=== PATIENT | female | born 1995 | race Caucasian/White ===

== ENCOUNTER 2016-06-08 11:29 | Inpatient (IN) | payer OTHER ==
[2016-06-08] MEDS ORDERED: Sodium Chloride 0.9% 1,000 ML IV ONE ×2 (12:30→13:52)
[2016-06-08] MEDS ORDERED: diphenhydrAMINE 50 MG/ML SDV IVPUSH ONE (12:30)
[2016-06-08] MEDS ORDERED: Sodium Chloride 0.9% 10 ML Syringe FLUSH PRN (12:30)
[2016-06-08] MEDS ORDERED: Metoclopramide 10 MG/2 ML SDV IVPUSH ONE (12:31)
--- NOTE | 2016-06-08 12:38 | EDM.PDOC ---
ED HPI GI/ABDOMINAL - General Chief Complaint: Gastrointestinal Problem Stated Complaint: 7 WK PREG/SEVERE NAUSEA Time Seen by Provider: 06/08/16 12:15 Source of Information: Reports: Patient History Limitations: Reports: No limitations - History of Present Illness INITIAL COMMENTS - FREE TEXT/NARRATIVE: Patient is a 21-year-old female who is approximately 7 weeks who presents to the ED complaining of severe morning sickness that started at the fifth week of . States the nausea and vomiting has been persistent with little relief. She has been unable to keep any liquids or foods down. States she has mild abdominal discomfort described as crampy sensation when vomiting. In addition she complains of burning sensation to the posterior throat secondary to vomiting. was confirmed in the clinic. She is currently on no vitamins secondary to uncontrolled emesis. First appointment TELETYPE INSTALLER specialist is July 04. She has a history of cholecystectomy. Preg hx [id number]. She denies any vaginal bleeding, CP,SOB, Fever/Chills, or dysuria. Timing/Duration: Reports: Constant, Waxing/waning Location: generalized Quality: Reports: cramping Severity: mild Worsens with: Reports: vomiting Context: Reports: other () Associated Symptoms (-Female): Reports: diarrhea (intermittent), nausea/ vomiting Treatments SET UP WORKER: Reports: Other (see below) (none stated. ) - Related Data Allergies/ADRs: Allergies Allergy/AdvReac Type Severity Reaction Status Date / Time No Known Allergies Allergy Verified 03/27/16 16:48 Home Meds: Home Meds PNV95/Ferrous Fumarate/FA [ Tablet] 1 each PO DAILY 06/08/16 [History] Past Medical History Genitourinary History: Reports: UTI, recurrent TELETYPE INSTALLER History: Reports: , Spontaneous Other OB/BYN History: x2 - Past Surgical History GI Surgical History: Reports: Cholecystectomy Social & Family History - Family History Family Medical History: Noncontributory - Tobacco Use Smoking Status *Q: Never Smoker - Caffeine Use Caffeine Use: Reports: Soda - Recreational Drug Use Recreational Drug Use: No ED ROS GENERAL - Review of Systems Review Of Systems: See Below Constitutional: Reports: malaise, decreased appetite. Denies: fever, chills HEENT: Reports: Throat pain (From vomiting. ). Denies: Throat swelling Respiratory: Denies: Shortness of Breath, Cough, Sputum Cardiovascular: Denies: Chest pain, Lightheadedness GI/Abdominal: Reports: Abdominal pain (cramping with vomiting. ), Diarrhea, Decreased appetite, Hematemesis, Nausea, Vomiting. Denies: Constipation : Reports: no symptoms Musculoskeletal: Reports: no symptoms Neurological: Reports: Dizziness ED EXAM, GI/ABD - Physical Exam Exam: See Below Exam Limited By: Other (vomiting) General Appearance: alert, WD/WN, moderate distress Ears: hearing grossly normal Nose: normal inspection Throat/Mouth: Normal inspection, Normal oropharynx, Normal voice, No airway compromise Neck: normal inspection, supple, non-tender Respiratory/Chest: no respiratory distress, lungs clear, normal breath sounds, no accessory muscle use Cardiovascular: normal peripheral pulses, regular rate, rhythm GI/Abdominal: normal bowel sounds, soft, non tender, no organomegaly, no distention Neurological: alert, oriented, CN II-XII intact, normal cognition, no motor/ sensory deficits Psychiatric: normal affect, normal mood Skin Exam: Warm, Dry, Intact, Normal color Course - Vital Signs Last Recorded V/S: Last Vital Signs Temp 97.9 F 06/09/16 15:48 Pulse 65 06/09/16 15:48 Resp 13 06/09/16 15:48 BP 91/49 L 06/09/16 15:48 Pulse Ox 97 06/09/16 15:48 - Orders/Labs/Meds Orders: Medication Orders Sodium Chloride (Normal Saline) 1,000 mls @ 250 mls/hr IV ASDIRECTED [facility] Last Admin: 06/08/16 16:16 Dose: 250 mls/hr Dextrose/Lactated Ringer's (Dextrose 5%-Lactated Ringers) 1,000 mls @ 150 mls/ hr IV ASDIRECTED [facility] Last Admin: 06/09/16 15:49 Dose: 150 mls/hr Infusion: 06/09/16 15:49 Dose: 150 mls/hr Admin: 06/09/16 09:26 Dose: 150 mls/hr Infusion: 06/09/16 09:17 Dose: 150 mls/hr Admin: 06/09/16 02:36 Dose: 150 mls/hr Infusion: 06/09/16 02:31 Dose: 150 mls/hr Admin: 06/08/16 19:50 Dose: 150 mls/hr Magnesium Sulfate (Pharmacy To Dose - Magnesium Replacement) 1 dose .XX ASDIRECTED [facility] Metoclopramide HCl (Reglan) 10 mg IVPUSH Q6H PRN PRN Reason: Nausea Last Admin: 06/09/16 17:18 Dose: 10 mg Admin: 06/09/16 05:20 Dose: 10 mg Admin: 06/08/16 17:59 Dose: 10 mg Morphine Sulfate (Morphine) 10 mg IM Q6H PRN PRN Reason: Pain (moderate 4-6) Last Admin: 06/08/16 21:46 Dose: 10 mg Potassium Chloride (Pharmacy To Dose - Potassium Replacement) 1 dose .XX ASDIRECTED [facility] Promethazine HCl (Phenergan) 25 mg IM Q6H PRN PRN Reason: Nausea/Vomiting Last Admin: 06/08/16 21:47 Dose: 25 mg Sodium Chloride (Saline Flush) 10 ml FLUSH ASDIRECTED PRN PRN Reason: Keep Vein Open Last Admin: 06/08/16 12:51 Dose: 10 ml Labs: Laboratory Tests 06/08/16 06/08/16 06/08/16 Range/Units 12:39 12:39 12:39 WBC 10.13 H (3.98-10.04) K/mm3 RBC 5.43 H (3.98-5.22) M/mm3 Hgb 15.9 H (11.2-15.7) gm/L Hct 42.6 (34.1-44.9) % MCV 78.5 L (79.4-94.8) fl MCH 29.3 (25.6-32.2) pg MCHC 37.3 H (32.2-35.5) g/dl RDW Std Deviation 35.9 L (36.4-46.3) fL Plt Count 252 (182-369) K/mm3 MPV 11.8 (9.4-12.3) fl Neut % (Auto) 83.4 H (34.0-71.1) % Lymph % (Auto) 10.7 L (19.3-51.7) % [place] % (Auto) 5.7 (4.7-12.5) % Eos % (Auto) 0 L (0.7-5.8) Baso % (Auto) 0.1 (0.1-1.2) % Neut # 8.45 H (1.56-6.13) K/mm3 Lymph # 1.08 L (1.18-3.74) K/mm3 [place] # 0.58 H (0.24-0.36) K/mm3 Eos # 0.00 L (0.04-0.36) K/mm3 Baso # 0.01 (0.01-0.08) K/mm3 Manual Slide Review Normal smear Sodium 136 (136-145) mEq/L Potassium 3.3 L (3.5-5.1) mEq/L Chloride 99 (98-107) mEq/L Carbon Dioxide 21 (21-32) mEq/L Anion Gap 19.3 H (5-15) BUN 12 (7-18) mg/dL Creatinine 0.8 (0.55-1.02) mg/dL Est Cr Clr Drug Dosing 121.30 mL/min Estimated GFR (MDRD) > 60 (>60) mL/min BUN/Creatinine Ratio 15.0 (14-18) Glucose 109 H (74-106) mg/dL Calcium 10.1 (8.5-10.1) mg/dL Magnesium (1.8-2.4) mg/dl Total Bilirubin 1.0 (0.2-1.0) mg/dL AST 24 (15-37) U/L ALT 49 (14-59) U/L Alkaline Phosphatase 85 (46-116) U/L C-Reactive Protein 1.6 H* (<1.0) mg/dL Total Protein 8.7 H (6.4-8.2) g/dl Albumin 4.2 (3.4-5.0) g/dl Globulin 4.5 gm/dL Albumin/Globulin Ratio 0.9 L (1-2) Lipase 89 (73-393) U/L HCG, Quant 812999.0 mIU/mL Urine Color (Yellow) Urine Appearance (Clear) Urine pH (5.0-8.0) Ur Specific [place] (1.005-1.030) Urine Protein (Negative) Urine Glucose (UA) (Negative) Urine Ketones (Negative) Urine Occult Blood (Negative) Urine Nitrite (Negative) Urine Bilirubin (Negative) Urine Urobilinogen (0.2-1.0) Ur Leukocyte Esterase (Negative) Urine RBC (0-5) /hpf Urine WBC (0-5) /hpf Ur Squamous Epith Cells (0-5) /hpf Urine Bacteria (FEW) /hpf Urine Mucus (FEW) /hpf Hep Bs Antigen (NONREACTIVE) HIV-1 Ab Rapid Screen (NEGATIVE) Rubella IgG Antibody (REACTIVE) Blood Type Gel Antibody Screen 06/08/16 06/08/16 06/08/16 Range/Units 12:39 12:39 12:39 WBC (3.98-10.04) K/mm3 RBC (3.98-5.22) M/mm3 Hgb (11.2-15.7) gm/L Hct (34.1-44.9) % MCV (79.4-94.8) fl MCH (25.6-32.2) pg MCHC (32.2-35.5) g/dl RDW Std Deviation (36.4-46.3) fL Plt Count (182-369) K/mm3 MPV (9.4-12.3) fl Neut % (Auto) (34.0-71.1) % Lymph % (Auto) (19.3-51.7) % [place] % (Auto) (4.7-12.5) % Eos % (Auto) (0.7-5.8) Baso % (Auto) (0.1-1.2) % Neut # (1.56-6.13) K/mm3 Lymph # (1.18-3.74) K/mm3 [place] # (0.24-0.36) K/mm3 Eos # (0.04-0.36) K/mm3 Baso # (0.01-0.08) K/mm3 Manual Slide Review Sodium (136-145) mEq/L Potassium (3.5-5.1) mEq/L Chloride (98-107) mEq/L Carbon Dioxide (21-32) mEq/L Anion Gap (5-15) BUN (7-18) mg/dL Creatinine (0.55-1.02) mg/dL Est Cr Clr Drug Dosing mL/min Estimated GFR (MDRD) (>60) mL/min BUN/Creatinine Ratio (14-18) Glucose (74-106) mg/dL Calcium (8.5-10.1) mg/dL Magnesium 1.9 (1.8-2.4) mg/dl Total Bilirubin (0.2-1.0) mg/dL AST (15-37) U/L ALT (14-59) U/L Alkaline Phosphatase (46-116) U/L C-Reactive Protein (<1.0) mg/dL Total Protein (6.4-8.2) g/dl Albumin (3.4-5.0) g/dl Globulin gm/dL Albumin/Globulin Ratio (1-2) Lipase (73-393) U/L HCG, Quant mIU/mL Urine Color (Yellow) Urine Appearance (Clear) Urine pH (5.0-8.0) Ur Specific [place] (1.005-1.030) Urine Protein (Negative) Urine Glucose (UA) (Negative) Urine Ketones (Negative) Urine Occult Blood (Negative) Urine Nitrite (Negative) Urine Bilirubin (Negative) Urine Urobilinogen (0.2-1.0) Ur Leukocyte Esterase (Negative) Urine RBC (0-5) /hpf Urine WBC (0-5) /hpf Ur Squamous Epith Cells (0-5) /hpf Urine Bacteria (FEW) /hpf Urine Mucus (FEW) /hpf Hep Bs Antigen Nonreactive (NONREACTIVE) HIV-1 Ab Rapid Screen Negative (NEGATIVE) Rubella IgG Antibody Reactive (pos) (REACTIVE) Blood Type Gel Antibody Screen 06/08/16 06/08/16 Range/Units 12:39 13:59 WBC (3.98-10.04) K/mm3 RBC (3.98-5.22) M/mm3 Hgb (11.2-15.7) gm/L Hct (34.1-44.9) % MCV (79.4-94.8) fl MCH (25.6-32.2) pg MCHC (32.2-35.5) g/dl RDW Std Deviation (36.4-46.3) fL Plt Count (182-369) K/mm3 MPV (9.4-12.3) fl Neut % (Auto) (34.0-71.1) % Lymph % (Auto) (19.3-51.7) % [place] % (Auto) (4.7-12.5) % Eos % (Auto) (0.7-5.8) Baso % (Auto) (0.1-1.2) % Neut # (1.56-6.13) K/mm3 Lymph # (1.18-3.74) K/mm3 [place] # (0.24-0.36) K/mm3 Eos # (0.04-0.36) K/mm3 Baso # (0.01-0.08) K/mm3 Manual Slide Review Sodium (136-145) mEq/L Potassium (3.5-5.1) mEq/L Chloride (98-107) mEq/L Carbon Dioxide (21-32) mEq/L Anion Gap (5-15) BUN (7-18) mg/dL Creatinine (0.55-1.02) mg/dL Est Cr Clr Drug Dosing mL/min Estimated GFR (MDRD) (>60) mL/min BUN/Creatinine Ratio (14-18) Glucose (74-106) mg/dL Calcium (8.5-10.1) mg/dL Magnesium (1.8-2.4) mg/dl Total Bilirubin (0.2-1.0) mg/dL AST (15-37) U/L ALT (14-59) U/L Alkaline Phosphatase (46-116) U/L C-Reactive Protein (<1.0) mg/dL Total Protein (6.4-8.2) g/dl Albumin (3.4-5.0) g/dl Globulin gm/dL Albumin/Globulin Ratio (1-2) Lipase (73-393) U/L HCG, Quant mIU/mL Urine Color Yellow (Yellow) Urine Appearance Slt cloudy H (Clear) Urine pH 5.5 (5.0-8.0) Ur Specific [place] > or = 1.030 (1.005-1.030) Urine Protein 2+ H (Negative) Urine Glucose (UA) Negative (Negative) Urine Ketones 3+ H (Negative) Urine Occult Blood Negative (Negative) Urine Nitrite Negative (Negative) Urine Bilirubin 1+ H (Negative) Urine Urobilinogen 1.0 (0.2-1.0) Ur Leukocyte Esterase Negative (Negative) Urine RBC 0-5 (0-5) /hpf Urine WBC 0-5 (0-5) /hpf Ur Squamous Epith Cells 0-5 (0-5) /hpf Urine Bacteria Moderate H (FEW) /hpf Urine Mucus Many H (FEW) /hpf Hep Bs Antigen (NONREACTIVE) HIV-1 Ab Rapid Screen (NEGATIVE) Rubella IgG Antibody (REACTIVE) Blood Type O POSITIVE Gel Antibody Screen Negative Meds: Medications Generic Name Dose Route Start Last Admin Trade Name Courtney PRN Reason Stop Dose Admin Sodium Chloride 1,000 mls @ 250 mls/hr 06/08/16 16:15 06/08/16 16:16 Normal Saline IV 250 mls/hr ASDIRECTED KIKI Administration Dextrose/Lactated Ringer's 1,000 mls @ 150 mls/hr 06/08/16 19:09 06/09/16 15: 49 Dextrose 5%-Lactated Ringers IV 150 mls/hr ASDIRECTED KIKI Administration Magnesium Sulfate 1 dose 06/08/16 19:30 Pharmacy To Dose - Magnesium Replacement .XX ASDIRECTED [facility] Metoclopramide HCl 10 mg 06/08/16 19:09 06/09/16 17:18 Reglan IVPUSH 10 mg Q6H PRN Administration Nausea Morphine Sulfate 10 mg 06/08/16 21:33 06/08/16 21:46 Morphine IM 10 mg Q6H PRN Administration Pain (moderate 4-6) Potassium Chloride 1 dose 06/08/16 19:30 Pharmacy To Dose - Potassium Replacement .XX ASDIRECTED [facility] Promethazine HCl 25 mg 06/08/16 21:34 06/08/16 21:47 Phenergan IM 25 mg Q6H PRN Administration Nausea/Vomiting Sodium Chloride 10 ml 06/08/16 12:30 06/08/16 12:51 Saline Flush FLUSH 10 ml ASDIRECTED PRN Administration Keep Vein Open Discontinued Medications Generic Name Dose Route Start Last Admin Trade Name Courtney PRN Reason Stop Dose Admin Diphenhydramine HCl 50 mg 06/08/16 12:30 06/08/16 12:55 Benadryl IVPUSH 06/08/16 12:31 50 mg ONETIME ONE Administration Sodium Chloride 1,000 mls @ 999 mls/hr 06/08/16 12:30 06/08/16 12:49 Normal Saline IV 06/08/16 13:30 999 mls/hr ONETIME ONE Administration Sodium Chloride 1,000 mls @ 999 mls/hr 06/08/16 13:52 06/08/16 13:58 Normal Saline IV 06/08/16 14:52 999 mls/hr ONETIME ONE Administration Potassium Chloride 10 meq/ 100 mls @ 100 mls/hr 06/08/16 19:30 06/08/16 23:41 Premix IV 06/08/16 23:29 100 mls/hr Q1H KIKI Administration Magnesium Sulfate 50 mls @ 50 mls/hr 06/08/16 19:45 06/09/16 00:44 Magnesium Sulfate 2 Gm In Water 50 Ml IV 06/08/16 20:44 50 mls/hr ONETIME ONE Administration Lorazepam 0.5 mg 06/08/16 15:41 06/08/16 15:59 Ativan IVPUSH 06/08/16 15:42 0.5 mg ONETIME ONE Administration Metoclopramide HCl 7.5 mg 06/08/16 12:31 06/08/16 12:49 Reglan IVPUSH 06/08/16 12:32 7.5 mg ONETIME ONE Administration Metoclopramide HCl Confirm 06/08/16 17:56 06/08/16 19:40 Reglan Administered 06/08/16 17:57 Not Given Dose 10 mg .ROUTE .STK-MED ONE Ondansetron HCl 8 mg 06/08/16 14:36 06/08/16 15:54 Zofran IVPUSH 06/08/16 14:37 8 mg ONETIME ONE Administration Potassium Chloride 40 meq 06/08/16 14:03 06/08/16 14:08 Klor-Con M20 PO 06/08/16 14:04 40 meq ONETIME ONE Administration Promethazine HCl 25 mg 06/08/16 14:45 06/08/16 15:02 Phenergan IM 06/08/16 14:46 25 mg ONETIME ONE Administration - Re-Assessments/Exams Free Text/Narrative Re-Assessment/Exam: Order peripheral IV with normal saline 1000 mL per hour, reglan 7.5, benadryl 50 mg IV, CBC, chem 14, CRP, UA with micro, quantitative hCG, lipase, UA with micro. 06/08/16 12:34 Labs reviewed. 06/08/16 13:53 reassessment, nausea vomiting has subsided with the above therapies. She is resting comfortably. Will order additional liter of normal saline. 06/08/16 14:02 Patient able to tolerate PO medications. Ordered potassium supplementation. 06/08/16 14:36 reassessment, patient vomited short after swallowing a potassium supplementation. Have ordered Zofran 8 mg IV. Patient's currently receiving a second liter of fluid. 06/08/16 14:40 Discontinued IV Zofran. Patient refused. Will look at ordering IM Phenergan. 06/08/16 15:41 Reassessement, Patients nausea/emesis has not improved. Ordered ativan 0.5mg IVP. Will arrange admission to the hospital. 06/08/16 15:[address] Paul on-call TELETYPE INSTALLER specialist. Requested Dr. Cardenas admit for management of nausea and rehydration. Dr. Paul will manage the . Requests N.p.o. after midnight gallbladder ultrasound in the a.m. Upon admission IV fluids started lactated Ringer's 20 mEq per bag of LR150 per hour. In addition he requests CMP and CBC in the a.m. Test for H.Pylori. Transvaginal ultrasound will be obtained as well in the a.m. 06/08/16 16:24 Case management is completing MCG in preparation for admission. Attempted to contact Dr. Cardenas with no answer. 06/08/16 16:34 Dr. Paul will admit to the OB Floor and consult Dr. Cardenas for management of electrolyte/Nausea/Vomiting. Admission orders placed by Dr. Snow. Departure - Departure Time of Disposition: 16:35 Disposition: Admitted As Inpatient 67 Clinical Impression: Hyperemesis arising during , Dehydration, Hypokalemia
[2016-06-08] MEDS ORDERED: Potassium Chloride 20 MEQ Tab.ER PO ONE (14:03)
[2016-06-08] MEDS ORDERED: Ondansetron 4 MG/2 ML SDV IVPUSH ONE (14:36)
[2016-06-08] MEDS ORDERED: Promethazine 25 MG/ML SDV IM ONE (14:45)
[2016-06-08] MEDS ORDERED: LORazepam 2 MG/ML MDV IVPUSH ONE (15:41)
[2016-06-08] MEDS ORDERED: Sodium Chloride 0.9% 1,000 ML IV SCH (16:15)
--- NOTE | 2016-06-08 17:39 | PCM.LDHP ---
L&D History of Present Illness - General Date of Service: 06/08/16 Admit Problem/Dx: Admission Diagnosis/Problem Admission Diagnosis/Problem Vomiting during Source of Information: Patient History Limitations: Reports: No limitations - History of Present Illness Introduction:: 21-year-old, G2, P0, 010, LMP 04/20/16 with estimated gestational age of 7 weeks one day and ANETA by LMP 01/27/17 . Patient presented to the ER with 2 week history of nausea and vomiting of . Patient had one previous with miscarriage which occurred spontaneously without medication. After the miscarriage, and no D&C performed. Patient unsure. Blood type and Rh. Same has been ordered. Patient has had no vaginal bleeding transvaginal OB ultrasound has been ordered for tomorrow morning. Patient has had previous, cholecystectomy. No adnexal pain. Patient unable: Solid. Neck was hyperemesis , gravidarum with nausea and vomiting, and metabolic embolic Timing/Duration: Reports: day(s):, gradual onset Improves with: Reports: None Worsens with: Reports: None Associated Symptoms: Reports: N - Related Data Allergies/Adverse Reactions: Allergies Allergy/AdvReac Type Severity Reaction Status Date / Time No Known Allergies Allergy Verified 03/27/16 16:48 Home Medications: Home Meds PNV95/Ferrous Fumarate/FA [ Tablet] 1 each PO DAILY 06/08/16 [History] Past Medical History Genitourinary History: Reports: UTI, recurrent BUYING INTERN History: Reports: , Spontaneous : 2 Para: 0 (0010) Other OB/BYN History: x2 - Past Surgical History GI Surgical History: Reports: Cholecystectomy Social & Family History - Family History Family Medical History: Noncontributory - Tobacco Use Smoking Status *Q: Never Smoker - Caffeine Use Caffeine Use: Reports: Soda - Recreational Drug Use Recreational Drug Use: No H&P Review of Systems - Review of Systems: Review Of Systems: See Below General: Reports: no symptoms HEENT: Reports: no symptoms Pulmonary: Reports: No Symptoms Cardiovascular: Reports: no symptoms Gastrointestinal: Reports: Nausea, Vomiting Genitourinary: Reports: no symptoms Musculoskeletal: Reports: no symptoms Skin: Reports: no symptoms Psychiatric: Reports: no symptoms Neurological: Reports: No Symptoms Hematologic/Lymphatic: Reports: no symptoms Immunologic: Reports: no symptoms L&D Exam - Exam Exam: See Below - Vital Signs Vital Signs: Last Vital Signs Temp 98.4 F 06/08/16 11:45 Pulse 92 06/08/16 11:45 Resp 18 06/08/16 11:45 BP 154/107 H 06/08/16 11:45 Pulse Ox 99 06/08/16 11:45 Weight: 200 lb - OB Specific Fundal Height in cm: 7 - Exam General: alert, oriented HEENT: Mucosa moist & pink (Dry, patient appears dehydrated) Neck: supple, trachea midline Lungs: Clear to auscultation, Normal respiratory effort Cardiovascular: regular rate, regular rhythm Abdomen: normal bowel sounds, soft Genitourinary: Normal external exam (Uterus is retroflexed, 7-8 week size) Extremities: normal inspection Skin: warm, dry, intact Psychiatric: alert, normal affect, normal mood - Patient Data Result Diagrams: 06/08/16 12:39 06/08/16 12:39 - Problem List (1) 7 weeks gestation of SNOMED Code(s): 04468169 ICD Code: Z3A.01 - LESS THAN 8 WEEKS GESTATION OF Status: Acute Current Visit: Yes (2) Dehydration SNOMED Code(s): 68440227 ICD Code: E86.0 - DEHYDRATION Status: Acute Current Visit: Yes (3) Hyperemesis arising during SNOMED Code(s): 06997170 ICD Code: O21.0 - MILD HYPEREMESIS GRAVIDARUM Status: Acute Current Visit : Yes (4) Hypokalemia SNOMED Code(s): 57949018 ICD Code: E87.6 - HYPOKALEMIA Status: Acute Current Visit: Yes Problem List Initiated/Reviewed/Updated: No Orders Last 24hrs: Active Orders 24 hr Category Date Time Status Patient Status Manage Transfer [TRANSFER] Routine ADT 06/08/16 17:13 Active Notify Provider Consults [RC] ASDIRECTED Care 06/08/16 17:30 Active Consult to Physician [CONS] Urgent Cons 06/08/16 17:27 Active Medication Orders Sodium Chloride (Normal Saline) 1,000 mls @ 250 mls/hr IV ASDIRECTED KIKI Last Admin: 06/08/16 16:16 Dose: 250 mls/hr Sodium Chloride (Saline Flush) 10 ml FLUSH ASDIRECTED PRN PRN Reason: Keep Vein Open Last Admin: 06/08/16 12:51 Dose: 10 ml
[2016-06-08] MEDS ORDERED: Metoclopramide 10 MG/2 ML SDV ONE (17:56)
[2016-06-08] MEDS: Metoclopramide 10 MG/2 ML SDV IVPUSH PRN (17:59)
--- NOTE | 2016-06-08 19:03 | PCM.CONS ---
H&P History of Present Illness - General Date of Service: 06/08/16 Admit Problem/Dx: Admission Diagnosis/Problem Admission Diagnosis/Problem Vomiting during Source of Information: Patient, Family, Old records, Provider, RN notes reviewed History Limitations: Reports: No limitations - History of Present Illness Initial Comments - Free Text/Narative: This is a pleasant 21 yo, G2, P0, 010, LMP 04/20/16 with estimated gestational age of 7 weeks who comes in with a 2 week hx/o nausea and vomiting. She denies any other acute issues. Her initial work in ED shows a CBC remarkable for WBC 10.13, Hgb15.9, and Neutrophils 8.45. He Chemistry is significant for K 3.3, AG 19.3, BS 109, CRP 1.6, Total protein 8.7, and Hcg [id number]. UA shows spec gravity > or + 1030 suggestive of dehydration. Hospitalist Team was consulted for medical management related to e-lytes abnormality. 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 Denies: fever, chills, weakness HEENT: Reports: no symptoms Pulmonary: Denies: Shortness of Breath Cardiovascular: Denies: chest pain Gastrointestinal: Reports: Nausea, Vomiting. Denies: Abdominal pain Genitourinary: Reports: no symptoms Musculoskeletal: Reports: no symptoms Skin: Denies: cyanosis, pruritis, rash, erythema Psychiatric: Denies: depression, anxiety, hallucinations Neurological: Denies: Confusion, Difficulty Walking, Gait Disturbance Hematologic/Lymphatic: Reports: no symptoms Immunologic: Reports: no symptoms Exam - Exam Exam: See Below - Vital Signs Vital Signs: Last Vital Signs Temp 37.1 C 06/08/16 17:42 Pulse 113 H 06/08/16 18:17 Resp 16 06/08/16 18:17 BP 143/95 H 06/08/16 18:17 Pulse Ox 100 06/08/16 18:17 Weight: 90.718 kg - Exam General: alert, oriented, cooperative, mild distress HEENT: Conjunctiva clear, EACs clear, EOMI, Hearing intact, Mucosa moist & pink , Nares patent, Normal nasal septum, Posterior pharynx clear, PERRLA Neck: supple, trachea midline, 2+ carotid pulse wo bruit, full range of motion Lungs: Clear to auscultation, Normal respiratory effort Cardiovascular: regular rate, regular rhythm Abdomen: normal bowel sounds, soft. No: organomegaly (Female) Exam: Deferred Rectal (Female) Exam: Deferred Back Exam: normal inspection, decreased range of motion Extremities: normal inspection, normal pulses. No: clubbing, cyanosis, calf tenderness, edema Peripheral Pulses: 3+: posterior tibial (L), posterior tibial (R), dorsalis pedis (L), dorsalis pedis (R) Skin: warm, dry, intact Neuro Extensive - Mental Status: oriented x3, normal cognition, memory intact Neuro Extensive - Motor, Sensory, Reflexes: CN II-XII intact, normal gait Psychiatric: alert, normal affect, normal mood - Patient Data Result Diagrams: 06/08/16 12:39 06/08/16 12:39 Consult PN Assessment/Plan POD#: 0 Procedures: Procedures EMERGENCY DEPT VISIT (03/27/16) THER/PROPH/DIAG INJ SC/IM (03/27/16) Problem List Initiated/Reviewed/Updated: Yes Plan: Assessment: 7th Week Dehydration Hyperemesis Gravidum Hypokalemia Plan: Patient is fairly stable Routine AM Labs Continue IV fluids She was not able to keep her oral K dose Will start her with IV 40 mEq, orders called in to her nurse Continue supportive care Thank you for he opportunity to participate in the management of this patient. We will follow her along with you. Requesting Provider: Dr. Paul Date Consult Requested: 06/08/16 Reason for Consult: E-Lytes Management Patient History Reviewed: Yes Admission H&P Reviewed: Yes Consult Result/Summary:: Hypokalemia to replete and monitor
[2016-06-08] MEDS ORDERED: Magnesium Sulfate/Water 50 ML IV ONE (19:45)
[2016-06-08] MEDS: Dextrose 5%-Lactated Ringers 1,000 ML IV SCH (19:50)
[2016-06-08] MEDS: Potassium Chloride 10 MEQ in Premix Bag 1 BAG IV SCH ×4 (19:52→23:41)
[2016-06-08] MEDS: Morphine 10 MG/ML Syringe IM PRN (21:46)
[2016-06-08] MEDS: Promethazine 25 MG/ML SDV IM PRN (21:47)
[2016-06-09] MEDS: Dextrose 5%-Lactated Ringers 1,000 ML IV SCH ×4 (02:36→22:37)
[2016-06-09] MEDS: Metoclopramide 10 MG/2 ML SDV IVPUSH PRN ×2 (05:20→17:18)
--- NOTE | 2016-06-09 07:50 | PCM.PN ---
- General Info Date of Service: 06/09/16 Admission Dx/Problem (Free Text): Admission Diagnosis/Problem Admission Diagnosis/Problem Vomiting during Functional Status: Reports: pain controlled - Review of Systems General: Reports: No Symptoms HEENT: Reports: no symptoms Pulmonary: Reports: no symptoms Cardiovascular: Reports: No Symptoms Gastrointestinal: Reports: No symptoms Genitourinary: Reports: no symptoms Musculoskeletal: Reports: no symptoms Skin: Reports: no symptoms Neurological: Reports: No Symptoms Psychiatric: Reports: no symptoms - Patient Data Vitals - most recent: Last Vital Signs Temp 98.2 F 06/09/16 04:00 Pulse 71 06/09/16 05:02 Resp 16 06/09/16 04:00 BP 116/67 06/09/16 05:02 Pulse Ox 97 06/09/16 05:02 Weight - most recent: 202 lb 8 oz I&O - last 24 hours: Intake & Output 06/08/16 06/09/16 06/09/16 22:59 06:59 14:59 Output Total 350 600 Balance -350 -600 Med Orders - Current: Current Medications Sodium Chloride (Normal Saline) 1,000 mls @ 250 mls/hr IV ASDIRECTED [facility]IKI Last Admin: 06/08/16 16:16 Dose: 250 mls/hr Dextrose/Lactated Ringer's (Dextrose 5%-Lactated Ringers) 1,000 mls @ 150 mls/ hr IV ASDIRECTED [facility]IKI Last Admin: 06/09/16 02:36 Dose: 150 mls/hr Magnesium Sulfate (Pharmacy To Dose - Magnesium Replacement) 1 dose .XX ASDIRECTED [facility] Metoclopramide HCl (Reglan) 10 mg IVPUSH Q6H PRN PRN Reason: Nausea Last Admin: 06/09/16 05:20 Dose: 10 mg Morphine Sulfate (Morphine) 10 mg IM Q6H PRN PRN Reason: Pain (moderate 4-6) Last Admin: 06/08/16 21:46 Dose: 10 mg Potassium Chloride (Pharmacy To Dose - Potassium Replacement) 1 dose .XX ASDIRECTED [facility] Promethazine HCl (Phenergan) 25 mg IM Q6H PRN PRN Reason: Nausea/Vomiting Last Admin: 06/08/16 21:47 Dose: 25 mg Sodium Chloride (Saline Flush) 10 ml FLUSH ASDIRECTED PRN PRN Reason: Keep Vein Open Last Admin: 06/08/16 12:51 Dose: 10 ml Discontinued Medications Diphenhydramine HCl (Benadryl) 50 mg IVPUSH ONETIME ONE Stop: 06/08/16 12:31 Last Admin: 06/08/16 12:55 Dose: 50 mg Sodium Chloride (Normal Saline) 1,000 mls @ 999 mls/hr IV ONETIME ONE Stop: 06/08/16 13:30 Last Admin: 06/08/16 12:49 Dose: 999 mls/hr Sodium Chloride (Normal Saline) 1,000 mls @ 999 mls/hr IV ONETIME ONE Stop: 06/08/16 14:52 Last Admin: 06/08/16 13:58 Dose: 999 mls/hr Potassium Chloride 10 meq/ (Premix) 100 mls @ 100 mls/hr IV Q1H KIKI Stop: 06/08/16 23:29 Last Admin: 06/08/16 23:41 Dose: 100 mls/hr Magnesium Sulfate (Magnesium Sulfate 2 Gm In Water 50 Ml) 50 mls @ 50 mls/hr IV ONETIME ONE Stop: 06/08/16 20:44 Last Admin: 06/09/16 00:44 Dose: 50 mls/hr Lorazepam (Ativan) 0.5 mg IVPUSH ONETIME ONE Stop: 06/08/16 15:42 Last Admin: 06/08/16 15:59 Dose: 0.5 mg Metoclopramide HCl (Reglan) 7.5 mg IVPUSH ONETIME ONE Stop: 06/08/16 12:32 Last Admin: 06/08/16 12:49 Dose: 7.5 mg Metoclopramide HCl (Reglan) Confirm Administered Dose 10 mg .ROUTE .STK-MED ONE Stop: 06/08/16 17:57 Last Admin: 06/08/16 19:40 Dose: Not Given Ondansetron HCl (Zofran) 8 mg IVPUSH ONETIME ONE Stop: 06/08/16 14:37 Last Admin: 06/08/16 15:54 Dose: 8 mg Potassium Chloride (Klor-Con M20) 40 meq PO ONETIME ONE Stop: 06/08/16 14:04 Last Admin: 06/08/16 14:08 Dose: 40 meq Promethazine HCl (Phenergan) 25 mg IM ONETIME ONE Stop: 06/08/16 14:46 Last Admin: 06/08/16 15:02 Dose: 25 mg - Exam General: alert, oriented HEENT: Mucous membr. moist/pink Neck: supple Lungs: Clear to auscultation, Normal respiratory effort Cardiovascular: Regular Rate, Regular Rhythm Abdomen: bowel sounds present, soft, no tenderness, no distension (Female) Exam: Normal external exam, Normal speculum exam, Normal bimanual exam Extremities: no edema Skin: warm, dry, intact Wound/Incisions: healing well Neurological: no new focal deficit Psy/Mental Status: alert, normal affect, normal mood - Problem List & Annotations (1) 7 weeks gestation of SNOMED Code(s): 79059712 Code(s): Z3A.01 - LESS THAN 8 WEEKS GESTATION OF Status: Acute Current Visit: Yes (2) Dehydration SNOMED Code(s): 15002825 Code(s): E86.0 - DEHYDRATION Status: Acute Current Visit: Yes (3) Hyperemesis arising during SNOMED Code(s): 19441886 Code(s): O21.0 - MILD HYPEREMESIS GRAVIDARUM Status: Acute Current Visit : Yes (4) Hypokalemia SNOMED Code(s): 87603929 Code(s): E87.6 - HYPOKALEMIA Status: Acute Current Visit: Yes - Problem List Review Problem List Initiated/Reviewed/Updated: No - My Orders Last 24 Hours: My Active Orders 06/08/16 17:27 Consult to Physician [CONS] Urgent 06/08/16 17:30 Notify Provider Consults [RC] ASDIRECTED 06/08/16 19:09 Daily Weight [Height and Weight] [RC] DAILY Vital Signs [RC] 04,12,20 RPR [REF] Stat Dextrose 5%-Lactated Ringers 1,000 ml IV ASDIRECTED Metoclopramide [Reglan] 10 mg IVPUSH Q6H PRN 06/08/16 21:33 Morphine 10 mg IM Q6H PRN 06/08/16 21:34 Promethazine [Phenergan] 25 mg IM Q6H PRN 06/08/16 Breakfast NPO [Nothing Per Oral Diet] [DIET] 06/09/16 06:15 HCG QUANTITATIVE,SERUM [CHEM] DAILY HELICOBACTER PYLORI AB IGG [CHEM] Routine 06/09/16 19:09 OB Transvaginal [US] Routine 06/10/16 05:11 CBC WITH AUTO DIFF [HEME] AM CMP [COMPREHENSIVE METABOLIC PN,CMP] [CHEM] AM HCG QUANTITATIVE,SERUM [CHEM] DAILY MAGNESIUM [CHEM] AM OB Panel [OM.PC] AM 06/11/16 05:11 CBC WITH AUTO DIFF [HEME] AM CMP [COMPREHENSIVE METABOLIC PN,CMP] [CHEM] AM HCG QUANTITATIVE,SERUM [CHEM] DAILY MAGNESIUM [CHEM] AM 06/12/16 05:11 CBC WITH AUTO DIFF [HEME] AM CMP [COMPREHENSIVE METABOLIC PN,CMP] [CHEM] AM HCG QUANTITATIVE,SERUM [CHEM] DAILY MAGNESIUM [CHEM] AM 06/13/16 05:11 CBC WITH AUTO DIFF [HEME] AM CMP [COMPREHENSIVE METABOLIC PN,CMP] [CHEM] AM MAGNESIUM [CHEM] AM - Assessment Assessment:: Advance diet to clear liquids
--- NOTE | 2016-06-09 13:09 | US ---
First trimester obstetrical ultrasound: Multiple real-time images were obtained transvaginally. Comparison: No previous study. Dates: LMP: LMP given as 04/20/16, ANETA 01/25/17, gestational age 7 weeks 1 day Current ultrasound: ANETA 01/23/17, gestational age 7 weeks 3 days Single intrauterine gestation is seen. Amniotic fluid volume is normal. Yolk sac and embryo are identified. No subchorionic hemorrhage is seen. Maternal ovaries appear unremarkable. Measurements: Gestational sac: 3.11 cm - 8 weeks 1 day [place]-rump length: 1.21 cm - 7 weeks 3 days Heart rate: 149 bpm Impression: 1. Single intrauterine gestation. Dates as noted above. 2. No complicating process is identified by ultrasound exam. Diagnostic code #1
--- NOTE | 2016-06-09 15:12 | PCM.CONSN ---
- General Info Date of Service: 06/09/16 Admission Dx/Problem (Free Text): Admission Diagnosis/Problem Admission Diagnosis/Problem Vomiting during Follow up visit Hyperemesis in early ; electrolyte abnormalities of potassium and magnesium on admission. Patient has had no further vomiting today but has been nauseous- much improved. Afebrile, VSS otherwise Functional Status: Reports: pain controlled, ambulating, urinating. Denies: new symptoms - Review of Systems General: Reports: Fatigue HEENT: Reports: no symptoms Pulmonary: Reports: no symptoms Cardiovascular: Reports: No Symptoms Gastrointestinal: Reports: Nausea. Denies: Diarrhea, Vomiting Genitourinary: Reports: no symptoms Musculoskeletal: Reports: no symptoms Neurological: Reports: No Symptoms Psychiatric: Reports: no symptoms - Patient Data Vitals - most recent: Last Vital Signs Temp 98.2 F 06/09/16 04:00 Pulse 71 06/09/16 05:02 Resp 16 06/09/16 04:00 BP 116/67 06/09/16 05:02 Pulse Ox 97 06/09/16 05:02 Weight - most recent: 202 lb 8 oz I&O - last 24 hours: Intake & Output 06/09/16 06/09/16 06/09/16 06:59 14:59 22:59 Output Total 600 300 Balance -600 -300 Lab Results last 24 hrs: Laboratory Results - last 24 hr 06/09/16 06/09/16 Range/Units 06:15 06:15 HCG, Quant 160718.0 mIU/mL H. pylori IgG Antibody Negative (NEGATIVE) Med Orders - Current: Current Medications Sodium Chloride (Normal Saline) 1,000 mls @ 250 mls/hr IV ASDIRECTED [facility] Last Admin: 06/08/16 16:16 Dose: 250 mls/hr Dextrose/Lactated Ringer's (Dextrose 5%-Lactated Ringers) 1,000 mls @ 150 mls/ hr IV ASDIRECTED [facility] Last Admin: 06/09/16 09:26 Dose: 150 mls/hr Magnesium Sulfate (Pharmacy To Dose - Magnesium Replacement) 1 dose .XX ASDIRECTED [facility] Metoclopramide HCl (Reglan) 10 mg IVPUSH Q6H PRN PRN Reason: Nausea Last Admin: 06/09/16 05:20 Dose: 10 mg Morphine Sulfate (Morphine) 10 mg IM Q6H PRN PRN Reason: Pain (moderate 4-6) Last Admin: 06/08/16 21:46 Dose: 10 mg Potassium Chloride (Pharmacy To Dose - Potassium Replacement) 1 dose .XX ASDIRECTED [facility] Promethazine HCl (Phenergan) 25 mg IM Q6H PRN PRN Reason: Nausea/Vomiting Last Admin: 06/08/16 21:47 Dose: 25 mg Sodium Chloride (Saline Flush) 10 ml FLUSH ASDIRECTED PRN PRN Reason: Keep Vein Open Last Admin: 06/08/16 12:51 Dose: 10 ml Discontinued Medications Diphenhydramine HCl (Benadryl) 50 mg IVPUSH ONETIME ONE Stop: 06/08/16 12:31 Last Admin: 06/08/16 12:55 Dose: 50 mg Sodium Chloride (Normal Saline) 1,000 mls @ 999 mls/hr IV ONETIME ONE Stop: 06/08/16 13:30 Last Admin: 06/08/16 12:49 Dose: 999 mls/hr Sodium Chloride (Normal Saline) 1,000 mls @ 999 mls/hr IV ONETIME ONE Stop: 06/08/16 14:52 Last Admin: 06/08/16 13:58 Dose: 999 mls/hr Potassium Chloride 10 meq/ (Premix) 100 mls @ 100 mls/hr IV Q1H [facility]I Stop: 06/08/16 23:29 Last Admin: 06/08/16 23:41 Dose: 100 mls/hr Magnesium Sulfate (Magnesium Sulfate 2 Gm In Water 50 Ml) 50 mls @ 50 mls/hr IV ONETIME ONE Stop: 06/08/16 20:44 Last Admin: 06/09/16 00:44 Dose: 50 mls/hr Lorazepam (Ativan) 0.5 mg IVPUSH ONETIME ONE Stop: 06/08/16 15:42 Last Admin: 06/08/16 15:59 Dose: 0.5 mg Metoclopramide HCl (Reglan) 7.5 mg IVPUSH ONETIME ONE Stop: 06/08/16 12:32 Last Admin: 06/08/16 12:49 Dose: 7.5 mg Metoclopramide HCl (Reglan) Confirm Administered Dose 10 mg .ROUTE .STK-MED ONE Stop: 06/08/16 17:57 Last Admin: 03/15/17 19:40 Dose: Not Given Ondansetron HCl (Zofran) 8 mg IVPUSH ONETIME ONE Stop: 06/08/16 14:37 Last Admin: 06/08/16 15:54 Dose: 8 mg Potassium Chloride (Klor-Con M20) 40 meq PO ONETIME ONE Stop: 06/08/16 14:04 Last Admin: 06/08/16 14:08 Dose: 40 meq Promethazine HCl (Phenergan) 25 mg IM ONETIME ONE Stop: 06/08/16 14:46 Last Admin: 06/08/16 15:02 Dose: 25 mg - Exam General: alert, oriented, cooperative, no acute distress HEENT: Pupils equal, Pupils reactive, EOMI, Mucous membr. moist/pink Neck: supple Lungs: Normal respiratory effort Cardiovascular: Regular Rate, Regular Rhythm Extremities: no edema Psy/Mental Status: alert, normal affect, normal mood Consult PN Assessment/Plan Procedures: Procedures EMERGENCY DEPT VISIT (03/27/16) THER/PROPH/DIAG INJ SC/IM (03/27/16) (1) Hyperemesis arising during SNOMED Code(s): 19500819 Code(s): O21.0 - MILD HYPEREMESIS GRAVIDARUM Priority: High Current Visit : Yes (2) 7 weeks gestation of SNOMED Code(s): 24870891 Code(s): Z3A.01 - LESS THAN 8 WEEKS GESTATION OF Priority: Medium Current Visit: Yes (3) Dehydration SNOMED Code(s): 27212230 Code(s): E86.0 - DEHYDRATION Priority: High Current Visit: Yes (4) Hypokalemia SNOMED Code(s): 36147600 Code(s): E87.6 - HYPOKALEMIA Priority: High Current Visit: Yes Problem List Initiated/Reviewed/Updated: Yes Plan: Assessment: 7th Week Dehydration Hyperemesis Gravidum Hypokalemia Plan: Patient is stable; vomiting resolved, nausea improved Routine AM Labs Continue IV fluids Replace potassium PRN, IV and can transition to PO once able to tolerate; pharmacy to assist with mag and potassium replacement. Continue supportive care Thank you for he opportunity to participate in the management of this patient. We will follow her along with you.
--- NOTE | 2016-06-09 16:57 | PCM.SN ---
- Free Text/Narrative Note: Advance diet to regular, no vomiting, and less nausea.
[2016-06-09] MEDS: Promethazine 25 MG/ML SDV IM PRN (20:20)
[2016-06-09] MEDS: Morphine 10 MG/ML Syringe IM PRN (20:21)
[2016-06-10 09:27] VITALS: BP 132/87
--- NOTE | 2016-06-10 10:15 | PCM.DCSUM1 ---
Discharge Summary - Hospital Course Free Text/Narrative:: [facility] LIVE Admission H&P Patient Name: ORI BROCK Date of : 89 Patient Status: Inpatient Attending Provider: Santo Paul Date: 06/08/16 17:34 Initialization Date: 06/08/16 17:34 L&D History of Present Illness - General Date of Service: 06/08/16 Admit Problem/Dx: Admission Diagnosis/Problem Admission Diagnosis/Problem Vomiting during Source of Information: Patient History Limitations: Reports: No limitations - History of Present Illness Introduction:: 21-year-old, G2, P0, 010, LMP 04/20/16 with estimated gestational age of 7 weeks one day and ANETA by LMP 01/27/17 . Patient presented to the ER with 2 week history of nausea and vomiting of . Patient had one previous with miscarriage which occurred spontaneously without medication. After the miscarriage, and no D&C performed. Patient unsure. Blood type and Rh. Same has been ordered. Patient has had no vaginal bleeding transvaginal OB ultrasound has been ordered for tomorrow morning. Patient has had previous, cholecystectomy. No adnexal pain. Patient unable: Solid. 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: , Spontaneous : 2 Para: 0 (0010) Other OB/BYN History: x2 - Past Surgical History GI Surgical History: Reports: Cholecystectomy Social & Family History - Family History Family Medical History: Noncontributory - Tobacco Use Smoking Status *Q: Never Smoker - Caffeine Use Caffeine Use: Reports: Soda - Recreational Drug Use Recreational Drug Use: No H&P Review of Systems - Review of Systems: Review Of Systems: See Below General: Reports: no symptoms HEENT: Reports: no symptoms Pulmonary: Reports: No Symptoms Cardiovascular: Reports: no symptoms Gastrointestinal: Reports: Nausea, Vomiting Genitourinary: Reports: no symptoms Musculoskeletal: Reports: no symptoms Skin: Reports: no symptoms Psychiatric: Reports: no symptoms Neurological: Reports: No Symptoms Hematologic/Lymphatic: Reports: no symptoms Immunologic: Reports: no symptoms L&D Exam - Exam Exam: See Below - Vital Signs Vital Signs: Last Vital Signs Temp 98.4 F 06/08/16 11:45 Pulse 92 06/08/16 11:45 Resp 18 06/08/16 11:45 BP 154/107 H 06/08/16 11:45 Pulse Ox 99 06/08/16 11:45 Weight: 200 lb - OB Specific Fundal Height in cm: 7 - Exam General: alert, oriented HEENT: Mucosa moist & pink (Dry, patient appears dehydrated) Neck: supple, trachea midline Lungs: Clear to auscultation, Normal respiratory effort Cardiovascular: regular rate, regular rhythm Abdomen: normal bowel sounds, soft Genitourinary: Normal external exam (Uterus is retroflexed, 7-8 week size) Extremities: normal inspection Skin: warm, dry, intact Psychiatric: alert, normal affect, normal mood - Patient Data Result Diagrams: 06/08/16 12:39 06/08/16 12:39 - Problem List (1) 7 weeks gestation of SNOMED Code(s): 71270974 ICD Code: Z3A.01 - LESS THAN 8 WEEKS GESTATION OF Status: Acute Current Visit: Yes (2) Dehydration SNOMED Code(s): 60345323 ICD Code: E86.0 - DEHYDRATION Status: Acute Current Visit: Yes (3) Hyperemesis arising during SNOMED Code(s): 74775898 ICD Code: O21.0 - MILD HYPEREMESIS GRAVIDARUM Status: Acute Current Visit : Yes (4) Hypokalemia SNOMED Code(s): 75932836 ICD Code: E87.6 - HYPOKALEMIA Status: Acute Current Visit: Yes Problem List Initiated/Reviewed/Updated: No Orders Last 24hrs: Active Orders 24 hr Category Date Time Status Patient Status Manage Transfer [TRANSFER] Routine ADT 06/08/16 17:13 Active Notify Provider Consults [RC] ASDIRECTED Care 06/08/16 17:30 Active Consult to Physician [CONS] Urgent Cons 06/08/16 17:27 Active Medication Orders Sodium Chloride (Normal Saline) 1,000 mls @ 250 mls/hr IV ASDIRECTED KIKI Last Admin: 06/08/16 16:16 Dose: 250 mls/hr Sodium Chloride (Saline Flush) 10 ml FLUSH ASDIRECTED PRN PRN Reason: Keep Vein Open Last Admin: 06/08/16 12:51 Dose: 10 ml Additional CC's: Nola Cardenas Dismiss Monday06/10/16 placed on Reglan 10 mg po q6-8h disp 50 refill 1. On regular diet no vomiting x24 hr. Report given to Dr Chavez whom she will be seeing 07/04/16 HPI Initial Comments: [facility] LIVE Admission H&P Patient Name: ORI BROCK Date of : [birth year] Patient Status: Inpatient Attending Provider: Santo Paul Date: 06/08/16 17:34 Initialization Date: 06/08/16 17:34 L&D History of Present Illness - General Date of Service: 06/08/16 Admit Problem/Dx: Admission Diagnosis/Problem Admission Diagnosis/Problem Vomiting during Source of Information: Patient History Limitations: Reports: No limitations - History of Present Illness Introduction:: 21-year-old, G2, P0, 010, LMP 04/20/16 with estimated gestational age of 7 weeks one day and ANETA by LMP 01/27/17 . Patient presented to the ER with 2 week history of nausea and vomiting of . Patient had one previous with miscarriage which occurred spontaneously without medication. After the miscarriage, and no D&C performed. Patient unsure. Blood type and Rh. Same has been ordered. Patient has had no vaginal bleeding transvaginal OB ultrasound has been ordered for tomorrow morning. Patient has had previous, cholecystectomy. No adnexal pain. Patient unable: Solid. 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: , Spontaneous : 2 Para: 0 (0010) Other OB/BYN History: x2 - Past Surgical History GI Surgical History: Reports: Cholecystectomy Social & Family History - Family History Family Medical History: Noncontributory - Tobacco Use Smoking Status *Q: Never Smoker - Caffeine Use Caffeine Use: Reports: Soda - Recreational Drug Use Recreational Drug Use: No H&P Review of Systems - Review of Systems: Review Of Systems: See Below General: Reports: no symptoms HEENT: Reports: no symptoms Pulmonary: Reports: No Symptoms Cardiovascular: Reports: no symptoms Gastrointestinal: Reports: Nausea, Vomiting Genitourinary: Reports: no symptoms Musculoskeletal: Reports: no symptoms Skin: Reports: no symptoms Psychiatric: Reports: no symptoms Neurological: Reports: No Symptoms Hematologic/Lymphatic: Reports: no symptoms Immunologic: Reports: no symptoms L&D Exam - Exam Exam: See Below - Vital Signs Vital Signs: Last Vital Signs Temp 98.4 F 06/08/16 11:45 Pulse 92 06/08/16 11:45 Resp 18 06/08/16 11:45 BP 154/107 H 06/08/16 11:45 Pulse Ox 99 06/08/16 11:45 Weight: 200 lb - OB Specific Fundal Height in cm: 7 - Exam General: alert, oriented HEENT: Mucosa moist & pink (Dry, patient appears dehydrated) Neck: supple, trachea midline Lungs: Clear to auscultation, Normal respiratory effort Cardiovascular: regular rate, regular rhythm Abdomen: normal bowel sounds, soft Genitourinary: Normal external exam (Uterus is retroflexed, 7-8 week size) Extremities: normal inspection Skin: warm, dry, intact Psychiatric: alert, normal affect, normal mood - Patient Data Result Diagrams: 06/08/16 12:39 06/08/16 12:39 - Problem List (1) 7 weeks gestation of SNOMED Code(s): 90164262 ICD Code: Z3A.01 - LESS THAN 8 WEEKS GESTATION OF Status: Acute Current Visit: Yes (2) Dehydration SNOMED Code(s): 85579439 ICD Code: E86.0 - DEHYDRATION Status: Acute Current Visit: Yes (3) Hyperemesis arising during SNOMED Code(s): 77912817 ICD Code: O21.0 - MILD HYPEREMESIS GRAVIDARUM Status: Acute Current Visit : Yes (4) Hypokalemia SNOMED Code(s): 53089814 ICD Code: E87.6 - HYPOKALEMIA Status: Acute Current Visit: Yes Problem List Initiated/Reviewed/Updated: No Orders Last 24hrs: Active Orders 24 hr Category Date Time Status Patient Status Manage Transfer [TRANSFER] Routine ADT 06/08/16 17:13 Active Notify Provider Consults [RC] ASDIRECTED Care 06/08/16 17:30 Active Consult to Physician [CONS] Urgent Cons 06/08/16 17:27 Active Medication Orders Sodium Chloride (Normal Saline) 1,000 mls @ 250 mls/hr IV ASDIRECTED KIKI Last Admin: 06/08/16 16:16 Dose: 250 mls/hr Sodium Chloride (Saline Flush) 10 ml FLUSH ASDIRECTED PRN PRN Reason: Keep Vein Open Last Admin: 06/08/16 12:51 Dose: 10 ml Additional CC's: Nola Cardenas Dismiss Monday06/10/16 placed on Reglan 10 mg po q6-8h disp 50 refill 1. On regular diet no vomiting x24 hr. Report given to Dr Chavez whom she will be seeing 07/04/16 Brief History: [facility] LIVE . [facility] . [facility]: [id number] Date of : [birth year]Patient Status: Inpatient. Attending Provider: Santo Paul Number: [id number]. Date: 06/08/16 17:34Initialization Date: 17:34. L&D History of Present Illness. - General. Date of Service: . Admit Problem/Dx: Admission Diagnosis/Problem. Admission Diagnosis/ Problem Vomiting during . Source of Information: Patient. History Limitations: Reports: No limitations. - History of Present Illness. Introduction:: 21-year-old, G2, P0, 010, LMP 04/20/16 with estimated gestational age of 7 weeks one day and ANETA by LMP 01/27/17 . Patient presented to the ER with 2 week history of nausea and vomiting of . Patient had one previous with miscarriage which occurred spontaneously without medication. After the miscarriage, and no D&C performed. Patient unsure. Blood type and Rh. Same has been ordered. Patient has had no vaginal bleeding transvaginal OB ultrasound has been ordered for tomorrow morning. Patient has had previous, cholecystectomy. No adnexal pain. Patient unable: Solid. Neck was hyperemesis, gravidarum with nausea and vomiting, and metabolic embolic. Timing/Duration: Reports: day(s):, gradual onset. Improves with: Reports: None. Worsens with: Reports: None. Associated Symptoms: Reports: N. - Related Data. Allergies/Adverse Reactions: Allergies. Allergy/ AdvReacTypeSeverityReactionStatusDate / Time. No Known QdolbpipkKvltwlaAnbwpzsi31/01/17 16:48. Home Medications: Home Meds. PNV95/ Ferrous Fumarate/FA [ Tablet] 1 each PO DAILY 06/08/16 [History]. Past Medical History. Genitourinary History: Reports: UTI, recurrent. 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 : 2. Para: 0 (0010) . Other OB/BYN History: x2. - Past Surgical History. GI Surgical History: Reports: Cholecystectomy. Social & Family History. - Family History. Family Medical History: Noncontributory. - Tobacco Use. Smoking Status *Q: Never Smoker. - Caffeine Use. Caffeine Use: Reports: Soda. - Recreational Drug Use. Recreational Drug Use: No. H&P Review of Systems. - Review of Systems: Review Of Systems: See Below. General: Reports: no symptoms. HEENT: Reports: no symptoms. Pulmonary: Reports: No Symptoms. Cardiovascular: Reports: no symptoms. Gastrointestinal: Reports: Nausea, Vomiting. Genitourinary: Reports : no symptoms. Musculoskeletal: Reports: no symptoms. Skin: Reports: no symptoms. Psychiatric: Reports: no symptoms. Neurological: Reports: No Symptoms. Hematologic/Lymphatic: Reports: no symptoms. Immunologic: Reports: no symptoms. L&D Exam. - Exam. Exam: See Below. - Vital Signs. Vital Signs : Last Vital Signs. Temp 98.4 F 06/08/16 11:45. Pulse 92 06/08/16 11:45. Resp 18 06/08/16 11:45. BP 154/107 H 06/08/16 11:45. Pulse Ox 99 06/08/16 11 :45. Weight: 200 lb. - OB Specific. Fundal Height in cm: 7. - Exam. General : alert, oriented. HEENT: Mucosa moist & pink (Dry, patient appears dehydrated) . Neck: supple, trachea midline. Lungs: Clear to auscultation, Normal respiratory effort. Cardiovascular: regular rate, regular rhythm. Abdomen: normal bowel sounds, soft. Genitourinary: Normal external exam (Uterus is retroflexed, 7-8 week size). Extremities: normal inspection. Skin: warm, dry, intact. Psychiatric: alert, normal affect, normal mood. - Patient Data. Result Diagrams: 06/08/16 12:39. 06/08/16 12:39. - Problem List. (1) 7 weeks gestation of . SNOMED Code(s): 13108218. ICD Code: Z3A.01 - LESS THAN 8 WEEKS GESTATION OF Status: Acute Current Visit: Yes. (2) Dehydration. SNOMED Code(s): 76686395. ICD Code: E86.0 - DEHYDRATION Status: Acute Current Visit: Yes. (3) Hyperemesis arising during . SNOMED Code(s): 29854657. ICD Code: O21.0 - MILD HYPEREMESIS GRAVIDARUM Status: Acute Current Visit: Yes. (4) Hypokalemia. SNOMED Code(s): 23822038. ICD Code: E87.6 - HYPOKALEMIA Status: Acute Current Visit: Yes. Problem List Initiated/Reviewed/Updated: No. Orders Last 24hrs: Active Orders 24 hr. CategoryDate TimeStatus. Patient Status Manage Transfer [TRANSFER] RoutineADT 06/08/16 17:13Active. Notify Provider Consults [RC] ASDIRECTEDCare 06/08/16 17:30Active. Consult to Physician [CONS] UrgentCons 06/08/16 17: 27Active. Medication Orders. Sodium Chloride (Normal Saline) 1,000 mls @ 250 mls/hr IV ASDIRECTED KIKI. Last Admin: 06/08/16 16:16 Dose: 250 mls/hr. Sodium Chloride (Saline Flush) 10 ml FLUSH ASDIRECTED PRN. PRN Reason: Keep Vein Open. Last Admin: 06/08/16 12:51 Dose: 10 ml. Additional CC's: Nola Cardenas. Dismiss Monday06/10/16 placed on Reglan 10 mg po q6-8h disp 50 refill 1. On regular diet no vomiting x24 hr. Report given to Dr Chavez whom she will be seeing 07/04/16 - Discharge Data Discharge Date: 06/10/16 Discharge Disposition: Home, Self-Care 01 Condition: Good - Discharge Diagnosis/Problem(s) (1) 7 weeks gestation of SNOMED Code(s): 06818017 ICD Code: Z3A.01 - LESS THAN 8 WEEKS GESTATION OF Status: Acute Priority: Medium Current Visit: Yes (2) Dehydration SNOMED Code(s): 46781652 ICD Code: E86.0 - DEHYDRATION Status: Acute Priority: High Current Visit: Yes (3) Hyperemesis arising during SNOMED Code(s): 64084748 ICD Code: O21.0 - MILD HYPEREMESIS GRAVIDARUM Status: Acute Priority: High Current Visit: Yes (4) Hypokalemia SNOMED Code(s): 44913492 ICD Code: E87.6 - HYPOKALEMIA Status: Acute Priority: High Current Visit: Yes - Patient Summary/Data Complications: none Consults: Consultations 06/08/16 17:27 Consult to Physician [CONS] Urgent Hospital Course: uneventful - Patient Instructions Diet: Heart Healthy Diet Driving: Do Not Drive (x48 hrs) Showering/Bathing: May Shower Notify Provider of: Fever, Increased Pain, Swelling and Redness, Drainage, Nausea and/or Vomiting - Discharge Plan Prescriptions/Med Rec: Metoclopramide [Reglan] 10 mg PO Q6H PRN #50 tab PRN Reason: Nausea Home Medications: Home Meds PNV95/Ferrous Fumarate/FA [ Tablet] 1 each PO DAILY 06/08/16 [History] Metoclopramide [Reglan] 10 mg PO Q6H PRN #50 tab 06/10/16 [Rx] Patient Handouts: Eating Plan for Hyperemesis Gravidarum, Hyperemesis Gravidarum, Hypokalemia Referrals: Dotty Chavez MD [Physician] - (has apt 07/04/2016 I called and gave report on patient to Dr Chavez [phone] 07/11/16) - Discharge Summary/Plan Comment DC Time >30 min.: No - Patient Data Vitals - Most Recent: Last Vital Signs Temp 98.6 F 06/10/16 08:41 Pulse 76 06/10/16 08:41 Resp 16 06/10/16 08:41 BP 132/87 06/10/16 08:41 Pulse Ox 97 06/10/16 08:41 Weight - Most Recent: 202 lb 8 oz I&O - Last 24 hours: Intake & Output 06/09/16 06/10/16 06/10/16 22:59 06:59 14:59 Intake Total 2500 1500 Output Total 1000 Balance 1500 1500 Lab Results - Last 24 hrs: Laboratory Results - last 24 hr 06/08/16 06/09/16 06/10/16 Range/Units 19:00 06:15 05:51 WBC 7.40 (3.98-10.04) K/mm3 RBC 4.38 (3.98-5.22) M/mm3 Hgb 12.8 (11.2-15.7) gm/L Hct 36.3 (34.1-44.9) % MCV 82.9 (79.4-94.8) fl MCH 29.2 (25.6-32.2) pg MCHC 35.3 (32.2-35.5) g/dl RDW Std Deviation 38.2 (36.4-46.3) fL Plt Count 177 L (182-369) K/mm3 MPV 12.0 (9.4-12.3) fl Neut % (Auto) 53.0 (34.0-71.1) % Lymph % (Auto) 35.7 (19.3-51.7) % [place] % (Auto) 9.9 (4.7-12.5) % Eos % (Auto) 1.2 (0.7-5.8) Baso % (Auto) 0.1 (0.1-1.2) % Neut # 3.92 (1.56-6.13) K/mm3 Lymph # 2.64 (1.18-3.74) K/mm3 [place] # 0.73 H (0.24-0.36) K/mm3 Eos # 0.09 (0.04-0.36) K/mm3 Baso # 0.01 (0.01-0.08) K/mm3 Sodium (136-145) mEq/L Potassium (3.5-5.1) mEq/L Chloride (98-107) mEq/L Carbon Dioxide (21-32) mEq/L Anion Gap (5-15) BUN (7-18) mg/dL Creatinine (0.55-1.02) mg/dL Est Cr Clr Drug Dosing mL/min Estimated GFR (MDRD) (>60) mL/min BUN/Creatinine Ratio (14-18) Glucose (74-106) mg/dL Calcium (8.5-10.1) mg/dL Magnesium (1.8-2.4) mg/dl Total Bilirubin (0.2-1.0) mg/dL AST (15-37) U/L ALT (14-59) U/L Alkaline Phosphatase (46-116) U/L Total Protein (6.4-8.2) g/dl Albumin (3.4-5.0) g/dl Globulin gm/dL Albumin/Globulin Ratio (1-2) HCG, Quant mIU/mL RPR Non-reac (Non-Reac) H. pylori IgG Antibody Negative (NEGATIVE) 06/10/16 Range/Units 05:51 WBC (3.98-10.04) K/mm3 RBC (3.98-5.22) M/mm3 Hgb (11.2-15.7) gm/L Hct (34.1-44.9) % MCV (79.4-94.8) fl MCH (25.6-32.2) pg MCHC (32.2-35.5) g/dl RDW Std Deviation (36.4-46.3) fL Plt Count (182-369) K/mm3 MPV (9.4-12.3) fl Neut % (Auto) (34.0-71.1) % Lymph % (Auto) (19.3-51.7) % [place] % (Auto) (4.7-12.5) % Eos % (Auto) (0.7-5.8) Baso % (Auto) (0.1-1.2) % Neut # (1.56-6.13) K/mm3 Lymph # (1.18-3.74) K/mm3 [place] # (0.24-0.36) K/mm3 Eos # (0.04-0.36) K/mm3 Baso # (0.01-0.08) K/mm3 Sodium 140 (136-145) mEq/L Potassium 3.5 (3.5-5.1) mEq/L Chloride 106 (98-107) mEq/L Carbon Dioxide 26 (21-32) mEq/L Anion Gap 11.5 (5-15) BUN 5 L (7-18) mg/dL Creatinine 0.6 (0.55-1.02) mg/dL Est Cr Clr Drug Dosing 161.74 mL/min Estimated GFR (MDRD) > 60 (>60) mL/min BUN/Creatinine Ratio 8.3 L (14-18) Glucose 67 L (74-106) mg/dL Calcium 8.5 (8.5-10.1) mg/dL Magnesium 1.5 L (1.8-2.4) mg/dl Total Bilirubin 0.4 (0.2-1.0) mg/dL AST 46 H (15-37) U/L ALT 78 H (14-59) U/L Alkaline Phosphatase 57 (46-116) U/L Total Protein 6.2 L (6.4-8.2) g/dl Albumin 3.2 L (3.4-5.0) g/dl Globulin 3.0 gm/dL Albumin/Globulin Ratio 1.1 (1-2) HCG, Quant 107417.0 mIU/mL RPR (Non-Reac) H. pylori IgG Antibody (NEGATIVE) Med Orders - Current: Current Medications Sodium Chloride (Normal Saline) 1,000 mls @ 250 mls/hr IV ASDIRECTED KIKI Last Admin: 06/08/16 16:16 Dose: 250 mls/hr Dextrose/Lactated Ringer's (Dextrose 5%-Lactated Ringers) 1,000 mls @ 150 mls/ hr IV ASDIRECTED KIKI Last Admin: 06/09/16 22:37 Dose: 150 mls/hr Magnesium Sulfate (Pharmacy To Dose - Magnesium Replacement) 1 dose .XX ASDIRECTED KIKI Metoclopramide HCl (Reglan) 10 mg IVPUSH Q6H PRN PRN Reason: Nausea Last Admin: 06/09/16 17:18 Dose: 10 mg Morphine Sulfate (Morphine) 10 mg IM Q6H PRN PRN Reason: Pain (moderate 4-6) Last Admin: 06/09/16 20:21 Dose: 10 mg Potassium Chloride (Pharmacy To Dose - Potassium Replacement) 1 dose .XX ASDIRECTED KIKI Promethazine HCl (Phenergan) 25 mg IM Q6H PRN PRN Reason: Nausea/Vomiting Last Admin: 06/09/16 20:20 Dose: 25 mg Sodium Chloride (Saline Flush) 10 ml FLUSH ASDIRECTED PRN PRN Reason: Keep Vein Open Last Admin: 06/08/16 12:51 Dose: 10 ml Discontinued Medications Diphenhydramine HCl (Benadryl) 50 mg IVPUSH ONETIME ONE Stop: 06/08/16 12:31 Last Admin: 06/08/16 12:55 Dose: 50 mg Sodium Chloride (Normal Saline) 1,000 mls @ 999 mls/hr IV ONETIME ONE Stop: 06/08/16 13:30 Last Admin: 06/08/16 12:49 Dose: 999 mls/hr Sodium Chloride (Normal Saline) 1,000 mls @ 999 mls/hr IV ONETIME ONE Stop: 06/08/16 14:52 Last Admin: 06/08/16 13:58 Dose: 999 mls/hr Potassium Chloride 10 meq/ (Premix) 100 mls @ 100 mls/hr IV Q1H KIKI Stop: 06/08/16 23:29 Last Admin: 06/08/16 23:41 Dose: 100 mls/hr Magnesium Sulfate (Magnesium Sulfate 2 Gm In Water 50 Ml) 50 mls @ 50 mls/hr IV ONETIME ONE Stop: 06/08/16 20:44 Last Admin: 06/09/16 00:44 Dose: 50 mls/hr Lorazepam (Ativan) 0.5 mg IVPUSH ONETIME ONE Stop: 06/08/16 15:42 Last Admin: 06/08/16 15:59 Dose: 0.5 mg Metoclopramide HCl (Reglan) 7.5 mg IVPUSH ONETIME ONE Stop: 06/08/16 12:32 Last Admin: 06/08/16 12:49 Dose: 7.5 mg Metoclopramide HCl (Reglan) Confirm Administered Dose 10 mg .ROUTE .STK-MED ONE Stop: 06/08/16 17:57 Last Admin: 06/08/16 19:40 Dose: Not Given Ondansetron HCl (Zofran) 8 mg IVPUSH ONETIME ONE Stop: 06/08/16 14:37 Last Admin: 06/08/16 15:54 Dose: 8 mg Potassium Chloride (Klor-Con M20) 40 meq PO ONETIME ONE Stop: 06/08/16 14:04 Last Admin: 06/08/16 14:08 Dose: 40 meq Promethazine HCl (Phenergan) 25 mg IM ONETIME ONE Stop: 06/08/16 14:46 Last Admin: 06/08/16 15:02 Dose: 25 mg *Q Meaningful Use (DIS) - VTE *Q VTE Criteria *Q: - Stroke *Q Stroke Criteria *Q: - AMI *Q AMI Criteria *Q:
[2016-06-13] MEDS ORDERED: Magnesium Sulfate/Water 2 GM in Premix Bag 1 BAG IV ONE (22:04)
== END 2016-06-10 10:30 | disposition home or self-care (01) | DRG 781 ==
LOC: JD.ED 11:29 → JD.OB 16:35
PROVIDERS: ADMIT Obstetrics & Gynecology; ATTEND Obstetrics & Gynecology
DX: O21.1 Hyperemesis gravidarum with metabolic disturbance (principal); Z3A.01 Less than 8 weeks gestation of pregnancy
CPT/HCPCS: 36415; 76817; 76817-26; 80053; 81001; 83690; 83735; 84702; 85025; 86140; 86592; 86677; 86762; 86850; 86900; 86901; 87340; 87449; 96361; 96372; 96374; 96375; 99285; 99285-25; A9270-GY; J1200; J2060; J2270; J2405; J2550; J2765; J3475; J3480; J7040; J7042; J7050

== ENCOUNTER 2016-06-13 15:05 | Inpatient (IN) | payer OTHER ==
[2016-06-13] MEDS ORDERED: Sodium Chloride 0.9% 10 ML Syringe FLUSH PRN (15:44)
[2016-06-13] MEDS ORDERED: Sodium Chloride 0.9% 1,000 ML IV ONE ×2 (15:45→15:50)
[2016-06-13] MEDS ORDERED: Metoclopramide 10 MG/2 ML SDV IVPUSH ONE (15:45)
[2016-06-13] MEDS ORDERED: diphenhydrAMINE 50 MG/ML SDV IVPUSH ONE (15:46)
--- NOTE | 2016-06-13 16:21 | EDM.PDOC ---
ED HPI - General Chief Complaint: Gastrointestinal Problem Stated Complaint: 7 WEEKS PREG, VOMITING AND ABDOMINAL PAIN Time Seen by Provider: 06/13/16 15:09 Source of Information: Reports: Patient, Significant Other History Limitations: Reports: No limitations - History of Present Illness INITIAL COMMENTS - FREE TEXT/NARRATIVE: Patient presents for evaluation and treatment of nausea and vomiting. Patient is approximately 7 weeks . She is a . Her last ended in a miscarriage at 7 weeks. She states that she has been struggling with nausea and vomiting during this . She was admitted to our hospital on and discharged on Monday. After leaving the hospital she states that Monday was okay. She reports some nausea and vomiting on Monday. She reports that today has significantly been worse. She states that she has vomited about 30 times today. She states she's had about 5 episodes of diarrhea. She also reports chills and abdominal pain in the epigastric area. She denies any fevers , vaginal bleeding, pelvic pain or cramping. Patient states that she has not been able to keep anything down today. Her WIRER provider is Dr. Chavez, However, she has not seen her for this . Dr. Paul managed her care in the hospital earlier. - Related Data Allergies/ADRs: Allergies Allergy/AdvReac Type Severity Reaction Status Date / Time No Known Allergies Allergy Verified 06/13/16 15:23 Home Meds: Home Meds PNV95/Ferrous Fumarate/FA [ Tablet] 1 each PO DAILY 06/08/16 [History] Metoclopramide [Reglan] 10 mg PO Q6HR PRN 06/13/16 [History] Past Medical History Genitourinary History: Reports: UTI, recurrent WIRER History: Reports: , Spontaneous Other OB/BYN History: x2 - Past Surgical History GI Surgical History: Reports: Cholecystectomy Social & Family History - Family History Family Medical History: Noncontributory - Tobacco Use Smoking Status *Q: Never Smoker Second Hand Smoke Exposure: No - Caffeine Use Caffeine Use: Reports: None Other Caffeine Use: one daily - Recreational Drug Use Recreational Drug Use: No ED ROS GENERAL - Review of Systems Review Of Systems: See Below Constitutional: Reports: malaise. Denies: fever GI/Abdominal: Reports: Abdominal pain, Nausea, Vomiting : Reports: other (denies any vaginal bleeding ). Denies: dysuria, hematuria, pain ED EXAM - Physical Exam Exam: See Below Exam Limited By: No limitations General Appearance: alert, WD/WN, mild distress, obese Respiratory/Chest: no respiratory distress, lungs clear, normal breath sounds Cardiovascular: normal peripheral pulses, regular rate, rhythm, no murmur GI/Abdominal: normal bowel sounds, tender (generalized) Neurological: alert, oriented, normal cognition Psychiatric: normal affect, normal mood Skin Exam: Diaphoretic, Pallor Course - Vital Signs Last Recorded V/S: Last Vital Signs Temp 37.1 C 06/14/16 14:19 Pulse 77 06/14/16 14:19 Resp 14 06/14/16 14:19 BP 100/47 L 06/14/16 14:19 Pulse Ox 98 06/14/16 14:19 - Orders/Labs/Meds Orders: Active Orders 24 hr Category Date Time Status Dextrose 5%-Lactated Ringers 1,000 ml Med 06/13/16 19:30 Active IV ASDIRECTED Sodium Chloride 0.9% [Saline Flush] Med 06/13/16 15:44 Active 10 ml FLUSH ASDIRECTED PRN Peripheral IV Insertion Adult [OM.PC] Routine Oth 06/13/16 15:44 Ordered Medication Orders Dextrose/Lactated Ringer's (Dextrose 5%-Lactated Ringers) 1,000 mls @ 150 mls/ hr IV ASDIRECTED KIKI Last Admin: 06/14/16 10:19 Dose: 150 mls/hr Infusion: 06/14/16 10:19 Dose: 150 mls/hr Admin: 06/14/16 04:22 Dose: 150 mls/hr Infusion: 06/14/16 02:20 Dose: 150 mls/hr Admin: 06/13/16 19:39 Dose: 150 mls/hr Magnesium Sulfate (Pharmacy To Dose - Magnesium Replacement) 0 dose .XX ASDIRECTED PRN PRN Reason: RX DOSE Metoclopramide HCl (Reglan) 10 mg IVPUSH Q6H PRN PRN Reason: Nausea Morphine Sulfate (Morphine) 10 mg IM Q6H PRN PRN Reason: Nausea Last Admin: 06/14/16 04:06 Dose: 10 mg Admin: 06/13/16 22:14 Dose: 10 mg Potassium Chloride (Pharmacy To Dose - Potassium Replacement) 0 dose .XX ASDIRECTED PRN PRN Reason: RX DOSE Promethazine HCl (Phenergan) 25 mg IM Q6H PRN PRN Reason: Nausea Last Admin: 06/14/16 11:39 Dose: 25 mg Admin: 06/14/16 04:06 Dose: 25 mg Admin: 06/13/16 22:13 Dose: 25 mg Sodium Chloride (Saline Flush) 10 ml FLUSH ASDIRECTED PRN PRN Reason: Keep Vein Open Last Admin: 06/13/16 15:55 Dose: 10 ml Labs: Laboratory Tests 06/13/16 06/13/16 06/13/16 Range/Units 15:37 15:37 15:37 WBC 11.01 H (3.98-10.04) K/mm3 RBC 5.54 H (3.98-5.22) M/mm3 Hgb 16.5 H (11.2-15.7) gm/L Hct 43.4 (34.1-44.9) % MCV 78.3 L (79.4-94.8) fl MCH 29.8 (25.6-32.2) pg MCHC 38.0 H (32.2-35.5) g/dl RDW Std Deviation 36.1 L (36.4-46.3) fL Plt Count 228 (182-369) K/mm3 MPV 12.0 (9.4-12.3) fl Neut % (Auto) 88.8 H (34.0-71.1) % Lymph % (Auto) 6.9 L (19.3-51.7) % [place] % (Auto) 4.0 L (4.7-12.5) % Eos % (Auto) 0 L (0.7-5.8) Baso % (Auto) 0.1 (0.1-1.2) % Neut # 9.78 H (1.56-6.13) K/mm3 Lymph # 0.76 L (1.18-3.74) K/mm3 [place] # 0.44 H (0.24-0.36) K/mm3 Eos # 0.00 L (0.04-0.36) K/mm3 Baso # 0.01 (0.01-0.08) K/mm3 Manual Slide Review Abnormal smear Sodium 135 L (136-145) mEq/L Potassium 3.7 (3.5-5.1) mEq/L Chloride 100 (98-107) mEq/L Carbon Dioxide 19 L (21-32) mEq/L Anion Gap 19.7 H (5-15) BUN 11 (7-18) mg/dL Creatinine 0.8 (0.55-1.02) mg/dL Est Cr Clr Drug Dosing 121.30 mL/min Estimated GFR (MDRD) > 60 (>60) mL/min BUN/Creatinine Ratio 13.8 L (14-18) Glucose 135 H (74-106) mg/dL Calcium 9.9 (8.5-10.1) mg/dL Magnesium 1.7 L (1.8-2.4) mg/dl Total Bilirubin 0.8 (0.2-1.0) mg/dL AST 22 (15-37) U/L ALT 69 H (14-59) U/L Alkaline Phosphatase 84 (46-116) U/L C-Reactive Protein (<1.0) mg/dL Total Protein 8.4 H (6.4-8.2) g/dl Albumin 4.3 (3.4-5.0) g/dl Globulin 4.1 gm/dL Albumin/Globulin Ratio 1.1 (1-2) HCG, Quant 328001.0 mIU/mL Urine Color (Yellow) Urine Appearance (Clear) Urine pH (5.0-8.0) Ur Specific [place] (1.005-1.030) Urine Protein (Negative) Urine Glucose (UA) (Negative) Urine Ketones (Negative) Urine Occult Blood (Negative) Urine Nitrite (Negative) Urine Bilirubin (Negative) Urine Urobilinogen (0.2-1.0) Ur Leukocyte Esterase (Negative) Urine RBC (0-5) /hpf Urine WBC (0-5) /hpf Ur Squamous Epith Cells (0-5) /hpf Urine Bacteria (FEW) /hpf Urine Mucus (FEW) /hpf 06/13/16 06/13/16 Range/Units 15:37 18:44 WBC (3.98-10.04) K/mm3 RBC (3.98-5.22) M/mm3 Hgb (11.2-15.7) gm/L Hct (34.1-44.9) % MCV (79.4-94.8) fl MCH (25.6-32.2) pg MCHC (32.2-35.5) g/dl RDW Std Deviation (36.4-46.3) fL Plt Count (182-369) K/mm3 MPV (9.4-12.3) fl Neut % (Auto) (34.0-71.1) % Lymph % (Auto) (19.3-51.7) % [place] % (Auto) (4.7-12.5) % Eos % (Auto) (0.7-5.8) Baso % (Auto) (0.1-1.2) % Neut # (1.56-6.13) K/mm3 Lymph # (1.18-3.74) K/mm3 [place] # (0.24-0.36) K/mm3 Eos # (0.04-0.36) K/mm3 Baso # (0.01-0.08) K/mm3 Manual Slide Review Sodium (136-145) mEq/L Potassium (3.5-5.1) mEq/L Chloride (98-107) mEq/L Carbon Dioxide (21-32) mEq/L Anion Gap (5-15) BUN (7-18) mg/dL Creatinine (0.55-1.02) mg/dL Est Cr Clr Drug Dosing mL/min Estimated GFR (MDRD) (>60) mL/min BUN/Creatinine Ratio (14-18) Glucose (74-106) mg/dL Calcium (8.5-10.1) mg/dL Magnesium (1.8-2.4) mg/dl Total Bilirubin (0.2-1.0) mg/dL AST (15-37) U/L ALT (14-59) U/L Alkaline Phosphatase (46-116) U/L C-Reactive Protein 1.5 H* (<1.0) mg/dL Total Protein (6.4-8.2) g/dl Albumin (3.4-5.0) g/dl Globulin gm/dL Albumin/Globulin Ratio (1-2) HCG, Quant mIU/mL Urine Color Yellow (Yellow) Urine Appearance Slt cloudy H (Clear) Urine pH 5.5 (5.0-8.0) Ur Specific [place] > or = 1.030 (1.005-1.030) Urine Protein 1+ H (Negative) Urine Glucose (UA) Negative (Negative) Urine Ketones 3+ H (Negative) Urine Occult Blood Negative (Negative) Urine Nitrite Negative (Negative) Urine Bilirubin Negative (Negative) Urine Urobilinogen 0.2 (0.2-1.0) Ur Leukocyte Esterase Negative (Negative) Urine RBC Not seen (0-5) /hpf Urine WBC 0-5 (0-5) /hpf Ur Squamous Epith Cells 5-10 H (0-5) /hpf Urine Bacteria Rare (FEW) /hpf Urine Mucus Many H (FEW) /hpf Meds: Medications Generic Name Dose Route Start Last Admin Trade Name Freq PRN Reason Stop Dose Admin Dextrose/Lactated Ringer's 1,000 mls @ 150 mls/hr 06/13/16 19:30 06/14/16 10: 19 Dextrose 5%-Lactated Ringers IV 150 mls/hr ASDIRECTED KIKI Administration Magnesium Sulfate 0 dose 06/13/16 22:00 Pharmacy To Dose - Magnesium Replacement .XX ASDIRECTED PRN RX DOSE Metoclopramide HCl 10 mg 06/13/16 22:00 Reglan IVPUSH Q6H PRN Nausea Morphine Sulfate 10 mg 06/13/16 21:49 06/14/16 04:06 Morphine IM 10 mg Q6H PRN Administration Nausea Potassium Chloride 0 dose 06/13/16 22:00 Pharmacy To Dose - Potassium Replacement .XX ASDIRECTED PRN RX DOSE Promethazine HCl 25 mg 06/13/16 21:48 06/14/16 11:39 Phenergan IM 25 mg Q6H PRN Administration Nausea Sodium Chloride 10 ml 06/13/16 15:44 06/13/16 15:55 Saline Flush FLUSH 10 ml ASDIRECTED PRN Administration Keep Vein Open Discontinued Medications Generic Name Dose Route Start Last Admin Trade Name Freq PRN Reason Stop Dose Admin Diphenhydramine HCl 50 mg 06/13/16 15:46 06/13/16 15:56 Benadryl IVPUSH 06/13/16 15:47 50 mg ONETIME ONE Administration Sodium Chloride 1,000 mls @ 999 mls/hr 06/13/16 15:45 06/13/16 15:52 Normal Saline IV 06/13/16 16:45 999 mls/hr ONETIME ONE Administration Sodium Chloride 1,000 mls @ 999 mls/hr 06/13/16 15:50 06/13/16 16:55 Normal Saline IV 06/13/16 16:50 999 mls/hr ONETIME ONE Administration Magnesium Sulfate 2 gm/ Premix 50 mls @ 25 mls/hr 06/13/16 17:03 06/13/16 17: 14 IV 06/13/16 19:02 25 mls/hr ONETIME ONE Administration Magnesium Sulfate 2 gm/ Premix 50 mls @ 50 mls/hr 06/13/16 22:30 06/13/16 22: 17 IV 06/13/16 23:29 50 mls/hr ONETIME ONE Administration Potassium Chloride 10 meq/ 100 mls @ 100 mls/hr 06/13/16 23:30 06/14/16 02:27 Premix IV 06/14/16 02:29 100 mls/hr Q1H KIKI Administration Metoclopramide HCl 10 mg 06/13/16 15:45 06/13/16 15:52 Reglan IVPUSH 06/13/16 15:46 10 mg ONETIME ONE Administration Morphine Sulfate 5 mg 06/13/16 16:50 06/13/16 16:56 Morphine IVPUSH 06/13/16 16:51 5 mg ONETIME ONE Administration Morphine Sulfate 2 mg 06/13/16 19:08 06/13/16 19:22 Morphine IVPUSH 06/13/16 19:09 2 mg ONETIME ONE Administration Ondansetron HCl 4 mg 06/13/16 16:41 06/13/16 16:46 Zofran IVPUSH 06/13/16 16:42 4 mg ONETIME ONE Administration Ondansetron HCl 4 mg 06/13/16 18:53 06/13/16 18:58 Zofran IVPUSH 06/13/16 18:54 4 mg ONETIME ONE Administration - Re-Assessments/Exams Free Text/Narrative Re-Assessment/Exam: 06/13/16 16:[address] Paul. Recommended giving the second liter NS and magnesium PO. If improved will plan to discharge home. If not, may require admission. Lab studies have returned. WBC is 11.01, hemoglobin is 16.5 and platelets are 228. Sodium is 135, potassium is 3.7 chloride is 100. Anion gap is 19.7. Magnesium is 1.7. CRP is 1.5. HCG is 175109. UA with 3+ ketones 1+ protein. Negative for nitrates and leukocytes. 06/13/16 20:03 The patient was given 2 1 L fluid boluses, 2 doses 4 mg each of Zofran, one 10 mg doses Reglan, 5 mg IV morphine and 2 mg IV morphine. She was unwilling to take a magnesium by mouth, thus I give it IV. She required the morphine for the abdominal, epigastric discomfort. At this time she does not feel she can safely go home. She does live in [place]. She continues to have some retching. I discussed the case again with Dr. Paul. He will come and see the patient. Plan is to admit for hyperemesis. He asked that I start her on D5-LR. Departure - Departure Time of Disposition: 20:00 Disposition: Admitted As Inpatient 67 Condition: poor Clinical Impression: Hypomagnesemia, Hyperemesis arising during - My Orders Last 24 Hours: My Active Orders 06/13/16 15:44 Sodium Chloride 0.9% [Saline Flush] 10 ml FLUSH ASDIRECTED PRN Peripheral IV Insertion Adult [OM.PC] Routine 06/13/16 19:30 Dextrose 5%-Lactated Ringers 1,000 ml IV ASDIRECTED - Assessment/Plan Last 24 Hours: My Active Orders 06/13/16 15:44 Sodium Chloride 0.9% [Saline Flush] 10 ml FLUSH ASDIRECTED PRN Peripheral IV Insertion Adult [OM.PC] Routine 06/13/16 19:30 Dextrose 5%-Lactated Ringers 1,000 ml IV ASDIRECTED
[2016-06-13] MEDS ORDERED: Ondansetron 4 MG/2 ML SDV IVPUSH ONE ×2 (16:41→18:53)
[2016-06-13] MEDS ORDERED: Morphine 10 MG/ML Syringe IVPUSH ONE (16:50)
[2016-06-13] MEDS ORDERED: Magnesium Sulfate/Water 2 GM in Premix Bag 1 BAG IV ONE ×2 (17:03→22:30)
[2016-06-13] MEDS ORDERED: Morphine 2 MG/ML Syringe IVPUSH ONE (19:08)
[2016-06-13] MEDS: Dextrose 5%-Lactated Ringers 1,000 ML IV SCH (19:39)
--- NOTE | 2016-06-13 20:20 | PCM.HP ---
H&P History of Present Illness - General Date of Service: 06/13/16 Admit Problem/Dx: Admission Diagnosis/Problem Admission Diagnosis/Problem complications Source of Information: Patient History Limitations: Reports: No limitations - History of Present Illness Initial Comments - Free Text/Narative: 21 Y/O LMP 04/20/2016 ANETA 01/27/2017 EGA 7w6d. Admitted last week 06/08- for Nausea and vomiting with dehydration and low potassium and magnesium. Dismissed on medication for nausea presentied to ER with recurrence of N&V and dehydration and low magnesium. Given two liters of IV fluids and IV magnesium and Reglan and Zofran and continues to dry heave. To see [facility] Dr Chavez . Admit for rehydration and consulsted Dr Cardenas to co-manage (hospitalist) CBC, CMP, Magnesium daily. Has had gallbladder removed. Onset of Symptoms: Reports: gradual Symptom Onset Date: 06/12/16 Duration of Symptoms: Reports: Day(s): Location: Reports: abdomen Improves with: Reports: None Worsens with: Reports: None Associated Symptoms: Reports: no other symptoms Upper Abdomen Pain Score (Numeric/FACES): 7 - Related Data Allergies/Adverse Reactions: Allergies Allergy/AdvReac Type Severity Reaction Status Date / Time No Known Allergies Allergy Verified 06/13/16 15:23 Home Medications: Home Meds PNV95/Ferrous Fumarate/FA [ Tablet] 1 each PO DAILY 06/08/16 [History] Metoclopramide [Reglan] 10 mg PO Q6HR PRN 06/13/16 [History] Past Medical History Genitourinary History: Reports: UTI, recurrent [employer] History: Reports: , Spontaneous Other OB/BYN History: x2 - Past Surgical History GI Surgical History: Reports: Cholecystectomy Social & Family History - Family History Family Medical History: Noncontributory - Tobacco Use Smoking Status *Q: Never Smoker Second Hand Smoke Exposure: No - Caffeine Use Caffeine Use: Reports: None Other Caffeine Use: one daily - Recreational Drug Use Recreational Drug Use: No H&P Review of Systems - Review of Systems: Review Of Systems: See Below General: Reports: weakness, fatigue, decreased appetite HEENT: Reports: no symptoms Pulmonary: Reports: No Symptoms Cardiovascular: Reports: no symptoms Gastrointestinal: Reports: No symptoms Genitourinary: Reports: no symptoms Musculoskeletal: Reports: no symptoms Skin: Reports: other (dry mucous membranes and decreased skin turgor) Psychiatric: Reports: no symptoms Neurological: Reports: No Symptoms Hematologic/Lymphatic: Reports: no symptoms Immunologic: Reports: no symptoms Exam - Exam Exam: See Below - Vital Signs Vital Signs: Last Vital Signs Temp 97.1 F 06/13/16 15:26 Pulse 103 H 06/13/16 15:26 Resp 26 H 06/13/16 15:26 BP 146/100 H 06/13/16 15:26 Pulse Ox 100 06/13/16 15:26 Weight: 200 lb - Exam General: alert, oriented, 4 HEENT: Mucosa moist & pink (dry mucous membranes), PERRLA Neck: supple, trachea midline, 2 Lungs: Clear to auscultation, Normal respiratory effort Cardiovascular: regular rate, regular rhythm Abdomen: normal bowel sounds, soft Back Exam: normal inspection, full range of motion, NT Extremities: 3, normal inspection, 10 Skin: warm, dry, intact Neurological: cranial nerves intact, reflexes equal bilateral Neuro Extensive - Mental Status: alert, oriented x3, normal mood/affect, normal cognition Psychiatric: alert, normal affect, normal mood - Patient Data Lab Results last 24 hrs: Laboratory Results - last 24 hr 06/13/16 06/13/16 06/13/16 Range/Units 15:37 15:37 15:37 WBC 11.01 H (3.98-10.04) K/mm3 RBC 5.54 H (3.98-5.22) M/mm3 Hgb 16.5 H (11.2-15.7) gm/L Hct 43.4 (34.1-44.9) % MCV 78.3 L (79.4-94.8) fl MCH 29.8 (25.6-32.2) pg MCHC 38.0 H (32.2-35.5) g/dl RDW Std Deviation 36.1 L (36.4-46.3) fL Plt Count 228 (182-369) K/mm3 MPV 12.0 (9.4-12.3) fl Neut % (Auto) 88.8 H (34.0-71.1) % Lymph % (Auto) 6.9 L (19.3-51.7) % [place] % (Auto) 4.0 L (4.7-12.5) % Eos % (Auto) 0 L (0.7-5.8) Baso % (Auto) 0.1 (0.1-1.2) % Neut # 9.78 H (1.56-6.13) K/mm3 Lymph # 0.76 L (1.18-3.74) K/mm3 [place] # 0.44 H (0.24-0.36) K/mm3 Eos # 0.00 L (0.04-0.36) K/mm3 Baso # 0.01 (0.01-0.08) K/mm3 Manual Slide Review Abnormal smear Sodium 135 L (136-145) mEq/L Potassium 3.7 (3.5-5.1) mEq/L Chloride 100 (98-107) mEq/L Carbon Dioxide 19 L (21-32) mEq/L Anion Gap 19.7 H (5-15) BUN 11 (7-18) mg/dL Creatinine 0.8 (0.55-1.02) mg/dL Est Cr Clr Drug Dosing 121.30 mL/min Estimated GFR (MDRD) > 60 (>60) mL/min BUN/Creatinine Ratio 13.8 L (14-18) Glucose 135 H (74-106) mg/dL Calcium 9.9 (8.5-10.1) mg/dL Magnesium 1.7 L (1.8-2.4) mg/dl Total Bilirubin 0.8 (0.2-1.0) mg/dL AST 22 (15-37) U/L ALT 69 H (14-59) U/L Alkaline Phosphatase 84 (46-116) U/L C-Reactive Protein (<1.0) mg/dL Total Protein 8.4 H (6.4-8.2) g/dl Albumin 4.3 (3.4-5.0) g/dl Globulin 4.1 gm/dL Albumin/Globulin Ratio 1.1 (1-2) HCG, Quant 343178.0 mIU/mL Urine Color (Yellow) Urine Appearance (Clear) Urine pH (5.0-8.0) Ur Specific [place] (1.005-1.030) Urine Protein (Negative) Urine Glucose (UA) (Negative) Urine Ketones (Negative) Urine Occult Blood (Negative) Urine Nitrite (Negative) Urine Bilirubin (Negative) Urine Urobilinogen (0.2-1.0) Ur Leukocyte Esterase (Negative) Urine RBC (0-5) /hpf Urine WBC (0-5) /hpf Ur Squamous Epith Cells (0-5) /hpf Urine Bacteria (FEW) /hpf Urine Mucus (FEW) /hpf 06/13/16 06/13/16 Range/Units 15:37 18:44 WBC (3.98-10.04) K/mm3 RBC (3.98-5.22) M/mm3 Hgb (11.2-15.7) gm/L Hct (34.1-44.9) % MCV (79.4-94.8) fl MCH (25.6-32.2) pg MCHC (32.2-35.5) g/dl RDW Std Deviation (36.4-46.3) fL Plt Count (182-369) K/mm3 MPV (9.4-12.3) fl Neut % (Auto) (34.0-71.1) % Lymph % (Auto) (19.3-51.7) % [place] % (Auto) (4.7-12.5) % Eos % (Auto) (0.7-5.8) Baso % (Auto) (0.1-1.2) % Neut # (1.56-6.13) K/mm3 Lymph # (1.18-3.74) K/mm3 [place] # (0.24-0.36) K/mm3 Eos # (0.04-0.36) K/mm3 Baso # (0.01-0.08) K/mm3 Manual Slide Review Sodium (136-145) mEq/L Potassium (3.5-5.1) mEq/L Chloride (98-107) mEq/L Carbon Dioxide (21-32) mEq/L Anion Gap (5-15) BUN (7-18) mg/dL Creatinine (0.55-1.02) mg/dL Est Cr Clr Drug Dosing mL/min Estimated GFR (MDRD) (>60) mL/min BUN/Creatinine Ratio (14-18) Glucose (74-106) mg/dL Calcium (8.5-10.1) mg/dL Magnesium (1.8-2.4) mg/dl Total Bilirubin (0.2-1.0) mg/dL AST (15-37) U/L ALT (14-59) U/L Alkaline Phosphatase (46-116) U/L C-Reactive Protein 1.5 H* (<1.0) mg/dL Total Protein (6.4-8.2) g/dl Albumin (3.4-5.0) g/dl Globulin gm/dL Albumin/Globulin Ratio (1-2) HCG, Quant mIU/mL Urine Color Yellow (Yellow) Urine Appearance Slt cloudy H (Clear) Urine pH 5.5 (5.0-8.0) Ur Specific [place] > or = 1.030 (1.005-1.030) Urine Protein 1+ H (Negative) Urine Glucose (UA) Negative (Negative) Urine Ketones 3+ H (Negative) Urine Occult Blood Negative (Negative) Urine Nitrite Negative (Negative) Urine Bilirubin Negative (Negative) Urine Urobilinogen 0.2 (0.2-1.0) Ur Leukocyte Esterase Negative (Negative) Urine RBC Not seen (0-5) /hpf Urine WBC 0-5 (0-5) /hpf Ur Squamous Epith Cells 5-10 H (0-5) /hpf Urine Bacteria Rare (FEW) /hpf Urine Mucus Many H (FEW) /hpf Result Diagrams: 06/13/16 15:37 06/13/16 15:37 *Q Meaningful Use (ADM) - VTE *Q VTE Criteria *Q: - Stroke *Q Stroke Criteria *Q: - AMI *Q AMI Criteria *Q: - Problem List (1) Hypomagnesemia SNOMED Code(s): 399761576 ICD Code: E83.42 - HYPOMAGNESEMIA Status: Acute Current Visit: Yes (2) 7 weeks gestation of SNOMED Code(s): 77142547 ICD Code: Z3A.01 - LESS THAN 8 WEEKS GESTATION OF Status: Acute Priority: Medium Current Visit: No (3) Dehydration SNOMED Code(s): 72011086 ICD Code: E86.0 - DEHYDRATION Status: Acute Priority: High Current Visit: No (4) Hyperemesis arising during SNOMED Code(s): 09361846 ICD Code: O21.0 - MILD HYPEREMESIS GRAVIDARUM Status: Acute Priority: High Current Visit: No Problem List Initiated/Reviewed/Updated: No Orders Last 24hrs: Active Orders 24 hr Category Date Time Status Patient Status Manage Transfer [TRANSFER] Routine ADT 06/13/16 20:09 Ordered Peripheral IV Care [RC] . DIRECTED Care 06/13/16 15:44 Active NPO [Nothing Per Oral Diet] [DIET] Diet 06/13/16 Breakfast Active Dextrose 5%-Lactated Ringers 1,000 ml Med 06/13/16 19:30 Active IV ASDIRECTED Sodium Chloride 0.9% [Saline Flush] Med 06/13/16 15:44 Active 10 ml FLUSH ASDIRECTED PRN Peripheral IV Insertion Adult [OM.PC] Routine Oth 06/13/16 15:44 Ordered Resuscitation Status Stat Resus Stat 06/13/16 20:11 Ordered Medication Orders Dextrose/Lactated Ringer's (Dextrose 5%-Lactated Ringers) 1,000 mls @ 150 mls/ hr IV ASDIRECTED KIKI Last Admin: 06/13/16 19:39 Dose: 150 mls/hr Sodium Chloride (Saline Flush) 10 ml FLUSH ASDIRECTED PRN PRN Reason: Keep Vein Open Last Admin: 06/13/16 15:55 Dose: 10 ml Assessment/Plan Comment:: Admit for rehydration IV fluids, gradually increase diet.
--- NOTE | 2016-06-13 21:55 | PCM.CONS ---
H&P History of Present Illness - General Date of Service: 06/13/16 Admit Problem/Dx: Admission Diagnosis/Problem Admission Diagnosis/Problem complications Source of Information: Patient, Family, Old records, Provider, RN notes reviewed History Limitations: Reports: No limitations - History of Present Illness Initial Comments - Free Text/Narative: This is a pleasant 21 yo, G2, P0, 010, LMP 04/20/16 with gestational age of 7 weeks who comes in with a 2 week hx/o nausea and vomiting. She was recently discharged on the for similar presentation. At the time of my examination, patient is actively vomiting. She denies any other acute issues. Her initial work in ED shows an unremarkable CBC. Her chemistry is significant for BUN 5, BS 67, Mg 1.7, AST 46, ALT 78, Total Protein 6.2 and Albumin 3.2. Hospitalist Team was consulted for medical management related to e-lytes abnormality. 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 Denies: fever, chills HEENT: Reports: no symptoms Pulmonary: Denies: Shortness of Breath Cardiovascular: Denies: chest pain Gastrointestinal: Reports: Nausea, Vomiting. Denies: Abdominal pain Genitourinary: Reports: no symptoms Musculoskeletal: Reports: no symptoms Skin: Denies: pruritis, rash, change in hair/nails Psychiatric: Denies: depression, anxiety, hallucinations Neurological: Denies: Confusion Hematologic/Lymphatic: Reports: no symptoms Immunologic: Reports: no symptoms Exam - Exam Exam: See Below - Vital Signs Vital Signs: Last Vital Signs Temp 36.2 C 06/13/16 15:26 Pulse 103 H 06/13/16 15:26 Resp 26 H 06/13/16 15:26 BP 146/100 H 06/13/16 15:26 Pulse Ox 100 06/13/16 15:26 Weight: 90.718 kg - Exam General: alert, oriented, cooperative, mild distress HEENT: Conjunctiva clear, EACs clear, EOMI, Hearing intact, Nares patent, Normal nasal septum, Posterior pharynx clear, PERRLA. No: Mucosa moist & pink Neck: supple, trachea midline Lungs: Clear to auscultation, Normal respiratory effort Cardiovascular: regular rate, regular rhythm Abdomen: normal bowel sounds, soft. No: organomegaly (Female) Exam: Deferred Rectal (Female) Exam: Normal Exam, Deferred Back Exam: normal inspection, decreased range of motion Extremities: normal inspection, normal pulses Peripheral Pulses: 3+: posterior tibial (L), posterior tibial (R), dorsalis pedis (L), dorsalis pedis (R) Skin: warm, dry, intact, other (decreased skin turgor) Neuro Extensive - Mental Status: oriented x3, normal cognition, memory intact Neuro Extensive - Motor, Sensory, Reflexes: CN II-XII intact, normal gait Psychiatric: alert, normal affect, normal mood - Patient Data Result Diagrams: 06/13/16 15:37 06/13/16 15:37 Consult PN Assessment/Plan POD#: 0 Procedures: Procedures EMERGENCY DEPT VISIT (03/27/16) THER/PROPH/DIAG INJ SC/IM (03/27/16) Problem List Initiated/Reviewed/Updated: Yes Plan: Assessment: 7th Week Dehydration Hyperemesis Gravidum Hypomagnesemia Plan: Patient is fairly stable Routine AM Labs Continue IV fluids Magnesium 2 gm IV x1 now KCL 10 mEQ 1 hr x 3 doses only Continue supportive care Thank you for he opportunity to participate in the management of this patient. We will follow her along with you. Requesting Provider: Dr. Paul Date Consult Requested: 06/13/16 Reason for Consult: E-Lytes Management Patient History Reviewed: Yes Admission H&P Reviewed: Yes Consult Result/Summary:: Hypomagnesemia to replete and monitor
[2016-06-13] MEDS: Promethazine 25 MG/ML SDV IM PRN (22:13)
[2016-06-13] MEDS: Morphine 10 MG/ML Syringe IM PRN (22:14)
[2016-06-13] MEDS: Potassium Chloride 10 MEQ in Premix Bag 1 BAG IV SCH (23:33)
[2016-06-14] MEDS: Potassium Chloride 10 MEQ in Premix Bag 1 BAG IV SCH ×2 (01:04→02:27)
[2016-06-14] MEDS: Promethazine 25 MG/ML SDV IM PRN ×2 (04:06→11:39)
[2016-06-14] MEDS: Morphine 10 MG/ML Syringe IM PRN (04:06)
[2016-06-14] MEDS: Dextrose 5%-Lactated Ringers 1,000 ML IV SCH ×3 (04:22→22:50)
--- NOTE | 2016-06-14 06:59 | PCM.SN ---
- Free Text/Narrative Note: Patient awakened on rounds. C/O continuing nausea. NPO except ice chips for now. Re-evaluate later.
--- NOTE | 2016-06-14 08:44 | PCM.CONSN ---
- General Info Date of Service: 06/14/16 Admission Dx/Problem (Free Text): Admission Diagnosis/Problem Admission Diagnosis/Problem complications Patient seen this morning; sleeping/resting comfortably. Still nauseous but less wretching. VSS. Functional Status: Reports: pain controlled, ambulating, urinating - Review of Systems General: Reports: Fatigue HEENT: Reports: no symptoms Pulmonary: Reports: no symptoms Cardiovascular: Reports: No Symptoms Gastrointestinal: Reports: Decreased appetite, Nausea. Denies: Abdominal pain, Constipation, Diarrhea Genitourinary: Reports: no symptoms Musculoskeletal: Reports: no symptoms Neurological: Reports: No Symptoms Psychiatric: Reports: no symptoms - Patient Data Vitals - most recent: Last Vital Signs Temp 98.4 F 06/14/16 04:20 Pulse 99 06/14/16 04:15 Resp 18 06/14/16 04:15 BP 121/61 06/14/16 04:15 Pulse Ox 100 06/14/16 04:15 Weight - most recent: 200 lb I&O - last 24 hours: Intake & Output 06/13/16 06/14/16 06/14/16 22:59 06:59 14:59 Intake Total 2350 Balance 2350 Lab Results last 24 hrs: Laboratory Results - last 24 hr 06/14/16 06/14/16 Range/Units 05:07 05:17 WBC 8.25 (3.98-10.04) K/mm3 RBC 4.44 (3.98-5.22) M/mm3 Hgb 12.9 (11.2-15.7) gm/L Hct 35.6 (34.1-44.9) % MCV 80.2 (79.4-94.8) fl MCH 29.1 (25.6-32.2) pg MCHC 36.2 H (32.2-35.5) g/dl RDW Std Deviation 35.7 L (36.4-46.3) fL Plt Count 188 (182-369) K/mm3 MPV 11.8 (9.4-12.3) fl Neut % (Auto) 69.9 (34.0-71.1) % Lymph % (Auto) 20.0 (19.3-51.7) % [place] % (Auto) 9.8 (4.7-12.5) % Eos % (Auto) 0.2 L (0.7-5.8) Baso % (Auto) 0.0 L (0.1-1.2) % Neut # 5.76 (1.56-6.13) K/mm3 Lymph # 1.65 (1.18-3.74) K/mm3 [place] # 0.81 H (0.24-0.36) K/mm3 Eos # 0.02 L (0.04-0.36) K/mm3 Baso # 0.00 L (0.01-0.08) K/mm3 Sodium 137 (136-145) mEq/L Potassium 3.5 (3.5-5.1) mEq/L Chloride 104 (98-107) mEq/L Carbon Dioxide 25 (21-32) mEq/L Anion Gap 11.5 (5-15) BUN 4 L (7-18) mg/dL Creatinine 0.6 (0.55-1.02) mg/dL Est Cr Clr Drug Dosing 161.74 mL/min Estimated GFR (MDRD) > 60 (>60) mL/min BUN/Creatinine Ratio 6.7 L (14-18) Glucose 106 (74-106) mg/dL Calcium 8.6 (8.5-10.1) mg/dL Magnesium 2.1 (1.8-2.4) mg/dl Total Bilirubin 0.5 (0.2-1.0) mg/dL AST 13 L (15-37) U/L ALT 47 (14-59) U/L Alkaline Phosphatase 66 (46-116) U/L Total Protein 6.4 (6.4-8.2) g/dl Albumin 3.1 L (3.4-5.0) g/dl Globulin 3.3 gm/dL Albumin/Globulin Ratio 0.9 L (1-2) Med Orders - Current: Current Medications Dextrose/Lactated Ringer's (Dextrose 5%-Lactated Ringers) 1,000 mls @ 150 mls/ hr IV ASDIRECTED [facility] Last Admin: 06/14/16 04:22 Dose: 150 mls/hr Magnesium Sulfate (Pharmacy To Dose - Magnesium Replacement) 0 dose .XX ASDIRECTED PRN PRN Reason: RX DOSE Metoclopramide HCl (Reglan) 10 mg IVPUSH Q6H PRN PRN Reason: Nausea Morphine Sulfate (Morphine) 10 mg IM Q6H PRN PRN Reason: Nausea Last Admin: 06/14/16 04:06 Dose: 10 mg Potassium Chloride (Pharmacy To Dose - Potassium Replacement) 0 dose .XX ASDIRECTED PRN PRN Reason: RX DOSE Promethazine HCl (Phenergan) 25 mg IM Q6H PRN PRN Reason: Nausea Last Admin: 06/14/16 04:06 Dose: 25 mg Sodium Chloride (Saline Flush) 10 ml FLUSH ASDIRECTED PRN PRN Reason: Keep Vein Open Last Admin: 06/13/16 15:55 Dose: 10 ml Discontinued Medications Diphenhydramine HCl (Benadryl) 50 mg IVPUSH ONETIME ONE Stop: 06/13/16 15:47 Last Admin: 06/13/16 15:56 Dose: 50 mg Sodium Chloride (Normal Saline) 1,000 mls @ 999 mls/hr IV ONETIME ONE Stop: 06/13/16 16:45 Last Admin: 06/13/16 15:52 Dose: 999 mls/hr Sodium Chloride (Normal Saline) 1,000 mls @ 999 mls/hr IV ONETIME ONE Stop: 06/13/16 16:50 Last Admin: 06/13/16 16:55 Dose: 999 mls/hr Magnesium Sulfate 2 gm/ Premix 50 mls @ 25 mls/hr IV ONETIME ONE Stop: 06/13/16 19:02 Last Admin: 06/13/16 17:14 Dose: 25 mls/hr Magnesium Sulfate 2 gm/ Premix 50 mls @ 50 mls/hr IV ONETIME ONE Stop: 06/13/16 23:29 Last Admin: 06/13/16 22:17 Dose: 50 mls/hr Potassium Chloride 10 meq/ (Premix) 100 mls @ 100 mls/hr IV Q1H KIKI Stop: 06/14/16 02:29 Last Admin: 06/14/16 02:27 Dose: 100 mls/hr Metoclopramide HCl (Reglan) 10 mg IVPUSH ONETIME ONE Stop: 06/13/16 15:46 Last Admin: 06/13/16 15:52 Dose: 10 mg Morphine Sulfate (Morphine) 5 mg IVPUSH ONETIME ONE Stop: 06/13/16 16:51 Last Admin: 06/13/16 16:56 Dose: 5 mg Morphine Sulfate (Morphine) 2 mg IVPUSH ONETIME ONE Stop: 06/13/16 19:09 Last Admin: 06/13/16 19:22 Dose: 2 mg Ondansetron HCl (Zofran) 4 mg IVPUSH ONETIME ONE Stop: 06/13/16 16:42 Last Admin: 06/13/16 16:46 Dose: 4 mg Ondansetron HCl (Zofran) 4 mg IVPUSH ONETIME ONE Stop: 06/13/16 18:54 Last Admin: 06/13/16 18:58 Dose: 4 mg - Exam General: alert, oriented, cooperative, no acute distress HEENT: Pupils equal, EOMI Neck: supple Lungs: Clear to auscultation, Normal respiratory effort Cardiovascular: Regular Rate, Regular Rhythm Abdomen: bowel sounds present, soft, no tenderness, no distension (Female) Exam: Deferred Back Exam: normal inspection Extremities: no edema, no calf tenderness Peripheral Pulses: 1+: dorsalis pedis (L), dorsalis pedis (R) Skin: warm, dry, intact Neurological: no new focal deficit Psy/Mental Status: alert, normal affect, normal mood Consult PN Assessment/Plan Procedures: Procedures EMERGENCY DEPT VISIT (03/27/16) THER/PROPH/DIAG INJ SC/IM (03/27/16) (1) Hyperemesis arising during SNOMED Code(s): 11228066 Code(s): O21.0 - MILD HYPEREMESIS GRAVIDARUM Priority: High Current Visit : Yes (2) 7 weeks gestation of SNOMED Code(s): 24229268 Code(s): Z3A.01 - LESS THAN 8 WEEKS GESTATION OF Priority: High Current Visit: Yes (3) Hypomagnesemia SNOMED Code(s): 052811677 Code(s): E83.42 - HYPOMAGNESEMIA Priority: High Current Visit: Yes Problem List Initiated/Reviewed/Updated: Yes Plan: Assessment: 7th Week Dehydration Hyperemesis Gravidum Hypomagnesemia Plan: Patient is fairly stable Routine AM Labs Continue IV fluids Magnesium 2 gm IV x1 yesterday- mag stable today at 2.1 KCL 10 mEQ 1 hr x 3 doses only yesterday- K+ stable at 3.5 today Continue supportive care
--- NOTE | 2016-06-14 12:03 | US ---
Addendum: Impression stating that no growth occurred within the embryo is incorrect. Growth is appropriate from prior study and no further follow-up is needed if patient has no clinical indications. --- Addendum1 above dictated on [06/14/2016 13:01] by [Kory Willis, Jason Sands] --- --- Addendum1 above signed on [06/14/2016 13:03] by [Kory Willis Hilton J.] --- --- Original report below dictated on [06/14/2016 11:59] by [Kory Willis, Jason Sands] --- --- Original report below signed on [06/14/2016 12:01] by [Kory Willis, Jason Sands] --- 1st trimester obstetrical ultrasound: Multiple real-time images were obtained transvaginally. Comparison: Previous study of 06/09/16. Dates: LMP: LMP given as 04/20/16, ANETA 01/25/17, gestational age 7 weeks 6 days Current ultrasound: ANETA 01/22/17, gestational age 8 weeks 2 days Earlier ultrasound (06/09/16): ANETA 01/23/17, gestational age 8 weeks 1 day Single intrauterine gestation is seen. Embryo is identified. Debris identified within the amniotic fluid. Yolk sac again noted. Maternal ovaries are unremarkable. Measurements: Gestational sac: 3.72 cm - 9 weeks 0 days [place]-rump length: 1.77 cm - 8 weeks 2 days Heart rate: 168 bpm Impression: 1. Single intrauterine gestation. Heart activity is seen. Debris noted within the amniotic fluid. 2. Lack of growth is identified from prior study. Note: Recommend continued follow-up. If patient clinically remains stable, recommend follow-up study in 11 days to reevaluate embryo growth Diagnostic code #3 --- Addendum1 signed ---
--- NOTE | 2016-06-14 17:13 | PCM.SN ---
- Free Text/Narrative Note: Patient doing better with phenergan will apply topical phenergan q4-6h to volar surface of wrist. Advanced diet to regular and patient feeling better. Hopefully home tomorrow.
[2016-06-14] MEDS: PROMETHAZINE TOP PRN (17:22)
[2016-06-14] MEDS: Metoclopramide 10 MG/2 ML SDV IVPUSH PRN ×2 (17:58→23:46)
[2016-06-14] MEDS ORDERED: Acetaminophen 325 MG Tab PO PRN (23:54)
[2016-06-15] MEDS: Promethazine 25 MG/ML SDV IM PRN (04:14)
--- NOTE | 2016-06-15 06:49 | PCM.SN ---
- Free Text/Narrative Note: Still c/o nausea, less vomiting. Patient [id number] she is not ready to go home, will be moved to [place] home tomorrow. Patient states she tried topical Phenergan one time without relief, recommended using it as directed to allow absorption and better results.
[2016-06-15] MEDS: Dextrose 5%-Lactated Ringers 1,000 ML IV SCH (07:49)
[2016-06-15] MEDS: PROMETHAZINE TOP PRN (08:45)
[2016-06-15] MEDS ORDERED: Magnesium Sulfate/Water 2 GM in Premix Bag 1 BAG IV ONE ×2 (09:45→16:27)
[2016-06-15] MEDS: Potassium Chloride 20 MEQ Tab.ER PO SCH ×2 (10:51→11:57)
[2016-06-15] MEDS: Dextrose 5%-Lact Ringers w/KCl 1,000 ML IV SCH ×2 (13:57→20:22)
--- NOTE | 2016-06-15 15:26 | PCM.CONSN ---
- General Info Date of Service: 06/15/16 Admission Dx/Problem (Free Text): Admission Diagnosis/Problem Admission Diagnosis/Problem complications Patient seen this morning, awake, alert- sitting up, looks much better. States feels much better; nausea improved. Functional Status: Reports: pain controlled, ambulating, urinating. Denies: new symptoms - Review of Systems General: Reports: No Symptoms HEENT: Reports: no symptoms Pulmonary: Reports: no symptoms Cardiovascular: Reports: No Symptoms Gastrointestinal: Reports: Nausea (improving) Genitourinary: Reports: no symptoms Musculoskeletal: Reports: no symptoms Skin: Reports: no symptoms Neurological: Reports: No Symptoms Psychiatric: Reports: no symptoms - Patient Data Vitals - most recent: Last Vital Signs Temp 98.2 F 06/15/16 11:51 Pulse 80 06/15/16 11:51 Resp 18 06/15/16 11:51 BP 106/58 L 06/15/16 11:51 Pulse Ox 99 06/15/16 11:51 Weight - most recent: 200 lb I&O - last 24 hours: Intake & Output 06/15/16 06/15/16 06/15/16 06:59 14:59 22:59 Intake Total 1450 Balance 1450 Lab Results last 24 hrs: Laboratory Results - last 24 hr 06/15/16 06/15/16 Range/Units 05:53 05:53 WBC 6.40 (3.98-10.04) K/mm3 RBC 4.54 (3.98-5.22) M/mm3 Hgb 13.1 (11.2-15.7) gm/L Hct 36.9 (34.1-44.9) % MCV 81.3 (79.4-94.8) fl MCH 28.9 (25.6-32.2) pg MCHC 35.5 (32.2-35.5) g/dl RDW Std Deviation 37.2 (36.4-46.3) fL Plt Count 155 L (182-369) K/mm3 MPV 12.0 (9.4-12.3) fl Neut % (Auto) 61.4 (34.0-71.1) % Lymph % (Auto) 27.5 (19.3-51.7) % [place] % (Auto) 9.8 (4.7-12.5) % Eos % (Auto) 0.9 (0.7-5.8) Baso % (Auto) 0.2 (0.1-1.2) % Neut # 3.93 (1.56-6.13) K/mm3 Lymph # 1.76 (1.18-3.74) K/mm3 [place] # 0.63 H (0.24-0.36) K/mm3 Eos # 0.06 (0.04-0.36) K/mm3 Baso # 0.01 (0.01-0.08) K/mm3 Sodium 137 (136-145) mEq/L Potassium 3.2 L (3.5-5.1) mEq/L Chloride 103 (98-107) mEq/L Carbon Dioxide 24 (21-32) mEq/L Anion Gap 13.2 (5-15) BUN 3 L (7-18) mg/dL Creatinine 0.6 (0.55-1.02) mg/dL Est Cr Clr Drug Dosing 161.74 mL/min Estimated GFR (MDRD) > 60 (>60) mL/min BUN/Creatinine Ratio 5.0 L (14-18) Glucose 83 (74-106) mg/dL Calcium 8.8 (8.5-10.1) mg/dL Magnesium 1.7 L (1.8-2.4) mg/dl Total Bilirubin 0.5 (0.2-1.0) mg/dL AST 27 (15-37) U/L ALT 65 H (14-59) U/L Alkaline Phosphatase 68 (46-116) U/L Total Protein 6.4 (6.4-8.2) g/dl Albumin 3.2 L (3.4-5.0) g/dl Globulin 3.2 gm/dL Albumin/Globulin Ratio 1.0 (1-2) Med Orders - Current: Current Medications Acetaminophen (Tylenol) 650 mg PO Q6H PRN PRN Reason: Headache Last Admin: 06/15/16 00:06 Dose: 650 mg Potassium Cl/Dextrose/Lact Ringer's (D5 Lr With 20 Meq Kcl) 1,000 mls @ 150 mls /hr IV ASDIRECTED KIKI Last Admin: 06/15/16 13:57 Dose: 150 mls/hr Metoclopramide HCl (Reglan) 10 mg IVPUSH Q6H PRN PRN Reason: Nausea Last Admin: 06/14/16 23:46 Dose: 10 mg Morphine Sulfate (Morphine) 10 mg IM Q6H PRN PRN Reason: Nausea Last Admin: 06/14/16 04:06 Dose: 10 mg C-Promethazine Plo (Gel) 0 each TOP Q4H PRN PRN Reason: Nausea/Vomiting Last Admin: 06/15/16 08:45 Dose: 0.5 each Promethazine HCl (Phenergan) 25 mg IM Q6H PRN PRN Reason: Nausea Last Admin: 06/15/16 04:14 Dose: 25 mg Sodium Chloride (Saline Flush) 10 ml FLUSH ASDIRECTED PRN PRN Reason: Keep Vein Open Last Admin: 06/13/16 15:55 Dose: 10 ml Discontinued Medications Diphenhydramine HCl (Benadryl) 50 mg IVPUSH ONETIME ONE Stop: 06/13/16 15:47 Last Admin: 06/13/16 15:56 Dose: 50 mg Sodium Chloride (Normal Saline) 1,000 mls @ 999 mls/hr IV ONETIME ONE Stop: 06/13/16 16:45 Last Admin: 06/13/16 15:52 Dose: 999 mls/hr Sodium Chloride (Normal Saline) 1,000 mls @ 999 mls/hr IV ONETIME ONE Stop: 06/13/16 16:50 Last Admin: 06/13/16 16:55 Dose: 999 mls/hr Magnesium Sulfate 2 gm/ Premix 50 mls @ 25 mls/hr IV ONETIME ONE Stop: 06/13/16 19:02 Last Admin: 06/13/16 17:14 Dose: 25 mls/hr Dextrose/Lactated Ringer's (Dextrose 5%-Lactated Ringers) 1,000 mls @ 150 mls/ hr IV ASDIRECTED KIKI Last Admin: 06/15/16 07:49 Dose: 150 mls/hr Magnesium Sulfate 2 gm/ Premix 50 mls @ 50 mls/hr IV ONETIME ONE Stop: 06/13/16 23:29 Last Admin: 06/13/16 22:17 Dose: 50 mls/hr Potassium Chloride 10 meq/ (Premix) 100 mls @ 100 mls/hr IV Q1H KIKI Stop: 06/14/16 02:29 Last Admin: 06/14/16 02:27 Dose: 100 mls/hr Magnesium Sulfate 2 gm/ Premix 50 mls @ 25 mls/hr IV ONETIME ONE Stop: 06/15/16 11:44 Last Admin: 06/15/16 10:48 Dose: 25 mls/hr Magnesium Sulfate (Pharmacy To Dose - Magnesium Replacement) 0 dose .XX ASDIRECTED PRN PRN Reason: RX DOSE Metoclopramide HCl (Reglan) 10 mg IVPUSH ONETIME ONE Stop: 06/13/16 15:46 Last Admin: 06/13/16 15:52 Dose: 10 mg Morphine Sulfate (Morphine) 5 mg IVPUSH ONETIME ONE Stop: 06/13/16 16:51 Last Admin: 06/13/16 16:56 Dose: 5 mg Morphine Sulfate (Morphine) 2 mg IVPUSH ONETIME ONE Stop: 06/13/16 19:09 Last Admin: 06/13/16 19:22 Dose: 2 mg Ondansetron HCl (Zofran) 4 mg IVPUSH ONETIME ONE Stop: 06/13/16 16:42 Last Admin: 06/13/16 16:46 Dose: 4 mg Ondansetron HCl (Zofran) 4 mg IVPUSH ONETIME ONE Stop: 06/13/16 18:54 Last Admin: 06/13/16 18:58 Dose: 4 mg Potassium Chloride (Pharmacy To Dose - Potassium Replacement) 0 dose .XX ASDIRECTED PRN PRN Reason: RX DOSE Potassium Chloride (Klor-Con M20) 20 meq PO Q3H KIKI Stop: 06/15/16 12:46 Last Admin: 06/15/16 11:57 Dose: Not Given - Exam General: alert, oriented, cooperative, no acute distress HEENT: Pupils equal, Pupils reactive, EOMI, Mucous membr. moist/pink Neck: supple Lungs: Normal respiratory effort Cardiovascular: Regular Rate, Regular Rhythm Abdomen: bowel sounds present, soft, no tenderness Extremities: no edema Neurological: no new focal deficit Psy/Mental Status: alert, normal affect, normal mood Consult PN Assessment/Plan Procedures: Procedures EMERGENCY DEPT VISIT (03/27/16) THER/PROPH/DIAG INJ SC/IM (03/27/16) (1) Hyperemesis arising during SNOMED Code(s): 00028992 Code(s): O21.0 - MILD HYPEREMESIS GRAVIDARUM Priority: High Current Visit : Yes (2) Hypomagnesemia SNOMED Code(s): 697415992 Code(s): E83.42 - HYPOMAGNESEMIA Priority: High Current Visit: Yes (3) 8 weeks gestation of SNOMED Code(s): 57106024 Code(s): Z3A.08 - 8 WEEKS GESTATION OF Priority: High Current Visit: Yes Problem List Initiated/Reviewed/Updated: Yes Plan: Assessment: 8th Week Dehydration Hyperemesis Gravidum Hypomagnesemia Plan: Patient is improved, looking better today, less nausea. Routine AM Labs Continue IV fluids Cont to replace mag and K+ PRN based on am labs.
--- NOTE | 2016-06-15 16:25 | PCM.SN ---
- Free Text/Narrative Note: Patient has not vomited since early this AM, has used the topical Phenergan twice. SCD's to prevent thrombosis. Probably home tomorrow. IV D5LR w/KCL 20 meq and po magnesium.
[2016-06-16] MEDS: Dextrose 5%-Lact Ringers w/KCl 1,000 ML IV SCH (02:47)
--- NOTE | 2016-06-16 08:15 | PCM.DCSUM1 ---
Discharge Summary - Hospital Course Free Text/Narrative:: Patient admitted with severe nausea and vomiting of (hyperemesis graviadarum) with hypoklemia and hypomagnesiemia and dehydration. Prior GB removal (considered stones in common duct but responded to rehydration and antiemetics) Now on topical phenergan tid will see Dr garduno for new OB soon. HPI Initial Comments: Patient admitted with severe nausea and vomiting of (hyperemesis graviadarum) with hypoklemia and hypomagnesiemia and dehydration. Prior GB removal (considered stones in common duct but responded to rehydration and antiemetics) Now on topical phenergan tid will see Dr garduno for new OB soon. Brief History: Patient admitted with severe nausea and vomiting of ( hyperemesis graviadarum) with hypoklemia and hypomagnesiemia and dehydration. Prior GB removal (considered stones in common duct but responded to rehydration and antiemetics) Now on topical phenergan tid will see Dr garduno for new OB soon. - Discharge Data Discharge Date: 06/16/16 Discharge Disposition: Home, Self-Care 01 Condition: Good - Discharge Diagnosis/Problem(s) (1) Hypomagnesemia SNOMED Code(s): 254936405 ICD Code: E83.42 - HYPOMAGNESEMIA Status: Acute Priority: High Current Visit: Yes (2) 7 weeks gestation of SNOMED Code(s): 40503728 ICD Code: Z3A.01 - LESS THAN 8 WEEKS GESTATION OF Status: Acute Priority: High Current Visit: Yes (3) Dehydration SNOMED Code(s): 98824772 ICD Code: E86.0 - DEHYDRATION Status: Acute Priority: High Current Visit: No (4) Hyperemesis arising during SNOMED Code(s): 60198857 ICD Code: O21.0 - MILD HYPEREMESIS GRAVIDARUM Status: Acute Priority: High Current Visit: Yes (5) Hypokalemia SNOMED Code(s): 48105795 ICD Code: E87.6 - HYPOKALEMIA Status: Acute Priority: High Current Visit: No - Patient Summary/Data Complications: none Consults: Consultations 06/13/16 21:25 Consult to Physician [CONS] Urgent Hospital Course: uneventful - Patient Instructions Diet: Heart Healthy Diet Driving: Do Not Drive (x48 hrs) Showering/Bathing: May Shower Notify Provider of: Fever, Increased Pain, Swelling and Redness, Drainage, Nausea and/or Vomiting - Discharge Plan Home Medications: Home Meds PNV95/Ferrous Fumarate/FA [ Tablet] 1 each PO DAILY 06/08/16 [History] Metoclopramide [Reglan] 10 mg PO Q6HR PRN 06/13/16 [History] Patient Handouts: Eating Plan for Hyperemesis Gravidarum, Hyperemesis Gravidarum Forms: ED Department Discharge Referrals: Santo Paul MD [Physician] - PCP,None [Primary Care Provider] - - Discharge Summary/Plan Comment DC Time >30 min.: No - Patient Data Vitals - Most Recent: Last Vital Signs Temp 98.1 F 06/16/16 02:50 Pulse 72 06/16/16 02:50 Resp 16 06/16/16 02:50 BP 110/58 L 06/16/16 02:50 Pulse Ox 99 06/16/16 02:50 Weight - Most Recent: 200 lb 14.4 oz I&O - Last 24 hours: Intake & Output 06/15/16 06/16/16 06/16/16 22:59 06:59 14:59 Intake Total 540 3383 Balance 540 3383 Lab Results - Last 24 hrs: Laboratory Results - last 24 hr 06/15/16 06/16/16 06/16/16 Range/Units 05:53 05:36 05:36 WBC 5.91 (3.98-10.04) K/mm3 RBC 4.17 (3.98-5.22) M/mm3 Hgb 12.3 (11.2-15.7) gm/L Hct 34.4 (34.1-44.9) % MCV 82.5 (79.4-94.8) fl MCH 29.5 (25.6-32.2) pg MCHC 35.8 H (32.2-35.5) g/dl RDW Std Deviation 36.9 (36.4-46.3) fL Plt Count 148 L (182-369) K/mm3 MPV 11.9 (9.4-12.3) fl Neut % (Auto) 53.9 (34.0-71.1) % Lymph % (Auto) 31.3 (19.3-51.7) % [place] % (Auto) 12.4 (4.7-12.5) % Eos % (Auto) 1.9 (0.7-5.8) Baso % (Auto) 0.3 (0.1-1.2) % Neut # (Auto) 3.19 (1.56-6.13) K/mm3 Lymph # (Auto) 1.85 (1.18-3.74) K/mm3 [place] # (Auto) 0.73 H (0.24-0.36) K/mm3 Eos # (Auto) 0.11 (0.04-0.36) K/mm3 Baso # (Auto) 0.02 (0.01-0.08) K/mm3 Sodium 137 138 (136-145) mEq/L Potassium 3.2 L 3.6 (3.5-5.1) mEq/L Chloride 103 104 (98-107) mEq/L Carbon Dioxide 24 25 (21-32) mEq/L Anion Gap 13.2 12.6 (5-15) BUN 3 L 5 L (7-18) mg/dL Creatinine 0.6 0.6 (0.55-1.02) mg/dL Est Cr Clr Drug Dosing 161.74 161.74 mL/min Estimated GFR (MDRD) > 60 > 60 (>60) mL/min BUN/Creatinine Ratio 5.0 L 8.3 L (14-18) Glucose 83 78 (74-106) mg/dL Calcium 8.8 8.5 (8.5-10.1) mg/dL Magnesium 1.7 L 1.9 (1.8-2.4) mg/dl Total Bilirubin 0.5 0.3 (0.2-1.0) mg/dL AST 27 31 (15-37) U/L ALT 65 H 76 H (14-59) U/L Alkaline Phosphatase 68 65 (46-116) U/L Total Protein 6.4 6.1 L (6.4-8.2) g/dl Albumin 3.2 L 3.0 L (3.4-5.0) g/dl Globulin 3.2 3.1 gm/dL Albumin/Globulin Ratio 1.0 1.0 (1-2) Med Orders - Current: Current Medications Acetaminophen (Tylenol) 650 mg PO Q6H PRN PRN Reason: Headache Last Admin: 06/15/16 00:06 Dose: 650 mg Potassium Cl/Dextrose/Lact Ringer's (D5 Lr With 20 Meq Kcl) 1,000 mls @ 150 mls /hr IV ASDIRECTED KIKI Last Admin: 06/16/16 02:47 Dose: 150 mls/hr Metoclopramide HCl (Reglan) 10 mg IVPUSH Q6H PRN PRN Reason: Nausea Last Admin: 06/14/16 23:46 Dose: 10 mg Morphine Sulfate (Morphine) 10 mg IM Q6H PRN PRN Reason: Nausea Last Admin: 06/14/16 04:06 Dose: 10 mg C-Promethazine Plo (Gel) 0 each TOP Q4H PRN PRN Reason: Nausea/Vomiting Last Admin: 06/15/16 08:45 Dose: 0.5 each Promethazine HCl (Phenergan) 25 mg IM Q6H PRN PRN Reason: Nausea Last Admin: 06/15/16 04:14 Dose: 25 mg Sodium Chloride (Saline Flush) 10 ml FLUSH ASDIRECTED PRN PRN Reason: Keep Vein Open Last Admin: 06/13/16 15:55 Dose: 10 ml Discontinued Medications Diphenhydramine HCl (Benadryl) 50 mg IVPUSH ONETIME ONE Stop: 06/13/16 15:47 Last Admin: 06/13/16 15:56 Dose: 50 mg Sodium Chloride (Normal Saline) 1,000 mls @ 999 mls/hr IV ONETIME ONE Stop: 06/13/16 16:45 Last Admin: 06/13/16 15:52 Dose: 999 mls/hr Sodium Chloride (Normal Saline) 1,000 mls @ 999 mls/hr IV ONETIME ONE Stop: 06/13/16 16:50 Last Admin: 06/13/16 16:55 Dose: 999 mls/hr Magnesium Sulfate 2 gm/ Premix 50 mls @ 25 mls/hr IV ONETIME ONE Stop: 06/13/16 19:02 Last Admin: 06/13/16 17:14 Dose: 25 mls/hr Dextrose/Lactated Ringer's (Dextrose 5%-Lactated Ringers) 1,000 mls @ 150 mls/ hr IV ASDIRECTED [facility] Last Admin: 06/15/16 07:49 Dose: 150 mls/hr Magnesium Sulfate 2 gm/ Premix 50 mls @ 50 mls/hr IV ONETIME ONE Stop: 06/13/16 23:29 Last Admin: 06/13/16 22:17 Dose: 50 mls/hr Potassium Chloride 10 meq/ (Premix) 100 mls @ 100 mls/hr IV Q1H KIKI Stop: 06/14/16 02:29 Last Admin: 06/14/16 02:27 Dose: 100 mls/hr Magnesium Sulfate 2 gm/ Premix 50 mls @ 25 mls/hr IV ONETIME ONE Stop: 06/15/16 11:44 Last Admin: 06/15/16 10:48 Dose: 25 mls/hr Magnesium Sulfate 2 gm/ Premix 50 mls @ 25 mls/hr IV ONETIME ONE Stop: 06/15/16 18:26 Last Admin: 06/15/16 17:17 Dose: 25 mls/hr Magnesium Sulfate (Pharmacy To Dose - Magnesium Replacement) 0 dose .XX ASDIRECTED PRN PRN Reason: RX DOSE Metoclopramide HCl (Reglan) 10 mg IVPUSH ONETIME ONE Stop: 06/13/16 15:46 Last Admin: 06/13/16 15:52 Dose: 10 mg Morphine Sulfate (Morphine) 5 mg IVPUSH ONETIME ONE Stop: 06/13/16 16:51 Last Admin: 06/13/16 16:56 Dose: 5 mg Morphine Sulfate (Morphine) 2 mg IVPUSH ONETIME ONE Stop: 06/13/16 19:09 Last Admin: 06/13/16 19:22 Dose: 2 mg Ondansetron HCl (Zofran) 4 mg IVPUSH ONETIME ONE Stop: 06/13/16 16:42 Last Admin: 06/13/16 16:46 Dose: 4 mg Ondansetron HCl (Zofran) 4 mg IVPUSH ONETIME ONE Stop: 06/13/16 18:54 Last Admin: 06/13/16 18:58 Dose: 4 mg Potassium Chloride (Pharmacy To Dose - Potassium Replacement) 0 dose .XX ASDIRECTED PRN PRN Reason: RX DOSE Potassium Chloride (Klor-Con M20) 20 meq PO Q3H KIKI Stop: 06/15/16 12:46 Last Admin: 06/15/16 11:57 Dose: Not Given *Q Meaningful Use (DIS) - VTE *Q VTE Criteria *Q: - Stroke *Q Stroke Criteria *Q: - AMI *Q AMI Criteria *Q:
[2016-06-16 08:18] VITALS: BP 131/68
== END 2016-06-16 09:47 | disposition home or self-care (01) | DRG 781 ==
LOC: JD.ED 15:05 → JD.OB 20:09 → JD.MS 20:09 → JD.OB 06-15 09:00 → JD.MS 06-15 09:00 → UNDODISIN 06-16 09:47
PROVIDERS: ADMIT Obstetrics & Gynecology; ATTEND Obstetrics & Gynecology
DX: O21.0 Mild hyperemesis gravidarum (principal); O21.1 Hyperemesis gravidarum with metabolic disturbance; Z3A.01 Less than 8 weeks gestation of pregnancy; E83.42 Hypomagnesemia
CPT/HCPCS: 36415; 80053; 81001; 83735; 84702; 85025; 86140; 96361; 96365; 96366; 96375; 96376; 99285; J1200; J2270 ×2; J2405 ×2; J2765; J7040 ×2; J7042; J7050; 76817; 76817-26; 99284; A9270-GY; J2550; J3475; J3480

== ENCOUNTER 2016-06-19 01:32 | Inpatient (IN) | payer OTHER ==
[2016-06-19] MEDS ORDERED: Metoclopramide 10 MG/2 ML SDV IVPUSH ONE (01:51)
[2016-06-19] MEDS ORDERED: LORazepam 2 MG/ML MDV IVPUSH ONE (01:51)
[2016-06-19] MEDS ORDERED: HYDROmorphone 0.5 MG/0.5 ML Syringe IVPUSH ONE (01:55)
--- NOTE | 2016-06-19 01:56 | EDM.PDOC ---
ED HPI GI/ABDOMINAL - General Chief Complaint: Abdominal Pain Stated Complaint: 8 WKS VOMITING/STOMACH PAIN Time Seen by Provider: 06/19/16 01:55 Source of Information: Reports: Patient, Family (spouse) History Limitations: Reports: No limitations - History of Present Illness INITIAL COMMENTS - FREE TEXT/NARRATIVE: 21-year-old female presents the ED with intractable nausea and vomiting in first trimester of . She is clinically 8 weeks gestation. Started vomiting about 4 and one half weeks gestation. She's been seen and hospitalized twice in the last week due to hyperemesis gravidarum and severe intractable nausea and vomiting with metabolic acidosis. Was admitted to June 08 to the and again from June 13 to the . She reports that she's vomited about 25 times the last 24 hours. Dry heaving for the most part bilious no blood. Also having some loose stools for 5 per day. Again no blood. She is 2 para zero. Prescription is at 7 weeks of miscarriage. She has no vaginal bleeding or spotting. As a lot of upper abdominal cramping pain due to recurrent vomiting. A multitude of medications have been tried to control the vomiting and nothing seems to work better than another. I believe she was discharged home on Phenergan gel use of in her wrists. Symptom Onset Date: 06/17/16 Timing/Duration: Reports: Day(s):, Getting worse, Intermittent, Waxing/waning Location: other (Continuous vomiting with epigastric and bilateral upper quadrant abdominal pain) Quality: Reports: ache, burning, cramping, fullness Improves with: Reports: vomiting Worsens with: Reports: vomiting Context: Reports: other (First trimester .). Denies: sick contact, bad /questionable food, out of country travel, recent surgery Associated Symptoms (-Female): Reports: chest pain, diarrhea, loss of appetite , malaise, nausea/vomiting. Denies: back pain (Epigastric lower retrosternal chest pain from vomiting so much), groin pain, shoulder pain, constipation ( Loose stools usually 4-5 per day), bloody stools, fever/chills Treatments SPECIAL PROCEDURES NURSE: Reports: Other (see below) (Phenergan gel.) - Related Data Allergies/ADRs: Allergies Allergy/AdvReac Type Severity Reaction Status Date / Time No Known Allergies Allergy Verified 06/19/16 01:39 Home Meds: Home Meds PNV95/Ferrous Fumarate/FA [ Tablet] 1 each PO DAILY 06/08/16 [History] Metoclopramide [Reglan] 10 mg PO Q6HR PRN 06/13/16 [History] Past Medical History - Past Health History Medical/Surgical History: Denies Medical/Surgical History Genitourinary History: Reports: UTI, recurrent [employer] History: Reports: , Spontaneous Other OB/BYN History: x2 - Past Surgical History GI Surgical History: Reports: Cholecystectomy Social & Family History - Family History Family Medical History: Noncontributory - Tobacco Use Smoking Status *Q: Never Smoker Second Hand Smoke Exposure: No - Caffeine Use Caffeine Use: Reports: Soda Other Caffeine Use: one daily - Recreational Drug Use Recreational Drug Use: No - Living Situation & Occupation Living situation: Reports: ED ROS GENERAL - Review of Systems Review Of Systems: See Below Constitutional: Reports: no symptoms HEENT: Reports: No symptoms, Vertigo Cardiovascular: Reports: No symptoms Endocrine: Reports: fatigue GI/Abdominal: Reports: Abdominal pain (Epigastric and both upper quadrants. Radiates through to her mid back.), Diarrhea, Nausea, Vomiting (Intractable nausea and vomiting.) : Reports: no symptoms Musculoskeletal: Reports: no symptoms Skin: Reports: no symptoms Neurological: Reports: No Symptoms Psychiatric: Reports: No symptoms ED EXAM, GI/ABD - Physical Exam Exam: See Below Exam Limited By: No limitations (Patient is crying as she has a significant abdominal discomfort.) General Appearance: alert, moderate distress (Tearful and crying during interview.) Eyes: bilateral: normal appearance (No jaundice.) Throat/Mouth: Other Head: atraumatic, normocephalic Neck: normal inspection, supple, non-tender, full range of motion. No: lymphadenopathy (L), lymphadenopathy (R) Respiratory/Chest: lungs clear, normal breath sounds (Hyperventilating 26-20 per minute.), no accessory muscle use, respiratory distress Cardiovascular: normal peripheral pulses, no edema, no gallop, no murmur, no rub , tachycardia (Resting tachycardia of 135 per minute but she is tearful and crying at the time.), other GI/Abdominal: hyperactive bowel sounds, tenderness (Epigastrium. Guarding.) Back Exam: normal inspection, full range of motion. No: CVA tenderness (L), CVA tenderness (R) Extremities: normal inspection, normal range of motion, non-tender, no pedal edema, normal capillary refill Neurological: alert, oriented, CN II-XII intact, normal cognition, normal gait, normal reflexes, no motor/sensory deficits Psychiatric: tearful Skin Exam: Warm, Dry, Intact, Normal color Course - Vital Signs Last Recorded V/S: Last Vital Signs Temp 36.4 C 06/19/16 01:40 Pulse 135 H 06/19/16 01:40 Resp 26 H 06/19/16 01:40 BP 154/105 H 06/19/16 01:40 Pulse Ox 99 06/19/16 01:40 Orthostatic Blood Pressure [ 141/100 Standing] Orthostatic Blood Pressure [ 126/85 Sitting] Orthostatic Blood Pressure [ 148/128 Supine] - Orders/Labs/Meds Orders: Active Orders 24 hr Category Date Time Status Dextrose 5%-0.9% NaCl [Dextrose 5%-Normal Saline] 1,000 Med 06/19/16 02:00 Active ml IV ASDIRECTED Magnesium Sulfate/Water [Magnesium Sulfate 2 GM in Med 06/19/16 02:48 Active Water 50 ML] 2 gm Premix Bag 1 bag IV ONETIME Magnesium Sulfate/Water [Magnesium Sulfate 2 GM in Med 06/19/16 02:48 Active Water 50 ML] 2 gm Premix Bag 1 bag IV ONETIME Medication Orders Dextrose/Sodium Chloride (Dextrose 5%-Normal Saline) 1,000 mls @ 999 mls/hr IV ASDIRECTED KIKI Last Admin: 06/19/16 02:23 Dose: 999 mls/hr Magnesium Sulfate 2 gm/ Premix 50 mls @ 25 mls/hr IV ONETIME ONE Stop: 06/19/16 04:47 Magnesium Sulfate 2 gm/ Premix 50 mls @ 25 mls/hr IV ONETIME ONE Stop: 06/19/16 04:47 Labs: Laboratory Tests 06/19/16 06/19/16 06/19/16 Range/Units 02:02 02:02 02:02 WBC 8.88 (3.98-10.04) K/mm3 RBC 5.21 (3.98-5.22) M/mm3 Hgb 15.1 (11.2-15.7) gm/L Hct 40.5 (34.1-44.9) % MCV 77.7 L (79.4-94.8) fl MCH 29.0 (25.6-32.2) pg MCHC 37.3 H (32.2-35.5) g/dl RDW Std Deviation 35.0 L (36.4-46.3) fL Plt Count 213 (182-369) K/mm3 MPV 11.7 (9.4-12.3) fl Neutrophils % (Manual) 74 H (40-60) % Band Neutrophils % 0 (0-10) % Lymphocytes % (Manual) 17 L (20-40) % Atypical Lymphs % 0 % Monocytes % (Manual) 8 (2-10) % Eosinophils % (Manual) 0 L (0.7-5.8) % Basophils % (Manual) 1 (0.1-1.2) Platelet Estimate Adequate Plt Morphology Comment Normal RBC Morph Comment Normal Sodium 137 (136-145) mEq/L Potassium 3.7 (3.5-5.1) mEq/L Chloride 101 (98-107) mEq/L Carbon Dioxide 22 (21-32) mEq/L Anion Gap 17.7 H (5-15) BUN 8 (7-18) mg/dL Creatinine 0.8 (0.55-1.02) mg/dL Est Cr Clr Drug Dosing 121.30 mL/min Estimated GFR (MDRD) > 60 (>60) mL/min BUN/Creatinine Ratio 10.0 L (14-18) Glucose 121 H (74-106) mg/dL Calcium 9.7 (8.5-10.1) mg/dL Magnesium (1.8-2.4) mg/dl Total Bilirubin 0.6 (0.2-1.0) mg/dL AST 15 (15-37) U/L ALT 51 (14-59) U/L Alkaline Phosphatase 72 (46-116) U/L C-Reactive Protein 1.3 H* (<1.0) mg/dL Total Protein 7.9 (6.4-8.2) g/dl Albumin 4.0 (3.4-5.0) g/dl Globulin 3.9 gm/dL Albumin/Globulin Ratio 1.0 (1-2) Ketones (0.0-0.3) mM H. pylori IgG Antibody Negative (NEGATIVE) 06/19/16 06/19/16 Range/Units 02:02 02:02 WBC (3.98-10.04) K/mm3 RBC (3.98-5.22) M/mm3 Hgb (11.2-15.7) gm/L Hct (34.1-44.9) % MCV (79.4-94.8) fl MCH (25.6-32.2) pg MCHC (32.2-35.5) g/dl RDW Std Deviation (36.4-46.3) fL Plt Count (182-369) K/mm3 MPV (9.4-12.3) fl Neutrophils % (Manual) (40-60) % Band Neutrophils % (0-10) % Lymphocytes % (Manual) (20-40) % Atypical Lymphs % % Monocytes % (Manual) (2-10) % Eosinophils % (Manual) (0.7-5.8) % Basophils % (Manual) (0.1-1.2) Platelet Estimate Plt Morphology Comment RBC Morph Comment Sodium (136-145) mEq/L Potassium (3.5-5.1) mEq/L Chloride (98-107) mEq/L Carbon Dioxide (21-32) mEq/L Anion Gap (5-15) BUN (7-18) mg/dL Creatinine (0.55-1.02) mg/dL Est Cr Clr Drug Dosing mL/min Estimated GFR (MDRD) (>60) mL/min BUN/Creatinine Ratio (14-18) Glucose (74-106) mg/dL Calcium (8.5-10.1) mg/dL Magnesium 1.6 L (1.8-2.4) mg/dl Total Bilirubin (0.2-1.0) mg/dL AST (15-37) U/L ALT (14-59) U/L Alkaline Phosphatase (46-116) U/L C-Reactive Protein (<1.0) mg/dL Total Protein (6.4-8.2) g/dl Albumin (3.4-5.0) g/dl Globulin gm/dL Albumin/Globulin Ratio (1-2) Ketones 0.59 (0.0-0.3) mM H. pylori IgG Antibody (NEGATIVE) Meds: Medications Generic Name Dose Route Start Last Admin Trade Name Freq PRN Reason Stop Dose Admin Dextrose/Sodium Chloride 1,000 mls @ 999 mls/hr 06/19/16 02:00 06/19/16 02:23 Dextrose 5%-Normal Saline IV 999 mls/hr ASDIRECTED KIKI Administration Magnesium Sulfate 2 gm/ Premix 50 mls @ 25 mls/hr 06/19/16 02:48 IV 06/19/16 04:47 ONETIME ONE Magnesium Sulfate 2 gm/ Premix 50 mls @ 25 mls/hr 06/19/16 02:48 IV 06/19/16 04:47 ONETIME ONE Discontinued Medications Generic Name Dose Route Start Last Admin Trade Name Freq PRN Reason Stop Dose Admin Hydromorphone HCl 0.5 mg 06/19/16 01:55 06/19/16 02:12 Dilaudid IVPUSH 06/19/16 01:56 0.5 mg ONETIME ONE Administration Magnesium Sulfate/Dextrose 1 100 mls @ 100 mls/hr 06/19/16 02:43 gm/ Premix IV 06/19/16 03:42 ONETIME ONE Lorazepam 0.5 mg 06/19/16 01:51 06/19/16 02:14 Ativan IVPUSH 06/19/16 01:52 0.5 mg ONETIME ONE Administration Metoclopramide HCl 10 mg 06/19/16 01:51 06/19/16 02:10 Reglan IVPUSH 06/19/16 01:52 10 mg ONETIME ONE Administration - Radiology Interpretation Free Text/Narrative:: 21-year-old female presents the ED with hyperemesis gravidarum. She's been admitted to the hospital twice in the last 10 days to 2 hyperemesis gravidarum. She's been vomiting continuously for nearly 2 days. Lightheaded and dizzy. BP lying is 148/128 if this is accurate is 128 sitting BP 126/85 with a pulse of 120 standing BP 141/100 with a pulse of 146. I reviewed her last labs in her last admission anion gap is 19.6. Plan D5 normal saline at open. Reglan 10 mg IV with Ativan 0.5 mg IV and Dilaudid 0.5 mg IV for relief of abdominal pain. Ultrasound does confirm a anderson gestation. EDC set at January 21. Routine labs to include serum magnesium and ketones. - Re-Assessments/Exams Free Text/Narrative Re-Assessment/Exam: 06/19/16 02:42 labs are back. Hemoglobin is 15.1 hematocrit of 40.5. Her white count is 8.88 with 74% neutrophils no bands. MCV is low at 77.7 platelets normal 213,000. Chemistry shows a sodium of 137 potassium of 3.7. Cord 11 bicarbonate 22. Anion gap is elevated at 17.7. Glucose is 121 magnesium slightly 1.6 CRP is 1.3 ketones were slightly elevated at 0.59 H. pylori is negative. Will add 2 g of magnesium IV to her treatment plan. 06/19/16 02:49 patient has been able to fall asleep for a short period time without any vomiting. Still having significant abdominal pain from recurrent dry heaving and retching. Plan I think will be to admit her to hospital to correct her metabolic acidosis and hypomagnesemia. Will see if there is a bed available either on MedSurg or on OB. Patient believes she is too ill to go home.. 06/19/16 03:01 Spoke with mental health consultant [employer] --Dr Taylor and she has agreed to admission to the hospital for rehydration and correction of metabolic acidosis and hypomagnesemia. Departure - Departure Time of Disposition: 03:02 Disposition: Admitted As Inpatient 67 Condition: fair Clinical Impression: Hypomagnesemia, Metabolic acidosis, Hyperemesis gravidarum with carbohydrate depletion Forms: ED Department Discharge - My Orders Last 24 Hours: My Active Orders 06/19/16 02:00 Dextrose 5%-0.9% NaCl [Dextrose 5%-Normal Saline] 1,000 ml IV ASDIRECTED 06/19/16 02:48 Magnesium Sulfate/Water [Magnesium Sulfate 2 GM in Water 50 ML] 2 gm Premix Bag 1 bag IV ONETIME Magnesium Sulfate/Water [Magnesium Sulfate 2 GM in Water 50 ML] 2 gm Premix Bag 1 bag IV ONETIME - Assessment/Plan Last 24 Hours: My Active Orders 06/19/16 02:00 Dextrose 5%-0.9% NaCl [Dextrose 5%-Normal Saline] 1,000 ml IV ASDIRECTED 06/19/16 02:48 Magnesium Sulfate/Water [Magnesium Sulfate 2 GM in Water 50 ML] 2 gm Premix Bag 1 bag IV ONETIME Magnesium Sulfate/Water [Magnesium Sulfate 2 GM in Water 50 ML] 2 gm Premix Bag 1 bag IV ONETIME
[2016-06-19] MEDS ORDERED: Dextrose 5%-0.9% NaCl 1,000 ML IV SCH (02:00)
[2016-06-19] MEDS ORDERED: Magnesium Sulfate/Water 2 GM in Premix Bag 1 BAG IV ONE ×4 (02:48)
[2016-06-19] MEDS ORDERED: HYDROmorphone 0.5 MG/0.5 ML Syringe IVPUSH PRN (03:43)
[2016-06-19] MEDS: NS + KCl 20mEq/L 1,000 ML IV SCH ×2 (04:28→18:18)
[2016-06-19] MEDS: Ondansetron 4 MG/2 ML SDV IVPUSH PRN ×2 (04:30→10:27)
[2016-06-19] MEDS ORDERED: Promethazine 12.5 MG Supp RECTAL PRN (07:06)
--- NOTE | 2016-06-19 07:26 | PCM.LDHP ---
L&D History of Present Illness - General Date of Service: 06/19/16 Admit Problem/Dx: Admission Diagnosis/Problem Admission Diagnosis/Problem Nausea and vomiting Source of Information: Patient - History of Present Illness Introduction:: 21 year old at 8w3d by LMP consistent with 7 week ultrasound presents to ER with one day of intractable nausea and vomiting. Has been admitted x2 for this and most recently was discharged 06/14/16 with topical phenergan gel. Had basically no nausea and did not vomit from day of discharge until the morning prior to this admission at 5 am on 06/18/16. At that time she woke up with some nausea, at an apple and a bowl of cereal with milk and then threw up and was unable to keep anything down. Had not been using the medications prior when she was feeling well. Did subsequently try phenergan and reglan then after the vomiting. She threw up about 25 times and then presented to the ER. Had one episode of emesis in the ER. Has some abdominal pain from retching. PNC scheduled upcoming with Dr. Chavez. Has had gall bladder removed. 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 Denies: fever, chills HEENT: Reports: no symptoms Pulmonary: Reports: No Symptoms Cardiovascular: Reports: no symptoms Gastrointestinal: Reports: Abdominal pain, Nausea, Vomiting. Denies: Diarrhea Genitourinary: Reports: no symptoms Musculoskeletal: Reports: no symptoms Skin: Reports: no symptoms Psychiatric: Reports: no symptoms Neurological: Reports: No Symptoms Hematologic/Lymphatic: Reports: no symptoms Immunologic: Reports: no symptoms L&D Exam - Exam Exam: See Below - Vital Signs Vital Signs: Last Vital Signs Temp 36.9 C 06/19/16 03:33 Pulse 116 H 06/19/16 03:33 Resp 18 06/19/16 03:33 BP 141/105 H 06/19/16 03:33 Pulse Ox 97 06/19/16 03:33 Weight: 88.677 kg - Exam General: alert, oriented HEENT: Conjunctiva clear Lungs: Clear to auscultation, Normal respiratory effort Abdomen: normal bowel sounds, soft, tenderness (diffuse). No: guarding, rigidity, rebound, Osborn's sign Genitourinary: Normal external exam Extremities: normal inspection Skin: warm, dry Neurological: cranial nerves intact, reflexes equal bilateral Psychiatric: other (sleepy, keeps eyes closed to answer questions) - Patient Data Result Diagrams: 06/19/16 02:02 06/19/16 02:02 - Problem List (1) Hyperemesis complicating , antepartum SNOMED Code(s): 22637690 ICD Code: O21.0 - MILD HYPEREMESIS GRAVIDARUM Status: Acute Current Visit : Yes (2) Hypomagnesemia SNOMED Code(s): 054779210 ICD Code: E83.42 - HYPOMAGNESEMIA Status: Acute Current Visit: Yes (3) 8 weeks gestation of SNOMED Code(s): 24793823 ICD Code: Z3A.08 - 8 WEEKS GESTATION OF Status: Acute Priority : High Current Visit: No Problem List Initiated/Reviewed/Updated: Yes Orders Last 24hrs: Active Orders 24 hr Category Date Time Status Communication Order [RC] ASDIRECTED Care 06/19/16 03:40 Active Height and Weight [RC] DAILY Care 06/19/16 07:05 Active Intake and Output [RC] ASDIRECTED Care 06/19/16 07:05 Active Up With Assistance [RC] ASDIRECTED Care 06/19/16 03:36 Active Dextrose 5%-0.9% NaCl [Dextrose 5%-Normal Saline] 1,000 Med 06/19/16 03:45 Active ml IV ASDIRECTED Metoclopramide [Reglan] Med 06/19/16 03:41 Active 10 mg IVPUSH Q6H PRN NS + KCl 20mEq/L [Normal Saline with 20 mEq KCl] 1,000 Med 06/19/16 03:45 Active ml IV ASDIRECTED Ondansetron [Zofran] Med 06/19/16 03:42 Active 4 mg IVPUSH Q4H PRN Promethazine [Phenadoz] Med 06/19/16 07:06 Active 12.5 mg RECTAL Q4H PRN Promethazine [Phenergan] Med 06/19/16 07:06 Active 12.5 mg PO Q6H PRN Resuscitation Status Stat Resus Stat 06/19/16 03:35 Ordered Medication Orders Dextrose/Sodium Chloride (Dextrose 5%-Normal Saline) 1,000 mls @ 999 mls/hr IV ASDIRECTED [facility] Last Admin: 06/19/16 02:23 Dose: 999 mls/hr Dextrose/Sodium Chloride (Dextrose 5%-Normal Saline) 1,000 mls @ 150 mls/hr IV ASDIRECTED [facility] Potassium Chloride/Sodium Chloride (Normal Saline With 20 Meq Kcl) 1,000 mls @ 150 mls/hr IV ASDIRECTED [facility] Last Admin: 06/19/16 04:28 Dose: 150 mls/hr Metoclopramide HCl (Reglan) 10 mg IVPUSH Q6H PRN PRN Reason: Nausea/Vomiting Ondansetron HCl (Zofran) 4 mg IVPUSH Q4H PRN PRN Reason: Nausea/Vomiting Last Admin: 06/19/16 04:30 Dose: 4 mg Promethazine HCl (Phenadoz) 12.5 mg RECTAL Q4H PRN PRN Reason: Nausea/Vomiting Promethazine HCl (Phenergan) 12.5 mg PO Q6H PRN PRN Reason: Nausea/Vomiting Assessment/Plan Comment:: 21 year old with hyperemeis which had been controlled now readmitted with nausea and vomiting x1 day and inability to tolerate pos. -hypomagnesium - will recheck labs later this morning after fluid replacement -CRP slightly elevated - afebrile Nutrition -labs reviewed -Patient had been doing well with POs and ate "anything" for 3 days prior to this admission. -recommend food diary -did not see RD last hospital stay, if here tomorrow would recommend that -daily weights Nausea -phenergan po or rectal this stay -continue reglan regardless of symptoms -b6 25 mg tid and unisom at hs regardless of other nausea meds Pain -avoid narcotics, do not want to exacerbate nausea with constipation
[2016-06-19] MEDS: Metoclopramide 10 MG/2 ML SDV IVPUSH PRN ×3 (07:40→20:12)
[2016-06-19] MEDS ORDERED: LORazepam 2 MG/ML MDV IVPUSH PRN ×2 (07:59→12:48)
[2016-06-19] MEDS ORDERED: Promethazine 25 MG Tab PO PRN (08:07)
[2016-06-19] MEDS: Vitamin B6-pyridOXINE 50 MG Tab PO SCH ×4 (10:31→20:12)
[2016-06-19] MEDS: Dextrose 5%-0.9% NaCl 1,000 ML IV SCH (11:30)
[2016-06-20] MEDS: Dextrose 5%-0.9% NaCl 1,000 ML IV SCH (00:59)
[2016-06-20] MEDS: Metoclopramide 10 MG/2 ML SDV IVPUSH PRN ×2 (02:27→08:24)
[2016-06-20] MEDS: NS + KCl 20mEq/L 1,000 ML IV SCH (07:53)
[2016-06-20] MEDS: Vitamin B6-pyridOXINE 50 MG Tab PO SCH (08:19)
--- NOTE | 2016-06-20 08:50 | PCM.DCSUM1 ---
Discharge Summary - Hospital Course Brief History: Admitted with intractable nausea and vomiting. Tolerated po's well after admission. Electrolyte management. - Discharge Data Discharge Date: 06/20/16 Discharge Disposition: Home, Self-Care 01 Condition: Good - Discharge Diagnosis/Problem(s) (1) Hyperemesis complicating , antepartum SNOMED Code(s): 60223977 ICD Code: O21.0 - MILD HYPEREMESIS GRAVIDARUM Status: Acute Current Visit : Yes (2) Hypomagnesemia SNOMED Code(s): 757807824 ICD Code: E83.42 - HYPOMAGNESEMIA Status: Acute Current Visit: Yes (3) 8 weeks gestation of SNOMED Code(s): 58201738 ICD Code: Z3A.08 - 8 WEEKS GESTATION OF Status: Acute Priority : High Current Visit: No - Patient Summary/Data Consults: Consultations 06/20/16 08:40 Consult to Dietary [Consult to Crane Ladle Person] [CONS] Routine - Patient Instructions Diet: Usual Diet as Tolerated (see dietary consult note) Activity: Rest and Relax Today Driving: May Drive Today Other/Special Instructions: Use reglan regardless of nausea. Continue magnesium po as recommended at prior discharge. - Discharge Plan Home Medications: Home Meds PNV95/Ferrous Fumarate/FA [ Tablet] 1 each PO DAILY 06/08/16 [History] Metoclopramide [Reglan] 10 mg PO Q6HR PRN 06/13/16 [History] Referrals: Dotty Chavez MD [Primary Care Provider] - (this week or next week if possible.) - Discharge Summary/Plan Comment DC Time >30 min.: No - General Info Date of Service: 06/20/16 Functional Status: Reports: tolerating diet - Review of Systems General: Reports: No Symptoms HEENT: Reports: no symptoms Pulmonary: Reports: no symptoms Cardiovascular: Reports: No Symptoms Gastrointestinal: Reports: Nausea. Denies: Abdominal pain, Vomiting Genitourinary: Reports: no symptoms Musculoskeletal: Reports: no symptoms Skin: Reports: no symptoms Neurological: Reports: No Symptoms Psychiatric: Reports: no symptoms - Patient Data Vitals - Most Recent: Last Vital Signs Temp 36.5 C 06/20/16 07:42 Pulse 84 06/20/16 07:42 Resp 20 06/20/16 07:42 BP 146/74 H 06/20/16 07:42 Pulse Ox 96 06/20/16 07:42 Weight - Most Recent: 90.537 kg I&O - Last 24 hours: Intake & Output 06/19/16 06/20/16 06/20/16 22:59 06:59 14:59 Intake Total 2662 2341 Output Total 1300 1250 Balance 1362 1091 Lab Results - Last 24 hrs: Laboratory Results - last 24 hr 06/19/16 06/19/16 06/19/16 Range/Units 11:30 12:03 12:03 WBC 11.08 H (3.98-10.04) K/mm3 RBC 4.86 (3.98-5.22) M/mm3 Hgb 14.3 (11.2-15.7) gm/L Hct 42.0 (34.1-44.9) % MCV 78.4 L (79.4-94.8) fl MCH 29.4 (25.6-32.2) pg MCHC 37.5 H (32.2-35.5) g/dl RDW Std Deviation 35.0 L (36.4-46.3) fL Plt Count 265 (182-369) K/mm3 MPV 11.6 (9.4-12.3) fl Neut % (Auto) 77.8 H (34.0-71.1) % Lymph % (Auto) 14.5 L (19.3-51.7) % [place] % (Auto) 7.3 (4.7-12.5) % Eos % (Auto) 0.1 L (0.7-5.8) Baso % (Auto) 0.2 (0.1-1.2) % Neut # (Auto) 8.62 H (1.56-6.13) K/mm3 Lymph # (Auto) 1.61 (1.18-3.74) K/mm3 Garden # (Auto) 0.81 H (0.24-0.36) K/mm3 Eos # (Auto) 0.01 L (0.04-0.36) K/mm3 Baso # (Auto) 0.02 (0.01-0.08) K/mm3 Manual Slide Review Normal smear Sodium 135 L (136-145) mEq/L Potassium 3.6 (3.5-5.1) mEq/L Chloride 103 (98-107) mEq/L Carbon Dioxide 20 L (21-32) mEq/L Anion Gap 15.6 H (5-15) BUN 6 L (7-18) mg/dL Creatinine 0.8 (0.55-1.02) mg/dL Est Cr Clr Drug Dosing 121.30 mL/min Estimated GFR (MDRD) > 60 (>60) mL/min BUN/Creatinine Ratio 7.5 L (14-18) Glucose 132 H (74-106) mg/dL Calcium 9.0 (8.5-10.1) mg/dL Total Bilirubin 0.5 (0.2-1.0) mg/dL AST 13 L (15-37) U/L ALT 46 (14-59) U/L Alkaline Phosphatase 75 (46-116) U/L Total Protein 7.4 (6.4-8.2) g/dl Albumin 3.6 (3.4-5.0) g/dl Globulin 3.8 gm/dL Albumin/Globulin Ratio 1.0 (1-2) Urine Color Yellow (Yellow) Urine Appearance Clear (Clear) Urine pH 7.0 (5.0-8.0) Ur Specific [place] > or = 1.030 (1.005-1.030) Urine Protein 1+ H (Negative) Urine Glucose (UA) Negative (Negative) Urine Ketones 3+ H (Negative) Urine Occult Blood Negative (Negative) Urine Nitrite Negative (Negative) Urine Bilirubin Negative (Negative) Urine Urobilinogen 0.2 (0.2-1.0) Ur Leukocyte Esterase Negative (Negative) Urine RBC 0-5 (0-5) /hpf Urine WBC 0-5 (0-5) /hpf Ur Squamous Epith Cells 0-5 (0-5) /hpf Amorphous Sediment Moderate H (NOT SEEN) /hpf Urine Bacteria Few (FEW) /hpf Urine Mucus Few (FEW) /hpf Med Orders - Current: Current Medications Dextrose/Sodium Chloride (Dextrose 5%-Normal Saline) 1,000 mls @ 150 mls/hr IV ASDIRECTED [facility] Last Admin: 06/20/16 00:59 Dose: 150 mls/hr Potassium Chloride/Sodium Chloride (Normal Saline With 20 Meq Kcl) 1,000 mls @ 150 mls/hr IV ASDIRECTED [facility] Last Admin: 06/20/16 07:53 Dose: 150 mls/hr Lorazepam (Ativan) 1 mg IVPUSH Q4H PRN PRN Reason: Anxiety Metoclopramide HCl (Reglan) 10 mg IVPUSH Q6H PRN PRN Reason: Nausea/Vomiting Last Admin: 06/20/16 08:24 Dose: 10 mg Ondansetron HCl (Zofran) 4 mg IVPUSH Q4H PRN PRN Reason: Nausea/Vomiting Last Admin: 06/19/16 10:27 Dose: 4 mg Promethazine HCl (Phenadoz) 12.5 mg RECTAL Q4H PRN PRN Reason: Nausea/Vomiting Promethazine HCl (Phenergan) 12.5 mg PO Q6H PRN PRN Reason: Nausea/Vomiting Pyridoxine HCl (Vitamin B6-Pyridoxine) 25 mg PO TID [facility] Last Admin: 06/20/16 08:19 Dose: 25 mg Discontinued Medications Hydromorphone HCl (Dilaudid) 0.5 mg IVPUSH ONETIME ONE Stop: 06/19/16 01:56 Last Admin: 06/19/16 02:12 Dose: 0.5 mg Hydromorphone HCl (Dilaudid) 0.5 mg IVPUSH Q2H PRN PRN Reason: Abdominal Pain Last Admin: 06/19/16 04:34 Dose: 0.5 mg Dextrose/Sodium Chloride (Dextrose 5%-Normal Saline) 1,000 mls @ 999 [facility]ls[facility] Last Admin: 06/19/16 02:23 Dose: 999 mls/hr Magnesium Sulfate/Dextrose 1 (gm/ Premix) 100 mls @ 100 mls/hr IV ONETIME ONE Stop: 06/19/16 03:42 Last Admin: 06/19/16 02:57 Dose: Not Given Magnesium Sulfate 2 gm/ Premix 50 mls @ 25 mls/hr IV ONETIME ONE Stop: 06/19/16 04:47 Last Admin: 06/19/16 02:57 Dose: Not Given Magnesium Sulfate 2 gm/ Premix 50 mls @ 25 mls/hr IV ONETIME ONE Stop: 06/19/16 04:47 Last Admin: 06/19/16 02:55 Dose: 25 mls/hr Lorazepam (Ativan) 0.5 mg IVPUSH ONETIME ONE Stop: 06/19/16 01:52 Last Admin: 06/19/16 02:14 Dose: 0.5 mg Lorazepam (Ativan) 1 mg IVPUSH Q4H PRN PRN Reason: Agitation Last Admin: 06/19/16 11:05 Dose: 1 mg Metoclopramide HCl (Reglan) 10 mg IVPUSH ONETIME ONE Stop: 06/19/16 01:52 Last Admin: 06/19/16 02:10 Dose: 10 mg Promethazine HCl (Phenergan) 12.5 mg PO Q6H PRN PRN Reason: Nausea/Vomiting - Exam General: Reports: alert, oriented HEENT: Reports: Pupils equal, Pupils reactive, EOMI, Mucous membr. moist/pink Neck: Reports: supple Lungs: Reports: Clear to auscultation, Normal respiratory effort Cardiovascular: Reports: Regular Rate, Regular Rhythm Abdomen: Reports: bowel sounds present, soft, no tenderness, no distension (Female) Exam: Normal external exam, Normal speculum exam, Normal bimanual exam Rectal (Female) Exam: Normal Exam, Normal rectal tone Back Exam: Reports: normal inspection, full range of motion Extremities: Reports: no edema, normal pulses Skin: Reports: warm, dry, intact Wound/Incisions: Reports: healing well Neurological: Reports: no new focal deficit Psy/Mental Status: Reports: alert, normal affect, normal mood *Q Meaningful Use (DIS) - VTE *Q VTE Criteria *Q: - Stroke *Q Stroke Criteria *Q: - AMI *Q AMI Criteria *Q:
[2016-06-20] MEDS: Ondansetron 4 MG/2 ML SDV IVPUSH PRN (12:16)
[2016-06-20 12:37] VITALS: BP 132/76
[2016-06-20] MEDS ORDERED: Aluminum Hydroxide/Magnesium Hydroxide/Simethicone Susp 30 ML Cup PO PRN (12:39)
== END 2016-06-20 13:29 | disposition home or self-care (01) | DRG 781 ==
LOC: JD.ED 01:32 → UNDOADMIN 03:03 → JD.MS 03:03 → UNDODISIN 06-20 13:29
PROVIDERS: ADMIT Obstetrics & Gynecology; ATTEND Obstetrics & Gynecology
DX: O21.1 Hyperemesis gravidarum with metabolic disturbance (principal); Z3A.08 8 weeks gestation of pregnancy; E83.42 Hypomagnesemia
CPT/HCPCS: 36415; 80053; 82009; 83735; 85025; 86140; 86677; 96361; 96365; 96375; 99285; J1170; J2060; J2765; J7042; 81001; A9270-GY; J2405; J3475; J3480

== ENCOUNTER 2016-06-21 04:05 | Emergency (ER) | payer OTHER ==
[2016-06-21 04:15] VITALS: BP 153/109
[2016-06-21] MEDS ORDERED: Lactated Ringers 1,000 ML IV ONE (04:25)
[2016-06-21] MEDS ORDERED: Metoclopramide 10 MG/2 ML SDV IVPUSH STA (04:26)
[2016-06-21] MEDS ORDERED: Promethazine 12.5 MG in Sodium Chloride 0.9% 50 ML IV ONE (04:27)
[2016-06-21] MEDS ORDERED: Ondansetron 4 MG/2 ML SDV IVPUSH STA (04:28)
[2016-06-21] MEDS ORDERED: Alum Hydrox/Mag Hydrox/Simeth 30 ML, Lidocaine 2% 15 ML PO STA ×2 (04:29)
[2016-06-21] MEDS ORDERED: diphenhydrAMINE 50 MG/ML SDV IVPUSH ONE (04:31)
--- NOTE | 2016-06-21 04:43 | EDM.PDOC ---
ED HPI - General Chief Complaint: Abdominal Pain Stated Complaint: VOMITING ABDOMINAL PAIN Time Seen by Provider: 06/21/16 04:09 Source of Information: Reports: Patient, RN notes reviewed History Limitations: Reports: No limitations - History of Present Illness INITIAL COMMENTS - FREE TEXT/NARRATIVE: The patient is , 8 weeks 5 days by dates, 9 weeks 2 days based on ultrasound findings 06/14/2016, . She has been experiencing hyperemesis gravidarum since about 4 weeks gestation. She was hospitalized 06/08/16 through 06/10/16, 06/13/16 through 06/16/16, and again 06/19/16 through yesterday, 06/20/16. The patient now returns, stating that she has continued to have nausea, vomiting , diarrhea, and epigastric abdominal pain pain since 21:00 last night. 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 Psychiatric History: Reports: Anxiety - Past Surgical History HEENT Surgical History: Reports: None GI Surgical History: Reports: Cholecystectomy Social & Family History - Family History Family Medical History: Noncontributory - Tobacco Use Smoking Status *Q: Never Smoker Second Hand Smoke Exposure: No - Caffeine Use Caffeine Use: Reports: Soda Other Caffeine Use: one daily - Alcohol Use Alcohol Use History: No - Recreational Drug Use Recreational Drug Use: No - Living Situation & Occupation Living situation: Reports: , with spouse ED ROS GENERAL - Review of Systems Review Of Systems: See Below Constitutional: Reports: no symptoms HEENT: Reports: No symptoms Respiratory: Reports: No Symptoms Cardiovascular: Reports: No symptoms Endocrine: Reports: no symptoms GI/Abdominal: Reports: Abdominal pain, Diarrhea, Nausea, Vomiting : Reports: no symptoms Musculoskeletal: Reports: no symptoms Skin: Reports: no symptoms Neurological: Reports: No Symptoms Psychiatric: Reports: Anxiety Hematologic/Lymphatic: Reports: no symptoms Immunologic: Reports: no symptoms ED EXAM - Physical Exam Exam: See Below Exam Limited By: Other (The patient is emotionally upset, somewhat dramatic) General Appearance: alert, WD/WN, mild distress Eye Exam: bilateral eye: EOMI, normal inspection Ears: normal external exam, hearing grossly normal Nose: normal inspection, no blood Throat/Mouth: Normal inspection, Normal lips, Normal voice, No airway compromise Head: atraumatic, normocephalic Neck: normal inspection, full range of motion Respiratory/Chest: no respiratory distress, lungs clear, normal breath sounds, no accessory muscle use Cardiovascular: normal peripheral pulses, regular rate, rhythm, no gallop, no JVD, no murmur, no rub GI/Abdominal: normal bowel sounds, soft, no organomegaly, no distention, no abnormal bruit, no mass, tender (With light palpation of the patient's upper abdomen, the patient screamed out as if in excruciating pain, however, acknowledged that she was being overly dramatic due to the duration of her symptoms, and that her abdomen was not as tender as she had been indicating), gravid uterus Back Exam: normal inspection, full range of motion, NT Extremities: normal inspection, normal range of motion, no pedal edema, normal capillary refill Neurological: alert, oriented, no motor/sensory deficits Psychiatric: normal affect Skin Exam: Warm, Dry, Intact, Normal color, No rash Lymphatic: no adenopathy Course - Vital Signs Last Recorded V/S: Last Vital Signs Temp 36.4 C 06/21/16 04:13 Pulse 89 06/21/16 06:11 Resp 18 06/21/16 06:11 BP 153/109 H 06/21/16 04:13 Pulse Ox 100 06/21/16 06:11 - Orders/Labs/Meds Labs: Laboratory Tests 06/21/16 06/21/16 06/21/16 Range/Units 04:39 04:39 06:34 WBC 13.53 H (3.98-10.04) K/mm3 RBC 4.90 (3.98-5.22) M/mm3 Hgb 14.2 (11.2-15.7) gm/L Hct 38.8 (34.1-44.9) % MCV 79.2 L (79.4-94.8) fl MCH 29.0 (25.6-32.2) pg MCHC 36.6 H (32.2-35.5) g/dl RDW Std Deviation 35.5 L (36.4-46.3) fL Plt Count 213 (182-369) K/mm3 MPV 11.5 (9.4-12.3) fl Neutrophils % (Manual) 91 H (40-60) % Band Neutrophils % 0 (0-10) % Lymphocytes % (Manual) 5 L (20-40) % Atypical Lymphs % 0 % Monocytes % (Manual) 4 (2-10) % Eosinophils % (Manual) 0 L (0.7-5.8) % Basophils % (Manual) 0 L (0.1-1.2) Platelet Estimate Adequate Plt Morphology Comment Normal RBC Morph Comment Normal Sodium 136 136 (136-145) mEq/L Potassium 3.6 3.8 (3.5-5.1) mEq/L Chloride 100 101 (98-107) mEq/L Carbon Dioxide 22 24 (21-32) mEq/L Anion Gap 17.6 H 14.8 (5-15) BUN 4 L 5 L (7-18) mg/dL Creatinine 0.6 0.6 (0.55-1.02) mg/dL Est Cr Clr Drug Dosing TNP TNP Estimated GFR (MDRD) > 60 > 60 (>60) mL/min BUN/Creatinine Ratio 6.7 L 8.3 L (14-18) Glucose 121 H 102 (74-106) mg/dL Calcium 9.7 9.1 (8.5-10.1) mg/dL Magnesium 1.6 L (1.8-2.4) mg/dl Total Bilirubin 0.6 (0.2-1.0) mg/dL AST 24 (15-37) U/L ALT 62 H (14-59) U/L Alkaline Phosphatase 75 (46-116) U/L Total Protein 7.8 (6.4-8.2) g/dl Albumin 4.0 (3.4-5.0) g/dl Globulin 3.8 gm/dL Albumin/Globulin Ratio 1.1 (1-2) Meds: Medications Discontinued Medications Generic Name Dose Route Start Last Admin Trade Name Freq PRN Reason Stop Dose Admin Al Hydroxide/Mg Hydroxide 30 0 ml 06/21/16 04:29 06/21/16 04:50 ml/ Lidocaine HCl 15 ml PO 06/21/16 04:30 45 ml ONETIME STA Administration Diphenhydramine HCl 50 mg 06/21/16 04:31 06/21/16 04:49 Benadryl IVPUSH 06/21/16 04:32 50 mg ONETIME ONE Administration Lactated Ringer's 1,000 mls @ 999 mls/hr 06/21/16 04:25 06/21/16 04:45 Ringers, Lactated IV 06/21/16 05:25 999 mls/hr .BOLUS ONE Administration Promethazine HCl 12.5 mg/ 50.5 mls @ 100 mls/hr 06/21/16 04:27 06/21/16 04:46 Sodium Chloride IV 06/21/16 04:57 100 mls/hr ONETIME ONE Administration Magnesium Sulfate 2 gm/ Premix 50 mls @ 50 mls/hr 06/21/16 05:21 06/21/16 05: 34 IV 06/21/16 06:20 50 mls/hr ONETIME ONE Administration Metoclopramide HCl 10 mg 06/21/16 04:26 06/21/16 04:49 Reglan IVPUSH 06/21/16 04:27 10 mg ONETIME STA Administration Ondansetron HCl 8 mg 06/21/16 04:28 06/21/16 04:48 Zofran IVPUSH 06/21/16 04:29 8 mg ONETIME STA Administration - Re-Assessments/Exams Free Text/Narrative Re-Assessment/Exam: 06/21/16 04:32 The patient returns with continuation of the same symptoms that prompted admission 2 days ago, 06/19/2016 i.e. nausea, vomiting, and abdominal pain. Patient indicates epigastric pain related to vomiting. I have ordered some blood work and a liter of lactated Ringer's, along with a GI cocktail. For her nausea and emesis, I have ordered Phenergan, Reglan, along with Benadryl to decrease the likelihood of extrapyramidal symptoms. I have also ordered Zofran. 06/21/16 05:04 The patient has been asking the nurse for pain medication. I discussed this with the patient and her . While I acknowledge that the patient has received opioids in the past, I am reluctant to order them because: 1. They are category C. 2. They are intended for severe pain, not muscle pain due to emesis. 3. A common side effect of opioids is nausea and vomiting, precisely the symptoms we're trying to relieve. The patient appears to be understanding of that. She stated that she would like to be admitted to the hospital. At present, I am told that there are no hospital beds available, however, once I get the patient's bloodwork results back, I can call Dr. Murray, the [employer] instructional paraprofessional, to see if he would be willing to admit the patient, and if so, we could potentially keep the patient here in the ED until a bed becomes available. 06/21/16 05:28 The patient's magnesium returned at the present 1.6. I have ordered a 2 g Mag- rider. Case discussed with Dr. Murray at 05:23. At this time, he does not see an indication to admit the patient to the hospital. He would prefer that we provide IV fluid and electrolyte replacement here in the ED, then have the patient followup with Dr. Chavez later today. The plan, then, will be for the patient to finish her 1 L LR and Mag-rider, after which I will have a BMP drawn to check her electrolyte status. 06/21/16 05:37 The above was discussed with the patient. She would prefer to be admitted to the hospital, but, as above, Dr. Murray does not feel she needs to be. Additionally, there are no beds available. Of note, it does not appear that the patient has vomited this ED visit. 06/21/16 07:18 The patient's repeat BMP is completely normal, including a normal anion gap. This was explained to the patient. I will discharge her home. Departure - Departure Time of Disposition: 07:18 Disposition: Home, Self-Care 01 Condition: good Clinical Impression: Hyperemesis gravidarum Referrals: Dotty Chavez MD [Primary Care Provider] - Forms: ED Department Discharge Additional Instructions: You were seen in the emergency room this morning for continued nausea, vomiting , diarrhea, and abdominal pain. Workup in the ER included a CBC, CMP, and magnesium level. Your magnesium level was found to be slightly low at 1.6. You were given 2 g of IV magnesium, along with 1 L of IV fluid, several antinausea medicines, and a GI cocktail. Your repeat chemistry is entirely normal. Your case was discussed with Dr. Murray. He does not feel you need to be admitted to the hospital. He is recommending that you followup with Dr. Chavez later today. If any other problems, please do not hesitate to return to the ER.
[2016-06-21] MEDS ORDERED: Magnesium Sulfate/Water 2 GM in Premix Bag 1 BAG IV ONE (05:21)
== END 2016-06-21 07:29 | disposition home or self-care (01) ==
LOC: JD.ED 04:05 → SUPCPDRO 04:05 → JD.ED 07:29
DX: O21.0 Mild hyperemesis gravidarum (principal); Z3A.09 9 weeks gestation of pregnancy
CPT/HCPCS: 36415; 80048; 80053; 83735; 85025; 96365; 96367; 96375; 99284; A9270; J1200; J2405; J2550; J2765; J7050; J7120; J3475

== ENCOUNTER 2016-06-22 13:16 | Observation (INO) | payer OTHER ==
[2016-06-22] MEDS ORDERED: Metoclopramide 10 MG/2 ML SDV IVPUSH ONE (13:53)
[2016-06-22] MEDS ORDERED: Sodium Chloride 0.9% 10 ML Syringe FLUSH PRN (13:53)
[2016-06-22] MEDS ORDERED: Lactated Ringers 1,000 ML IV SCH (14:00)
--- NOTE | 2016-06-22 14:39 | EDM.PDOC ---
ED HPI GI/ABDOMINAL - General Chief Complaint: Abdominal Pain Stated Complaint: VOMITING BLOOD/ 9 WEEKS Time Seen by Provider: 06/22/16 13:49 Source of Information: Reports: Patient, Old records History Limitations: Reports: No limitations - History of Present Illness INITIAL COMMENTS - FREE TEXT/NARRATIVE: The patient presents with abdominal pain, nausea and vomiting. She also is vomiting up some blood. This episode started last night at 10pm. She is 9 weeks and 3 days by US and her LNMP was 04/20/16. She is [id number]. This has been going on for a few weeks. She has been seen here 5 times now and admitted 3 times. She was seen here yesterday and hydrated and sent home. She is on reglan and that is not helping. She has no health problems. She has no vaginal bleeding. Her last ended in a miscarriage. Timing/Duration: Reports: Week(s): Location: generalized Quality: Reports: cramping Severity: severe Context: Denies: sick contact, bad/questionable food, out of country travel, recent surgery, recent trauma, lifting, activity/exercise Associated Symptoms (-Female): Reports: nausea/vomiting. 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 Other OB/BYN History: x2 Psychiatric History: Reports: Anxiety - Past Surgical History Head Surgeries/Procedures: Reports: None GI Surgical History: Reports: Cholecystectomy Social & Family History - Family History Family Medical History: Noncontributory - Tobacco Use Smoking Status *Q: Never Smoker Second Hand Smoke Exposure: No - Caffeine Use Caffeine Use: Reports: Soda Other Caffeine Use: one daily - Recreational Drug Use Recreational Drug Use: No - Living Situation & Occupation Living situation: Reports: , with spouse ED ROS GENERAL - Review of Systems Review Of Systems: See Below Constitutional: Reports: no symptoms HEENT: Reports: No symptoms Respiratory: Reports: No Symptoms Cardiovascular: Reports: No symptoms Endocrine: Reports: no symptoms GI/Abdominal: Reports: Abdominal pain, Nausea, Vomiting : Reports: no symptoms Musculoskeletal: Reports: no symptoms Skin: Reports: no symptoms Neurological: Reports: No Symptoms ED EXAM, GI/ABD - Physical Exam Exam: See Below Exam Limited By: No limitations General Appearance: alert, no apparent distress Ears: normal external exam Nose: normal inspection Head: atraumatic, normocephalic Neck: normal inspection Respiratory/Chest: no respiratory distress, lungs clear, normal breath sounds Cardiovascular: regular rate, rhythm, no edema, no murmur GI/Abdominal: soft, no organomegaly, no mass, tenderness (Generalized) Back Exam: normal inspection Extremities: normal inspection Course - Vital Signs Last Recorded V/S: Last Vital Signs Temp 98.3 F 06/22/16 13:27 Pulse 130 H 06/22/16 13:27 Resp 20 06/22/16 13:27 BP 154/92 H 06/22/16 13:27 Pulse Ox 97 06/22/16 13:27 - Orders/Labs/Meds Orders: Active Orders 24 hr Category Date Time Status Cardiac Monitoring [RC] . DIRECTED Care 06/22/16 13:53 Active Peripheral IV Care [RC] . DIRECTED Care 06/22/16 13:54 Active Lactated Ringers [Ringers, Lactated] 1,000 ml Med 06/22/16 14:00 Active IV .BOLUS Sodium Chloride 0.9% [Saline Flush] Med 06/22/16 13:53 Active 10 ml FLUSH ASDIRECTED PRN ED Antiemetic Medication Reflex [OM.PC] Stat Oth 06/22/16 13:54 Ordered Peripheral IV Insertion Adult [OM.PC] Stat Oth 06/22/16 13:53 Ordered Medication Orders Lactated Ringer's (Ringers, Lactated) 1,000 mls @ 500 mls/hr IV .BOLUS KIKI Last Admin: 06/22/16 14:02 Dose: 500 mls/hr Sodium Chloride (Saline Flush) 10 ml FLUSH ASDIRECTED PRN PRN Reason: Keep Vein Open Last Admin: 06/22/16 13:30 Dose: 10 ml Labs: Laboratory Tests 06/22/16 06/22/16 06/22/16 Range/Units 13:30 13:30 13:30 WBC 9.61 (3.98-10.04) K/mm3 RBC 5.01 (3.98-5.22) M/mm3 Hgb 14.7 (11.2-15.7) gm/L Hct 40.5 (34.1-44.9) % MCV 80.8 (79.4-94.8) fl MCH 29.3 (25.6-32.2) pg MCHC 36.3 H (32.2-35.5) g/dl RDW Std Deviation 36.5 (36.4-46.3) fL Plt Count 226 (182-369) K/mm3 MPV 12.1 (9.4-12.3) fl Neut % (Auto) 82.7 H (34.0-71.1) % Lymph % (Auto) 5.8 L (19.3-51.7) % Dare % (Auto) 11.2 (4.7-12.5) % Eos % (Auto) 0 L (0.7-5.8) Baso % (Auto) 0.0 L (0.1-1.2) % Neut # (Auto) 7.94 H (1.56-6.13) K/mm3 Lymph # (Auto) 0.56 L (1.18-3.74) K/mm3 Dare # (Auto) 1.08 H (0.24-0.36) K/mm3 Eos # (Auto) 0.00 L (0.04-0.36) K/mm3 Baso # (Auto) 0.00 L (0.01-0.08) K/mm3 Manual Slide Review Normal smear Sodium 137 (136-145) mEq/L Potassium 3.7 (3.5-5.1) mEq/L Chloride 100 (98-107) mEq/L Carbon Dioxide 22 (21-32) mEq/L Anion Gap 18.7 H (5-15) BUN 6 L (7-18) mg/dL Creatinine 0.7 (0.55-1.02) mg/dL Est Cr Clr Drug Dosing 138.63 mL/min Estimated GFR (MDRD) > 60 (>60) mL/min BUN/Creatinine Ratio 8.6 L (14-18) Glucose 89 (74-106) mg/dL Calcium 9.7 (8.5-10.1) mg/dL Magnesium 1.7 L (1.8-2.4) mg/dl Total Bilirubin 0.7 (0.2-1.0) mg/dL AST 53 H (15-37) U/L ALT 118 H (14-59) U/L Alkaline Phosphatase 82 (46-116) U/L Total Protein 7.8 (6.4-8.2) g/dl Albumin 3.9 (3.4-5.0) g/dl Globulin 3.9 gm/dL Albumin/Globulin Ratio 1.0 (1-2) Lipase 77 (73-393) U/L Urine Color (Yellow) Urine Appearance (Clear) Urine pH (5.0-8.0) Ur Specific [place] (1.005-1.030) Urine Protein (Negative) Urine Glucose (UA) (Negative) Urine Ketones (Negative) Urine Occult Blood (Negative) Urine Nitrite (Negative) Urine Bilirubin (Negative) Urine Urobilinogen (0.2-1.0) Ur Leukocyte Esterase (Negative) Urine RBC (0-5) /hpf Urine WBC (0-5) /hpf Ur Squamous Epith Cells (0-5) /hpf Urine Bacteria (FEW) /hpf Urine Mucus (FEW) /hpf Urine Opiates Screen (NEGATIVE) Ur Buprenorphine Scrn (NEGATIVE) Ur Oxycodone Screen (NEGATIVE) Urine Methadone Screen (NEGATIVE) Ur Propoxyphene Screen (NEGATIVE) Ur Barbiturates Screen (NEGATIVE) Ur Tricyclics Screen (NEGATIVE) Ur Phencyclidine Scrn (NEGATIVE) Ur Amphetamine Screen (NEGATIVE) U Methamphetamines Scrn (NEGATIVE) U Benzodiazepines Scrn (NEGATIVE) U Cocaine Metab Screen (NEGATIVE) U Marijuana (THC) Screen (NEGATIVE) Ethyl Alcohol 0.00 (0.00) gm% 06/22/16 06/22/16 Range/Units 15:10 15:10 WBC (3.98-10.04) K/mm3 RBC (3.98-5.22) M/mm3 Hgb (11.2-15.7) gm/L Hct (34.1-44.9) % MCV (79.4-94.8) fl MCH (25.6-32.2) pg MCHC (32.2-35.5) g/dl RDW Std Deviation (36.4-46.3) fL Plt Count (182-369) K/mm3 MPV (9.4-12.3) fl Neut % (Auto) (34.0-71.1) % Lymph % (Auto) (19.3-51.7) % Dare % (Auto) (4.7-12.5) % Eos % (Auto) (0.7-5.8) Baso % (Auto) (0.1-1.2) % Neut # (Auto) (1.56-6.13) K/mm3 Lymph # (Auto) (1.18-3.74) K/mm3 Dare # (Auto) (0.24-0.36) K/mm3 Eos # (Auto) (0.04-0.36) K/mm3 Baso # (Auto) (0.01-0.08) K/mm3 Manual Slide Review Sodium (136-145) mEq/L Potassium (3.5-5.1) mEq/L Chloride (98-107) mEq/L Carbon Dioxide (21-32) mEq/L Anion Gap (5-15) BUN (7-18) mg/dL Creatinine (0.55-1.02) mg/dL Est Cr Clr Drug Dosing mL/min Estimated GFR (MDRD) (>60) mL/min BUN/Creatinine Ratio (14-18) Glucose (74-106) mg/dL Calcium (8.5-10.1) mg/dL Magnesium (1.8-2.4) mg/dl Total Bilirubin (0.2-1.0) mg/dL AST (15-37) U/L ALT (14-59) U/L Alkaline Phosphatase (46-116) U/L Total Protein (6.4-8.2) g/dl Albumin (3.4-5.0) g/dl Globulin gm/dL Albumin/Globulin Ratio (1-2) Lipase (73-393) U/L Urine Color Yellow (Yellow) Urine Appearance Clear (Clear) Urine pH 6.0 (5.0-8.0) Ur Specific [place] > or = 1.030 (1.005-1.030) Urine Protein 2+ H (Negative) Urine Glucose (UA) Negative (Negative) Urine Ketones 4+ H (Negative) Urine Occult Blood Negative (Negative) Urine Nitrite Negative (Negative) Urine Bilirubin 1+ H (Negative) Urine Urobilinogen 1.0 (0.2-1.0) Ur Leukocyte Esterase Negative (Negative) Urine RBC 0-5 (0-5) /hpf Urine WBC 0-5 (0-5) /hpf Ur Squamous Epith Cells 0-5 (0-5) /hpf Urine Bacteria Few (FEW) /hpf Urine Mucus Many H (FEW) /hpf Urine Opiates Screen Negative (NEGATIVE) Ur Buprenorphine Scrn Negative (NEGATIVE) Ur Oxycodone Screen Negative (NEGATIVE) Urine Methadone Screen Negative (NEGATIVE) Ur Propoxyphene Screen Negative (NEGATIVE) Ur Barbiturates Screen Negative (NEGATIVE) Ur Tricyclics Screen Negative (NEGATIVE) Ur Phencyclidine Scrn Negative (NEGATIVE) Ur Amphetamine Screen Negative (NEGATIVE) U Methamphetamines Scrn Negative (NEGATIVE) U Benzodiazepines Scrn Negative (NEGATIVE) U Cocaine Metab Screen Negative (NEGATIVE) U Marijuana (THC) Screen Negative (NEGATIVE) Ethyl Alcohol (0.00) gm% Meds: Medications Generic Name Dose Route Start Last Admin Trade Name Freq PRN Reason Stop Dose Admin Lactated Ringer's 1,000 mls @ 500 mls/hr 06/22/16 14:00 06/22/16 14:02 Ringers, Lactated IV 500 mls/hr .BOLUS KIKI Administration Sodium Chloride 10 ml 06/22/16 13:53 06/22/16 13:30 Saline Flush FLUSH 10 ml ASDIRECTED PRN Administration Keep Vein Open Discontinued Medications Generic Name Dose Route Start Last Admin Trade Name Freq PRN Reason Stop Dose Admin Metoclopramide HCl 10 mg 06/22/16 13:53 06/22/16 14:00 Reglan IVPUSH 06/22/16 13:54 10 mg ONETIME ONE Administration Promethazine HCl 25 mg 06/22/16 15:17 06/22/16 15:38 Phenergan IM 06/22/16 15:18 25 mg ONETIME ONE Administration - Re-Assessments/Exams Free Text/Narrative Re-Assessment/Exam: 06/22/16 14:39 I ordered an IV LR 1L bolus and reglan 10mg IV. 06/22/16 15:23 Her CBC is negative. Her anion gap is elevated at 18.7. Her magnesium is just a little low at 1.7. Her AST is elevated at 53. Her ALT is elevated at 118. Her ETOH is negative. I have ordered an US. She needs something more fore pain so I ordered phenergan 25mg IM. 06/22/16 17:13 The US shows a single intrauterine gestation. Babb rum length 9 weeks 2 days and mean sac diameter 10 weeks 3 days. Heart rate was 192. Embryo shows growth from prior study. Normal heart activity is seen. Debris seen within the gestational sac. Small amount of focal fluid seen next to the gestational sac of uncertain etiology but likely will be incidental. Sediment identified within the maternal bladder. Please rule out UTI. 06/22/16 17:16 She is still nauseated and not feeling well. I talked with Dr Chavez and she came to see the patient and she will admit to observation. Departure - Departure Time of Disposition: 17:20 Disposition: Refer to Observation Condition: good Clinical Impression: Hyperemesis arising during , Dehydration Qualifiers: Weeks of gestation: 9 weeks Qualified Code(s): Z3A.09 - 9 weeks gestation of Forms: ED Department Discharge - My Orders Last 24 Hours: My Active Orders 06/22/16 13:53 Cardiac Monitoring [RC] . DIRECTED Sodium Chloride 0.9% [Saline Flush] 10 ml FLUSH ASDIRECTED PRN Peripheral IV Insertion Adult [OM.PC] Stat 06/22/16 13:54 Peripheral IV Care [RC] . DIRECTED ED Antiemetic Medication Reflex [OM.PC] Stat 06/22/16 14:00 Lactated Ringers [Ringers, Lactated] 1,000 ml IV .BOLUS - Assessment/Plan Last 24 Hours: My Active Orders 06/22/16 13:53 Cardiac Monitoring [RC] . DIRECTED Sodium Chloride 0.9% [Saline Flush] 10 ml FLUSH ASDIRECTED PRN Peripheral IV Insertion Adult [OM.PC] Stat 06/22/16 13:54 Peripheral IV Care [RC] . DIRECTED ED Antiemetic Medication Reflex [OM.PC] Stat 06/22/16 14:00 Lactated Ringers [Ringers, Lactated] 1,000 ml IV .BOLUS
[2016-06-22] MEDS ORDERED: Promethazine 25 MG/ML SDV IM ONE (15:17)
--- NOTE | 2016-06-22 16:51 | US ---
First trimester obstetrical ultrasound: Multiple real-time images were obtained transvaginally. Comparison: Previous study of 06/14/16. Dates: LMP: LMP given as 04/20/16, ANETA 01/25/17, gestational age 9 weeks 0 days Current ultrasound: ANETA 01/19/17, gestational age 9 weeks 6 days Earliest ultrasound (06/09/16): ANETA 01/23/17, gestational age 9 weeks 2 days Single intrauterine gestation is seen. Amniotic fluid volume is normal. Embryo and yolk sac are seen. Embryo has grown since previous exam. Small hypoechoic fluid-filled structure is seen next to the gestational sac of uncertain etiology but will likely be incidental. There is some debris being seen within the gestational sac. Maternal ovaries are seen and are unremarkable. Measurements: Manlius-rump length: 24.76 mm - 9 weeks 2 days Mean sac diameter: 4.64 cm - 10 weeks 3 days Heart rate: 192 bpm Impression: 1. Single intrauterine gestation. Dates as noted above. 2. Embryo shows growth from prior study. Normal heart activity is seen. 3. Debris seen within the gestational sac. Small amount of focal fluid seen next to the gestational sac of uncertain etiology but likely will be incidental. 4. Sediment identified within the maternal bladder. Please rule out UTI. Diagnostic code #3
--- NOTE | 2016-06-22 17:18 | PCM.LDHP ---
L&D History of Present Illness - General Date of Service: 06/22/16 Admit Problem/Dx: Admission Diagnosis/Problem Admission Diagnosis/Problem Source of Information: Patient History Limitations: Reports: No limitations - History of Present Illness Introduction:: 21 y/o at ~9 wks admitted for n/v of . Patient has been admitted 3 other times this for similar complaints. States that today she started to feel more sick and reports vomiting "20 times" today. Also has been noticing abdominal pain. Denies bleeding or spotting. No urination complaints. Has not had a BM in several days, but feels like she's about to have diarrhea. No fevers, chills, chest, pain, SOB. 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 : 2 Para: 0 LMP (Approximate): Psychiatric History: Reports: Anxiety - Past Surgical History GI Surgical History: Reports: Cholecystectomy Social & Family History - Family History Family Medical History: Noncontributory - Tobacco Use Smoking Status *Q: Never Smoker Second Hand Smoke Exposure: No - Caffeine Use Caffeine Use: Reports: Soda Other Caffeine Use: one daily - Alcohol Use Alcohol Use History: No - Recreational Drug Use Recreational Drug Use: No - Living Situation & Occupation Living situation: Reports: , with spouse H&P Review of Systems - Review of Systems: Review Of Systems: See Below General: Reports: fatigue Pulmonary: Reports: No Symptoms Cardiovascular: Reports: no symptoms Gastrointestinal: Reports: Abdominal pain, Nausea, Vomiting Genitourinary: Reports: no symptoms Musculoskeletal: Reports: no symptoms L&D Exam - Exam Exam: See Below - Vital Signs Vital Signs: Last Vital Signs Temp 36.8 C 06/22/16 13:27 Pulse 130 H 06/22/16 13:27 Resp 20 06/22/16 13:27 BP 154/92 H 06/22/16 13:27 Pulse Ox 97 06/22/16 13:27 Weight: 88.451 kg - Exam General: alert, oriented Lungs: Clear to auscultation, Normal respiratory effort Cardiovascular: regular rhythm, tachycardia Abdomen: soft Back Exam: normal inspection Extremities: normal inspection Skin: warm, dry, intact - Patient Data Lab Results last 24 hrs: Laboratory Results - last 24 hr 06/22/16 06/22/16 06/22/16 Range/Units 13:30 13:30 13:30 WBC 9.61 (3.98-10.04) K/mm3 RBC 5.01 (3.98-5.22) M/mm3 Hgb 14.7 (11.2-15.7) gm/L Hct 40.5 (34.1-44.9) % MCV 80.8 (79.4-94.8) fl MCH 29.3 (25.6-32.2) pg MCHC 36.3 H (32.2-35.5) g/dl RDW Std Deviation 36.5 (36.4-46.3) fL Plt Count 226 (182-369) K/mm3 MPV 12.1 (9.4-12.3) fl Neut % (Auto) 82.7 H (34.0-71.1) % Lymph % (Auto) 5.8 L (19.3-51.7) % Divide % (Auto) 11.2 (4.7-12.5) % Eos % (Auto) 0 L (0.7-5.8) Baso % (Auto) 0.0 L (0.1-1.2) % Neut # (Auto) 7.94 H (1.56-6.13) K/mm3 Lymph # (Auto) 0.56 L (1.18-3.74) K/mm3 [place] # (Auto) 1.08 H (0.24-0.36) K/mm3 Eos # (Auto) 0.00 L (0.04-0.36) K/mm3 Baso # (Auto) 0.00 L (0.01-0.08) K/mm3 Manual Slide Review Normal smear Sodium 137 (136-145) mEq/L Potassium 3.7 (3.5-5.1) mEq/L Chloride 100 (98-107) mEq/L Carbon Dioxide 22 (21-32) mEq/L Anion Gap 18.7 H (5-15) BUN 6 L (7-18) mg/dL Creatinine 0.7 (0.55-1.02) mg/dL Est Cr Clr Drug Dosing 138.63 mL/min Estimated GFR (MDRD) > 60 (>60) mL/min BUN/Creatinine Ratio 8.6 L (14-18) Glucose 89 (74-106) mg/dL Calcium 9.7 (8.5-10.1) mg/dL Magnesium 1.7 L (1.8-2.4) mg/dl Total Bilirubin 0.7 (0.2-1.0) mg/dL AST 53 H (15-37) U/L ALT 118 H (14-59) U/L Alkaline Phosphatase 82 (46-116) U/L Total Protein 7.8 (6.4-8.2) g/dl Albumin 3.9 (3.4-5.0) g/dl Globulin 3.9 gm/dL Albumin/Globulin Ratio 1.0 (1-2) Lipase 77 (73-393) U/L Urine Color (Yellow) Urine Appearance (Clear) Urine pH (5.0-8.0) Ur Specific [place] (1.005-1.030) Urine Protein (Negative) Urine Glucose (UA) (Negative) Urine Ketones (Negative) Urine Occult Blood (Negative) Urine Nitrite (Negative) Urine Bilirubin (Negative) Urine Urobilinogen (0.2-1.0) Ur Leukocyte Esterase (Negative) Urine RBC (0-5) /hpf Urine WBC (0-5) /hpf Ur Squamous Epith Cells (0-5) /hpf Urine Bacteria (FEW) /hpf Urine Mucus (FEW) /hpf Urine Opiates Screen (NEGATIVE) Ur Buprenorphine Scrn (NEGATIVE) Ur Oxycodone Screen (NEGATIVE) Urine Methadone Screen (NEGATIVE) Ur Propoxyphene Screen (NEGATIVE) Ur Barbiturates Screen (NEGATIVE) Ur Tricyclics Screen (NEGATIVE) Ur Phencyclidine Scrn (NEGATIVE) Ur Amphetamine Screen (NEGATIVE) U Methamphetamines Scrn (NEGATIVE) U Benzodiazepines Scrn (NEGATIVE) U Cocaine Metab Screen (NEGATIVE) U Marijuana (THC) Screen (NEGATIVE) Ethyl Alcohol 0.00 (0.00) gm% 03/29/17 03/29/17 Range/Units 15:10 15:10 WBC (3.98-10.04) K/mm3 RBC (3.98-5.22) M/mm3 Hgb (11.2-15.7) gm/L Hct (34.1-44.9) % MCV (79.4-94.8) fl MCH (25.6-32.2) pg MCHC (32.2-35.5) g/dl RDW Std Deviation (36.4-46.3) fL Plt Count (182-369) K/mm3 MPV (9.4-12.3) fl Neut % (Auto) (34.0-71.1) % Lymph % (Auto) (19.3-51.7) % Divide % (Auto) (4.7-12.5) % Eos % (Auto) (0.7-5.8) Baso % (Auto) (0.1-1.2) % Neut # (Auto) (1.56-6.13) K/mm3 Lymph # (Auto) (1.18-3.74) K/mm3 [place] # (Auto) (0.24-0.36) K/mm3 Eos # (Auto) (0.04-0.36) K/mm3 Baso # (Auto) (0.01-0.08) K/mm3 Manual Slide Review Sodium (136-145) mEq/L Potassium (3.5-5.1) mEq/L Chloride (98-107) mEq/L Carbon Dioxide (21-32) mEq/L Anion Gap (5-15) BUN (7-18) mg/dL Creatinine (0.55-1.02) mg/dL Est Cr Clr Drug Dosing mL/min Estimated GFR (MDRD) (>60) mL/min BUN/Creatinine Ratio (14-18) Glucose (74-106) mg/dL Calcium (8.5-10.1) mg/dL Magnesium (1.8-2.4) mg/dl Total Bilirubin (0.2-1.0) mg/dL AST (15-37) U/L ALT (14-59) U/L Alkaline Phosphatase (46-116) U/L Total Protein (6.4-8.2) g/dl Albumin (3.4-5.0) g/dl Globulin gm/dL Albumin/Globulin Ratio (1-2) Lipase (73-393) U/L Urine Color Yellow (Yellow) Urine Appearance Clear (Clear) Urine pH 6.0 (5.0-8.0) Ur Specific [place] > or = 1.030 (1.005-1.030) Urine Protein 2+ H (Negative) Urine Glucose (UA) Negative (Negative) Urine Ketones 4+ H (Negative) Urine Occult Blood Negative (Negative) Urine Nitrite Negative (Negative) Urine Bilirubin 1+ H (Negative) Urine Urobilinogen 1.0 (0.2-1.0) Ur Leukocyte Esterase Negative (Negative) Urine RBC 0-5 (0-5) /hpf Urine WBC 0-5 (0-5) /hpf Ur Squamous Epith Cells 0-5 (0-5) /hpf Urine Bacteria Few (FEW) /hpf Urine Mucus Many H (FEW) /hpf Urine Opiates Screen Negative (NEGATIVE) Ur Buprenorphine Scrn Negative (NEGATIVE) Ur Oxycodone Screen Negative (NEGATIVE) Urine Methadone Screen Negative (NEGATIVE) Ur Propoxyphene Screen Negative (NEGATIVE) Ur Barbiturates Screen Negative (NEGATIVE) Ur Tricyclics Screen Negative (NEGATIVE) Ur Phencyclidine Scrn Negative (NEGATIVE) Ur Amphetamine Screen Negative (NEGATIVE) U Methamphetamines Scrn Negative (NEGATIVE) U Benzodiazepines Scrn Negative (NEGATIVE) U Cocaine Metab Screen Negative (NEGATIVE) U Marijuana (THC) Screen Negative (NEGATIVE) Ethyl Alcohol (0.00) gm% Result Diagrams: 06/22/16 13:30 06/22/16 13:30 - Problem List (1) 9 weeks gestation of SNOMED Code(s): 698817 ICD Code: Z3A.09 - 9 WEEKS GESTATION OF Status: Acute Current Visit: Yes (2) Nausea and vomiting during SNOMED Code(s): 05460315 ICD Code: O21.9 - VOMITING OF , UNSPECIFIED Status: Acute Current Visit: Yes Problem List Initiated/Reviewed/Updated: Yes Orders Last 24hrs: Active Orders 24 hr Category Date Time Status Cardiac Monitoring [RC] . DIRECTED Care 06/22/16 13:53 Active Peripheral IV Care [RC] . DIRECTED Care 06/22/16 13:54 Active Lactated Ringers [Ringers, Lactated] 1,000 ml Med 06/22/16 14:00 Active IV .BOLUS Sodium Chloride 0.9% [Saline Flush] Med 06/22/16 13:53 Active 10 ml FLUSH ASDIRECTED PRN ED Antiemetic Medication Reflex [OM.PC] Stat Oth 06/22/16 13:54 Ordered Peripheral IV Insertion Adult [OM.PC] Stat Oth 06/22/16 13:53 Ordered Medication Orders Lactated Ringer's (Ringers, Lactated) 1,000 mls @ 500 mls/hr IV .BOLUS KIKI Last Admin: 06/22/16 14:02 Dose: 500 mls/hr Sodium Chloride (Saline Flush) 10 ml FLUSH ASDIRECTED PRN PRN Reason: Keep Vein Open Last Admin: 06/22/16 13:30 Dose: 10 ml Assessment/Plan Comment:: N/v of * Will admit for observation * Scheduled Unisom nightly, B6 TID, Zofran q 8 hours, Phenergan q 6 hours. * IVF at 100 cc/hr * Repeat labs in AM
[2016-06-22] MEDS ORDERED: Ondansetron 4 MG/2 ML SDV IVPUSH SCH (18:00)
[2016-06-22] MEDS: Lactated Ringers 1,000 ML IV SCH (18:31)
[2016-06-22] MEDS ORDERED: Simethicone 80 MG Tab.Chew PO PRN (20:56)
[2016-06-22] MEDS ORDERED: Docusate Sodium 100 MG Cap PO PRN (20:56)
[2016-06-22] MEDS ORDERED: UNISOM 25 MG PO SCH (21:00)
[2016-06-22] MEDS: Promethazine 12.5 MG in Sodium Chloride 0.9% 50 ML IV SCH (21:01)
[2016-06-22] MEDS: Vitamin B6-pyridOXINE 50 MG Tab PO SCH (23:03)
[2016-06-23] MEDS: Promethazine 12.5 MG in Sodium Chloride 0.9% 50 ML IV SCH ×3 (01:20→13:35)
[2016-06-23] MEDS ORDERED: Ondansetron 8 MG in Sodium Chloride 0.9% 50 ML IV SCH (02:00)
[2016-06-23] MEDS ORDERED: Ondansetron 4 MG/2 ML SDV IVPUSH SCH (02:00)
[2016-06-23] MEDS: Lactated Ringers 1,000 ML IV SCH (05:16)
--- NOTE | 2016-06-23 08:29 | PCM.PN ---
- General Info Date of Service: 06/23/16 - Review of Systems General: Reports: Fatigue Pulmonary: Reports: no symptoms Cardiovascular: Reports: No Symptoms Gastrointestinal: Reports: Abdominal pain, Nausea, Vomiting Genitourinary: Reports: no symptoms Musculoskeletal: Reports: no symptoms - Patient Data Vitals - most recent: Last Vital Signs Temp 37.2 C 06/23/16 07:42 Pulse 93 06/23/16 07:42 Resp 18 06/23/16 07:42 BP 143/87 H 06/23/16 07:42 Pulse Ox 99 06/23/16 07:42 Weight - most recent: 87.498 kg I&O - last 24 hours: Intake & Output 06/22/16 06/23/16 06/23/16 22:59 06:59 14:59 Intake Total 50 1105 Output Total 300 Balance 50 805 Lab Results last 24 hrs: Laboratory Results - last 24 hr 06/23/16 Range/Units 06:47 Sodium 136 (136-145) mEq/L Potassium 3.5 (3.5-5.1) mEq/L Chloride 100 (98-107) mEq/L Carbon Dioxide 24 (21-32) mEq/L Anion Gap 15.5 H (5-15) BUN 5 L (7-18) mg/dL Creatinine 0.6 (0.55-1.02) mg/dL Est Cr Clr Drug Dosing 161.74 mL/min Estimated GFR (MDRD) > 60 (>60) mL/min BUN/Creatinine Ratio 8.3 L (14-18) Glucose 79 (74-106) mg/dL Calcium 9.1 (8.5-10.1) mg/dL Total Bilirubin 0.7 (0.2-1.0) mg/dL AST 40 H (15-37) U/L ALT 100 H (14-59) U/L Alkaline Phosphatase 76 (46-116) U/L Total Protein 7.0 (6.4-8.2) g/dl Albumin 3.5 (3.4-5.0) g/dl Globulin 3.5 gm/dL Albumin/Globulin Ratio 1.0 (1-2) Med Orders - Current: Current Medications Docusate Sodium (Colace) 100 mg PO BID PRN PRN Reason: Constipation Promethazine HCl 12.5 mg/ (Sodium Chloride) 50.5 mls @ 200 mls/hr IV Q6H [facility] Last Admin: 06/23/16 08:14 Dose: 200 mls/hr Ondansetron HCl (Zofran Odt) 8 mg PO Q8H [facility] Unisom 25 Mg 0 each PO BEDTIME [facility] Last Admin: 06/23/16 00:46 Dose: Not Given Pyridoxine HCl (Vitamin B6-Pyridoxine) 25 mg PO TID [facility] Last Admin: 06/22/16 23:03 Dose: Not Given Simethicone (Simethicone) 80 mg PO Q4H PRN PRN Reason: Gas Sodium Chloride (Saline Flush) 10 ml FLUSH ASDIRECTED PRN PRN Reason: Keep Vein Open Last Admin: 06/22/16 13:30 Dose: 10 ml Discontinued Medications Lactated Ringer's (Ringers, Lactated) 1,000 mls @ 500 mls/hr IV .BOLUS [facility] Last Admin: 06/22/16 14:02 Dose: 500 mls/hr Lactated Ringer's (Ringers, Lactated) 1,000 mls @ 100 mls/hr IV ASDIRECTED [facility] Last Admin: 06/23/16 05:16 Dose: 100 mls/hr Ondansetron HCl 8 mg/ Sodium (Chloride) 54 mls @ 108 mls/hr IV Q8H [facility] Last Admin: 06/23/16 03:10 Dose: 108 mls/hr Metoclopramide HCl (Reglan) 10 mg IVPUSH ONETIME ONE Stop: 06/22/16 13:54 Last Admin: 06/22/16 14:00 Dose: 10 mg Ondansetron HCl (Zofran) 8 mg IVPUSH Q8H [facility] Last Admin: 06/22/16 18:30 Dose: 8 mg Ondansetron HCl (Zofran) 8 mg IVPUSH Q8H [facility] Last Admin: 06/23/16 03:18 Dose: Not Given Promethazine HCl (Phenergan) 25 mg IM ONETIME ONE Stop: 06/22/16 15:18 Last Admin: 06/22/16 15:38 Dose: 25 mg - Exam General: alert, oriented, cooperative Abdomen: soft, no tenderness Extremities: no edema Skin: warm, dry, intact - Problem List & Annotations (1) 9 weeks gestation of SNOMED Code(s): 116098 Code(s): Z3A.09 - 9 WEEKS GESTATION OF Status: Acute Current Visit: Yes (2) Nausea and vomiting during SNOMED Code(s): 24061255 Code(s): O21.9 - VOMITING OF , UNSPECIFIED Status: Acute Current Visit: Yes - Problem List Review Problem List Initiated/Reviewed/Updated: Yes - My Orders Last 24 Hours: My Active Orders 06/22/16 17:47 May Take Own Home Medications [OM.PC] Routine 06/22/16 20:56 Docusate Sodium [Colace] 100 mg PO BID PRN Simethicone 80 mg PO Q4H PRN 06/22/16 21:00 Patient's Own Medication [Ptom] 0 each PO BEDTIME Vitamin B6-pyridOXINE 25 mg PO TID 06/23/16 10:00 Ondansetron [Zofran ODT] 8 mg PO Q8H - Assessment Assessment:: 21 y/o HD#2 admitted for n/v of - Plan Plan:: N/v of * D/c IVF * Scheduled Unisom nightly, B6 TID. Scheduled Zofran, will switch to PO. Continue scheduled IV phenergan * Labs done again and improved * Flexeril for abdominal pain, likely from retching * Nursing requests Psych consult as patient has had multiple admissions in the last few weeks. Will place for today
[2016-06-23] MEDS: Ondansetron 4 MG Tab.DIS PO SCH ×3 (09:32→17:39)
[2016-06-23] MEDS: Vitamin B6-pyridOXINE 50 MG Tab PO SCH ×2 (09:32→16:59)
[2016-06-23] MEDS: Cyclobenzaprine 10 MG Tab PO PRN ×2 (09:33→17:39)
[2016-06-23] MEDS ORDERED: FLUoxetine 20 MG Cap PO SCH (11:45)
--- NOTE | 2016-06-23 13:41 | PCM.SN ---
- Free Text/Narrative Note: 06/23/2016 - 1400 Patient doing well since this morning. States that she feels ready for discharge. Has met with Dr. Melvin who is going to start her on Prozac. States she will try to continue the same regimen she's been doing in the hospital for her nausea. Reports she has not been able to fill prescriptions in the past as she does not have any insurance and does not want to ask her boyfriend or her boyfriend's family for money. Discussed with case management and they will help her arrange appointments with [facility] to establish Medicaid. Prescriptions will be sent for B6 and Unisom which she was instructed she can nut picker [id number]. She should use these scheduled along with scheduled Zofran. Phenergan can be used as needed. We'll send her a small prescription for Flexeril as well as this seems to have helped her abdominal wall pain after all of her retching and emesis. She will follow-up with me in clinic next week. Will be given phone numbers for clinic on labor and delivery should she decompensate over the weekend. Dotty Chavez MD
--- NOTE | 2016-06-23 13:47 | PCM.DCSUM1 ---
Discharge Summary - Discharge Data Discharge Date: 06/23/16 Discharge Disposition: Home, Self-Care 01 Condition: Good - Discharge Diagnosis/Problem(s) (1) 9 weeks gestation of SNOMED Code(s): 664873 ICD Code: Z3A.09 - 9 WEEKS GESTATION OF Status: Acute Current Visit: Yes (2) Nausea and vomiting during SNOMED Code(s): 80219138 ICD Code: O21.9 - VOMITING OF , UNSPECIFIED Status: Acute Current Visit: Yes - Patient Summary/Data Complications: None Consults: Psychiatry - Dr. Melvin Recommended Follow-up Testing/Procedures: Follow up with Dr. Chavez on 06/27/2016 to assess symptoms and for repeat laboratory testing Hospital Course: Patient is a 21-year-old at ~9 weeks gestation who was admitted for complaints of nausea and vomiting. This is her fourth admission this . In addition to these admissions has been evaluated on several other occasions in the emergency room. She was started on IV fluids and a regimen of scheduled B6, Unisom, scheduled IV Zofran, and PRN IV Phenergan. On hospital day #2 her IV fluids were discontinued and her IV Zofran was switched to oral medications. She did well on this regimen and also with Flexeril as needed for her abdominal wall pain after vomiting. She was also seen by psychiatry per the recommendation of case management who felt she suffered from depression and started her on Prozac. By the end of hospital day 2 patient was feeling much improved and did agree that she was ready for discharge home. She is given strict instructions to continue her nausea and vomiting medications as prescribed. She was also instructed to follow up with me in clinic on Monday, June 27. She will otherwise return if any new concerns or complaints. She will also attempt to set up insurance through Medicaid prior to first evaluation in clinic - Patient Instructions Diet: Regular Diet as Tolerated Activity: As Tolerated Driving: May Drive Today Notify Provider of: Increased Pain, Nausea and/or Vomiting - Discharge Plan Prescriptions/Med Rec: Cyclobenzaprine [Flexeril] 10 mg PO TID PRN #45 tablet PRN Reason: Pain FLUoxetine [PROzac] 20 mg PO DAILY #30 cap Ondansetron [Zofran ODT] 8 mg PO Q8H #42 tab.dis Promethazine [Phenergan] 25 mg PO Q6H #90 tablet Vitamin B6-pyridOXINE 25 mg PO TID #90 tablet Home Medications: Home Meds PNV95/Ferrous Fumarate/FA [ Tablet] 1 each PO DAILY 06/08/16 [History] Cyclobenzaprine [Flexeril] 10 mg PO TID PRN #45 tablet 06/23/16 [Rx] FLUoxetine [PROzac] 20 mg PO DAILY #30 cap 06/23/16 [Rx] Ondansetron [Zofran ODT] 8 mg PO Q8H #42 tab.dis 06/23/16 [Rx] Promethazine [Phenergan] 25 mg PO Q6H #90 tablet 06/23/16 [Rx] Vitamin B6-pyridOXINE 25 mg PO TID #90 tablet 06/23/16 [Rx] Forms: ED Department Discharge Referrals: Dotty Chavez MD [Primary Care Provider] - 06/27/16 10:45 am - Discharge Summary/Plan Comment DC Time >30 min.: No - Patient Data Vitals - Most Recent: Last Vital Signs Temp 37.2 C 06/23/16 07:42 Pulse 93 06/23/16 07:42 Resp 18 06/23/16 07:42 BP 143/87 H 06/23/16 07:42 Pulse Ox 99 06/23/16 07:42 Weight - Most Recent: 87.498 kg I&O - Last 24 hours: Intake & Output 06/22/16 06/23/16 06/23/16 22:59 06:59 14:59 Intake Total 50 1105 Output Total 300 Balance 50 805 Lab Results - Last 24 hrs: Laboratory Results - last 24 hr 06/23/16 Range/Units 06:47 Sodium 136 (136-145) mEq/L Potassium 3.5 (3.5-5.1) mEq/L Chloride 100 (98-107) mEq/L Carbon Dioxide 24 (21-32) mEq/L Anion Gap 15.5 H (5-15) BUN 5 L (7-18) mg/dL Creatinine 0.6 (0.55-1.02) mg/dL Est Cr Clr Drug Dosing 161.74 mL/min Estimated GFR (MDRD) > 60 (>60) mL/min BUN/Creatinine Ratio 8.3 L (14-18) Glucose 79 (74-106) mg/dL Calcium 9.1 (8.5-10.1) mg/dL Total Bilirubin 0.7 (0.2-1.0) mg/dL AST 40 H (15-37) U/L ALT 100 H (14-59) U/L Alkaline Phosphatase 76 (46-116) U/L Total Protein 7.0 (6.4-8.2) g/dl Albumin 3.5 (3.4-5.0) g/dl Globulin 3.5 gm/dL Albumin/Globulin Ratio 1.0 (1-2) Med Orders - Current: Current Medications Cyclobenzaprine HCl (Flexeril) 10 mg PO TID PRN PRN Reason: Pain Last Admin: 06/23/16 09:33 Dose: 10 mg Docusate Sodium (Colace) 100 mg PO BID PRN PRN Reason: Constipation Fluoxetine HCl (Prozac) 20 mg PO DAILY [facility] Last Admin: 06/23/16 13:35 Dose: 20 mg Promethazine HCl 12.5 mg/ (Sodium Chloride) 50.5 mls @ 200 mls/hr IV Q6H [facility] Last Admin: 06/23/16 13:35 Dose: 200 mls/hr Ondansetron HCl (Zofran Odt) 8 mg PO Q8H [facility] Last Admin: 06/23/16 09:32 Dose: 8 mg Unisom 25 Mg 0 each PO BEDTIME [facility] Last Admin: 06/23/16 00:46 Dose: Not Given Pyridoxine HCl (Vitamin B6-Pyridoxine) 25 mg PO TID [facility] Last Admin: 06/23/16 09:32 Dose: 25 mg Simethicone (Simethicone) 80 mg PO Q4H PRN PRN Reason: Gas Sodium Chloride (Saline Flush) 10 ml FLUSH ASDIRECTED PRN PRN Reason: Keep Vein Open Last Admin: 06/22/16 13:30 Dose: 10 ml Discontinued Medications Lactated Ringer's (Ringers, Lactated) 1,000 mls @ 500 mls/hr IV .BOLUS [facility] Last Admin: 06/22/16 14:02 Dose: 500 mls/hr Lactated Ringer's (Ringers, Lactated) 1,000 mls @ 100 mls/hr IV ASDIRECTED [facility] Last Admin: 06/23/16 05:16 Dose: 100 mls/hr Ondansetron HCl 8 mg/ Sodium (Chloride) 54 mls @ 108 mls/hr IV Q8H [facility] Last Admin: 06/23/16 03:10 Dose: 108 mls/hr Metoclopramide HCl (Reglan) 10 mg IVPUSH ONETIME ONE Stop: 06/22/16 13:54 Last Admin: 06/22/16 14:00 Dose: 10 mg Ondansetron HCl (Zofran) 8 mg IVPUSH Q8H [facility] Last Admin: 06/22/16 18:30 Dose: 8 mg Ondansetron HCl (Zofran) 8 mg IVPUSH Q8H [facility] Last Admin: 06/23/16 03:18 Dose: Not Given Promethazine HCl (Phenergan) 25 mg IM ONETIME ONE Stop: 06/22/16 15:18 Last Admin: 06/22/16 15:38 Dose: 25 mg *Q Meaningful Use (DIS) - VTE *Q VTE Criteria *Q: - Stroke *Q Stroke Criteria *Q: - AMI *Q AMI Criteria *Q:
[2016-06-23 14:14] VITALS: BP 135/82
--- NOTE | 2016-06-23 18:36 | CONS ---
CONSULTING PHYSICIAN: Mike Melvin MD DATE OF CONSULTATION: 06/23/2016 This is a 60-minute inpatient clinical event. IDENTIFICATION: The patient is a 21-year-old female who is admitted to the inpatient medical unit at [facility] on 06/22/2016. She is seen for psychiatric evaluation this morning. CHIEF COMPLAINT: "I can't stop throwing up and I am nauseous." HISTORY OF PRESENT ILLNESS: The patient is a 21-year-old female who reports that she is 9 weeks , and she has been struggling with severe nausea and vomiting. As a result, she has gotten more depressed. She states her symptoms of nausea and vomiting started about four and a half weeks, and they have been ongoing and persistent since that time. She has had previous hospitalizations, and they have given her IV Phenergan "which worked, but then they keep stopping it." She states that if she could get the nausea and vomiting under control, she would feel better. Per Treatment Team report, the patient is not following through on her prescribed treatment regimen when she is at home. Evidently, she is prescribed Reglan to take for the nausea when she is back into community, but she is not taking this agent regularly, and the team is feeling this may be part of the reason that she is having the severe nausea and vomiting. The patient denies that she is suicidal or homicidal. She denies any psychotic, delusional, or paranoid symptoms. She denies any illicit substance use or excessive alcohol that is complicating the clinical picture. She does endorse symptoms of depression and anxiety, but does feel that depression and anxiety are secondary to the nausea and vomiting and not the other way around. MEDICATIONS: At time of presentation; 1. IV Phenergan. 2. Reglan. 3. Unisom. 4. Vitamin B6. ALLERGIES: No known drug allergies. PAST MEDICAL HISTORY: The patient is 9 weeks . REVIEW OF SYSTEMS: Aside from reproductive and genitourinary, all other major organ systems are negative at this point in time for acute difficulties or complications. FAMILY PSYCHIATRIC AND CD HISTORY: The patient denies. PAST PSYCHIATRIC AND CD HISTORY: The patient denies any previous psychiatric hospitalizations or chemical dependency treatment. She is a nontobacco user. Past psychiatric diagnosis of anxiety. Dr. Chavez is the patient's primary [employer] GR[employer]ING [facility]ACHINE ADJUSTER. SOCIAL HISTORY: The patient was born in [place], [place], raised in [facility]. She is the third of 4 siblings and 3 brothers. The patient's parents when the patient was 13 years of age. She split time between both her father and mother. Father worked in the [employer], current enlisted. Mother worked at a restaurant. The patient moved to [place] in 01/2016 to be with her boyfriend. She has been with him for the past 6 to 7 months. She lives with her boyfriend and his family out in [place], and the boyfriend works in the [employer]. The patient states this is her second . She had one miscarriage at 17 years of age. She denies any prior service or current legal difficulties. She considers herself agnostic. She enjoys photography and baking. MENTAL STATUS EXAM: The patient is a 21-year-old white female in no apparent distress. Speech is of regular rate and rhythm. The patient is cognitively oriented. Psychomotor activities within normal limits. There is no abnormal motor movements or tics observed. Gait and station are not observed. This patient is bedbound during the course of the consult. Mood is depressed. Affect is consistent with stated mood. Restricted and uncomfortable appearing secondary to the nausea and vomiting, but cooperative overall for the purposes of the inpatient psychiatric consult. There is no behavioral or stated evidence of acute suicidal or homicidal ideation or acute psychotic, delusional, or paranoid symptoms. Thought processes are preoccupied with the nausea and vomiting. There are no manic symptoms or loose associations evident. Judgment and insight appear unimpaired at this point in time. Motivation for help appears good. Vital signs are stable at the time of presentation. IMPRESSION: Ailey I. 1. Depression, not otherwise specified, F32.9. 2. Anxiety disorder, not otherwise specified, F41.9. 3. Rule out major depressive disorder. Ailey II: None. Ailey III: The patient is 9 weeks . Ailey IV: Severe. Ailey v: 55-60. PLAN: 1. Begin Prozac 20 mg q.a.m. to help with mood and anxiety symptoms. 2. Continue current treatment plan as outlined by the patient's primary OB[employer] GRINDING MACHINE ADJUSTER and medical treatment team to help with nausea and vomiting. 3. Recommend that the patient followup with outpatient OB[employer] GRINDING MACHINE ADJUSTER when medically stable and discharge back to community. 4. Recommend that the patient followup with outpatient Psychiatry when discharged back to community to assess overall function efficacy of her newly initiated psychiatric medication regimen. 5. We will continue follow up with the patient on an as-needed basis while she remains on the medical unit. 6. We will follow up with the patient sooner if any complications in the interim. 7. Crisis plan is in place. ANGELI /[id number]
== END 2016-06-23 18:00 | disposition home or self-care (01) ==
LOC: JD.ED 13:16 → JD.OB 17:19 → JD.MS 23:32
PROVIDERS: ADMIT Obstetrics & Gynecology; ATTEND Obstetrics & Gynecology
DX: O21.1 Hyperemesis gravidarum with metabolic disturbance (principal); Z3A.09 9 weeks gestation of pregnancy; F41.8 Other specified anxiety disorders; F32.9 Major depressive disorder, single episode, unspecified; F41.9 Anxiety disorder, unspecified
CPT/HCPCS: 36415; 76817; 80053; 80306; 81001; 83690; 83735; 85025; 96361; 96372; 96374; 99285; A9270; G0480; J2405; J2550; J2765; J7050; J7120; 96365; 96366; 96367; 96375; 96376; 99284; G0378